=== PATIENT | female | born 1945 | race Caucasian/White ===

== ENCOUNTER 2022-07-26 07:52 | Outpatient (RCR) | payer MEDICARE, SELFPAY | END 2022-10-09 14:10 | disposition home or self-care (01) | LOC: HO.WCC 07:52 | PROVIDERS: PCP Internal Medicine; Referring Provider Podiatrist; Visit Provider Physician Assistant | DX: L97.512 Non-pressure chronic ulcer of other part of right foot with fat layer exposed (principal); G60.8 Other hereditary and idiopathic neuropathies; R73.9 Hyperglycemia, unspecified; I10 Essential (primary) hypertension; Z79.01 Long term (current) use of anticoagulants; Z79.899 Other long term (current) drug therapy | CPT/HCPCS: 11042; 11055; 99202; 99212 ==

== ENCOUNTER 2022-10-22 15:05 | Outpatient (RCR) | payer MEDICARE, SELFPAY ==
--- NOTE | ~2022-10-22 | XR_ITS ---
EXAMINATION: XR TOES, RIGHT CLINICAL INFORMATION: Right great toe nonhealing wound. Rule out osteomyelitis. COMPARISON: None TECHNIQUE: 3 views of the right toes were obtained. FINDINGS: There is an overlying bandage present. No acute fracture or dislocation is evident. There is some soft tissue swelling seen about the 1st toe distal phalanx. No definite cortical erosion is appreciated on the provided films. There is some mild spurring present. No gas within the soft tissues or radiopaque foreign body appreciated. Patient is status post previous ankle surgery. XR/XR toe RT min 2V IMPRESSION: Soft tissue swelling with no definite x-ray evidence of osteomyelitis. MRI or bone scan would be more sensitive than plain film study to rule out osteomyelitis.
[2022-10-24 11:34] LABS: MANUAL DIFF FLAG NO
[2022-10-24 12:24] LABS: Basophils Percent Auto 0.4 % (0-2); Eosinophils Absolute Auto 0.1 X10*3/uL (0.0-0.4); Eosinophils Percent Auto 1.2 % (0-4); Hematocrit 39.4 % (37.0-47.0); Hemoglobin 13.4 g/dl (12.0-16.0); Imm Gran Abs Auto 0.01 X10*3/uL (0.00-0.03); Imm Gran Pct Auto 0.2 % (0.0-0.4); Lymphocytes Absolute Auto 2.1 X10*3/uL (1.2-4.9); Lymphocytes Percent Auto 41.7 % (20-40); Mean Corpuscular Hemoglobin 33.2 pg (27.0-33.0); Mean Corpuscular Volume 97.5 fL (80.0-98.0); Mean Platelet Volume 9.3 fL (9.4-12.3); Monocytes Absolute Auto 0.3 X10*3/uL (0.1-1.2); Monocytes Percent Auto 5.8 % (2-11); Neutrophils Absolute Auto 2.6 x10*3/uL (2.0-8.3); Neutrophils Percent Auto 50.7 % (45-73); Platelet Count 244 X10*3/uL (160-400); Red Blood Count 4.04 X10*6/uL (4.20-5.50); Red Cell Distribution Width 13.7 % (11.0-16.0)
[2022-10-24 12:49] LABS: Anion Gap 13 (12-20); Blood Urea Nitrogen 18 mg/dL (9-16); C Reactive Protein 0.25 mg/dL (< or = 0.50); Calcium 9.5 mg/dL (8.4-10.2); Carbon Dioxide 30 mmol/L (22-29); Chloride 102 mmol/L (96-108); Estimated Glomerular Filt Rate 52; Glucose Random 100 mg/dL (60-115); Sodium 141 mmol/L (135-145)
[2022-10-24 12:52] LABS: Estimated Average Glucose 111 mg/dL; Hemoglobin A1c % 5.5 %
[2022-10-24 13:08] LABS: Erythrocyte Sedimentation Rate 38 MM/HR (0-20)
== END 2023-01-29 16:00 | disposition home or self-care (01) ==
LOC: HO.WCC 15:05
PROVIDERS: PCP Internal Medicine; Visit Provider Physician Assistant
DX: E11.621 Type 2 diabetes mellitus with foot ulcer (principal); L97.512 Non-pressure chronic ulcer of other part of right foot with fat layer exposed; E11.69 Type 2 diabetes mellitus with other specified complication; M86.471 Chronic osteomyelitis with draining sinus, right ankle and foot; E11.40 Type 2 diabetes mellitus with diabetic neuropathy, unspecified; I10 Essential (primary) hypertension; L84 Corns and callosities; Z79.2 Long term (current) use of antibiotics
CPT/HCPCS: 11042; 36415; 73660; 80048; 83036; 84134; 85025; 85652; 86140; 87070; 87077; 87186; 87205; 97597; 99212

== ENCOUNTER 2022-11-22 12:26 | Outpatient (REF) | payer MEDICARE, SELFPAY ==
--- NOTE | ~2022-11-22 | MR_ITS ---
EXAMINATION: MRI RIGHT FOOT WITHOUT AND WITH CONTRAST CLINICAL INFORMATION: Nonhealing right great toe wound. Rule out osteomyelitis. COMPARISON: X-ray 10/24/2022. TECHNIQUE: MRI in a high-field magnet without and with contrast. 8.5 mL Gadavist. FINDINGS: There is edema and enhancement in the soft tissues/subcutaneous tissues of the 1st toe, suggestive of cellulitis. Question undersurface soft tissue irregularity/ulceration. No loculated drainable fluid collections. There is bright T2 with intermediate-low T1 signal and enhancement in the proximal aspect of the 1st distal phalanx, with signal changes and enhancement more distally as well. Findings are suspicious for osteomyelitis. No additional areas of osteomyelitis seen. No evidence of acute fracture. Visualized tendons intact. No appreciable tenosynovitis. Visualized plantar aponeurosis intact. Mild edema in the intrinsic muscles of foot, nonspecific, can be seen with denervation changes. MR/MR foot RT wo/w con IMPRESSION: 1. Soft tissue edema and cellulitis of the 1st toe. No loculated fluid collection or abscess. 2. Findings in the 1st distal phalanx, suspicious for osteomyelitis, described above.
== END 2022-11-22 12:27 | disposition home or self-care (01) ==
LOC: HO.MRI 12:26
PROVIDERS: PCP Nurse Practitioner Pediatrics; Visit Provider Physician Assistant
DX: L97.512 Non-pressure chronic ulcer of other part of right foot with fat layer exposed (principal)
CPT/HCPCS: 73720; A9585

== ENCOUNTER → 2022-12-10 10:43 | Outpatient (BNVA) | payer MEDICARE, SELFPAY | PROVIDERS: PCP Nurse Practitioner Pediatrics; Visit Provider Internal Medicine | DX: M86.9 Osteomyelitis, unspecified (principal) | CPT/HCPCS: 99202 ==

== ENCOUNTER 2022-12-27 10:08 | Outpatient (REF) | payer MEDICARE, SELFPAY ==
--- NOTE | 2022-12-27 12:40 | HO.PICC ---
PICC Line Insertion NPICC Diagnosis: OSTEOMYELITIS FOOT INFECTION Indication: [FCI ANTIBX] Pertinent Labs: [REVIEWED] Technique: Following informed consent including risks, benefits and alternatives and using sterile technique including cap and mask, sterile gown, glove and drape, the [RIGHT] arm was prepped and draped in the usual sterile fashion of full barrier technique with CHG. Following completion of [place] Protocol the skin and soft tissues were anesthetized with 1% Lidocaine plain. Using ultrasound guidance, [RIGHT BASILIC] vein access was obtained ON FIRST ATTEMPT. Over an 0.018 wire through peel-away sheath, a [4FR SINGLE LUMEN PASV PICC SOLO line was positioned. Catheter length is [37CM] internal length, [3CM] external length, for a total trimmed length of [40CM]. The procedure was performed in [RM. 272]. Tip verification was performed by Stephani Bowers with Sherlock 3CG. Tip located in SVC. Ultrasound was used to document vein patency and for needle entry. A formal ultrasound picture and cardiac rhythm strip was recorded. Vascular Sail Finisher Machine has released the line for use and it is currently dressed with a StatLock, Tegaderm, and CHG disc. Verification has been performed for blood return and line patency. Arm Circumference: [30CM] Equipment: [OrderAhead POWER PICC SOLO] Catheter Type: [4 FR SINGLE LUMEN PASV PICC] Lot #: [[id number]]
== END 2022-12-27 10:09 | disposition home or self-care (01) ==
LOC: HO.RADIR 10:08
PROVIDERS: PCP Internal Medicine
DX: Z13.89 Encounter for screening for other disorder (principal)
CPT/HCPCS: 36573; C1751

== ENCOUNTER 2022-12-27 12:35 | Outpatient (REF) | payer MEDICARE, SELFPAY | END 2022-12-27 12:36 | disposition home or self-care (01) | LOC: HO.MDS 12:35 | PROVIDERS: Visit Provider Internal Medicine | DX: Z45.2 Encounter for adjustment and management of vascular access device (principal); M86.9 Osteomyelitis, unspecified | CPT/HCPCS: 36573; 96365; C1751; J1335 ==

== ENCOUNTER → 2023-01-02 11:26 | Outpatient (BNVA) | payer MEDICARE, SELFPAY | PROVIDERS: PCP Internal Medicine; Visit Provider Internal Medicine | DX: M86.9 Osteomyelitis, unspecified (principal) | CPT/HCPCS: 99212 ==

== ENCOUNTER 2023-01-03 12:39 | Outpatient (REF) | payer MEDICARE, SELFPAY ==
[2023-01-03 12:43] LABS: MANUAL DIFF FLAG NO
[2023-01-03 12:47] LABS: Basophils Percent Auto 0.4 % (0-2); Eosinophils Absolute Auto 0.1 X10*3/uL (0.0-0.4); Eosinophils Percent Auto 1.5 % (0-4); Hematocrit 38.7 % (37.0-47.0); Hemoglobin 13.1 g/dl (12.0-16.0); Imm Gran Abs Auto 0.03 X10*3/uL (0.00-0.03); Imm Gran Pct Auto 0.4 % (0.0-0.4); Lymphocytes Absolute Auto 1.9 X10*3/uL (1.2-4.9); Lymphocytes Percent Auto 26.3 % (20-40); Mean Corpuscular HGB Conc 33.9 g/dl (31.0-35.0); Mean Corpuscular Hemoglobin 32.4 pg (27.0-33.0); Mean Corpuscular Volume 95.8 fL (80.0-98.0); Mean Platelet Volume 9.1 fL (9.4-12.3); Monocytes Absolute Auto 0.3 X10*3/uL (0.1-1.2); Monocytes Percent Auto 3.9 % (2-11); Neutrophils Absolute Auto 4.9 x10*3/uL (2.0-8.3); Neutrophils Percent Auto 67.5 % (45-73); Platelet Count 210 X10*3/uL (160-400); Red Blood Count 4.04 X10*6/uL (4.20-5.50); Red Cell Distribution Width 13.6 % (11.0-16.0); White Blood Count 7.2 X10*3/uL (4.8-10.8)
[2023-01-03 13:48] LABS: Blood Urea Nitrogen 20 mg/dL (9-16); Estimated Glomerular Filt Rate > 60
== END 2023-01-03 12:40 | disposition home or self-care (01) ==
LOC: HO.HVNA 12:39
PROVIDERS: Visit Provider Internal Medicine
DX: M86.171 Other acute osteomyelitis, right ankle and foot (principal)
CPT/HCPCS: 82565; 84520; 85025

== ENCOUNTER 2023-01-10 16:33 | Outpatient (REF) | payer MEDICARE, SELFPAY ==
[2023-01-10 16:38] LABS: MANUAL DIFF FLAG NO
[2023-01-10 16:48] LABS: Basophils Percent Auto 0.7 % (0-2); Eosinophils Absolute Auto 0.1 X10*3/uL (0.0-0.4); Eosinophils Percent Auto 2.1 % (0-4); Imm Gran Abs Auto 0.01 X10*3/uL (0.00-0.03); Imm Gran Pct Auto 0.2 % (0.0-0.4); Lymphocytes Absolute Auto 1.7 X10*3/uL (1.2-4.9); Lymphocytes Percent Auto 38.9 % (20-40); Mean Corpuscular HGB Conc 33.3 g/dl (31.0-35.0); Mean Corpuscular Hemoglobin 31.8 pg (27.0-33.0); Mean Corpuscular Volume 95.5 fL (80.0-98.0); Mean Platelet Volume 9.2 fL (9.4-12.3); Monocytes Absolute Auto 0.3 X10*3/uL (0.1-1.2); Monocytes Percent Auto 7.3 % (2-11); Neutrophils Absolute Auto 2.2 x10*3/uL (2.0-8.3); Neutrophils Percent Auto 50.8 % (45-73); Platelet Count 198 X10*3/uL (160-400); Red Blood Count 3.77 X10*6/uL (4.20-5.50); Red Cell Distribution Width 13.5 % (11.0-16.0); White Blood Count 4.4 X10*3/uL (4.8-10.8)
[2023-01-10 17:35] LABS: Blood Urea Nitrogen 20 mg/dL (9-16); Estimated Glomerular Filt Rate > 60
== END 2023-01-10 16:34 | disposition home or self-care (01) ==
LOC: HO.HVNA 16:33
PROVIDERS: Visit Provider Internal Medicine
DX: M86.171 Other acute osteomyelitis, right ankle and foot (principal)
CPT/HCPCS: 36415; 82565; 84520; 85025

== ENCOUNTER → 2023-01-16 13:56 | Outpatient (BNVA) | payer MEDICARE, SELFPAY | PROVIDERS: PCP Internal Medicine; Visit Provider Internal Medicine | DX: M86.679 Other chronic osteomyelitis, unspecified ankle and foot (principal) | CPT/HCPCS: 99212 ==

== ENCOUNTER 2023-01-17 15:45 | Outpatient (REF) | payer MEDICARE, SELFPAY ==
[2023-01-17 15:50] LABS: MANUAL DIFF FLAG NO
[2023-01-17 15:59] LABS: Basophils Percent Auto 0.3 % (0-2); Eosinophils Absolute Auto 0.1 X10*3/uL (0.0-0.4); Eosinophils Percent Auto 1.7 % (0-4); Hemoglobin 12.4 g/dl (12.0-16.0); Imm Gran Abs Auto 0.02 X10*3/uL (0.00-0.03); Imm Gran Pct Auto 0.3 % (0.0-0.4); Lymphocytes Absolute Auto 2.1 X10*3/uL (1.2-4.9); Lymphocytes Percent Auto 35.3 % (20-40); Mean Corpuscular HGB Conc 33.5 g/dl (31.0-35.0); Mean Corpuscular Volume 95.4 fL (80.0-98.0); Mean Platelet Volume 9.6 fL (9.4-12.3); Monocytes Absolute Auto 0.3 X10*3/uL (0.1-1.2); Monocytes Percent Auto 5.2 % (2-11); Neutrophils Absolute Auto 3.3 x10*3/uL (2.0-8.3); Neutrophils Percent Auto 57.2 % (45-73); Platelet Count 205 X10*3/uL (160-400); Red Blood Count 3.88 X10*6/uL (4.20-5.50); Red Cell Distribution Width 13.8 % (11.0-16.0); White Blood Count 5.8 X10*3/uL (4.8-10.8)
[2023-01-17 16:34] LABS: Blood Urea Nitrogen 19 mg/dL (9-16); Estimated Glomerular Filt Rate > 60
== END 2023-01-17 15:46 | disposition home or self-care (01) ==
LOC: HO.HVNA 15:45
PROVIDERS: Visit Provider Internal Medicine
DX: M86.171 Other acute osteomyelitis, right ankle and foot (principal)
CPT/HCPCS: 36415; 82565; 84520; 85025

== ENCOUNTER 2023-01-24 14:55 | Outpatient (REF) | payer MEDICARE, SELFPAY ==
[2023-01-24 14:59] LABS: MANUAL DIFF FLAG NO
[2023-01-24 15:05] LABS: Basophils Percent Auto 0.5 % (0-2); Eosinophils Absolute Auto 0.1 X10*3/uL (0.0-0.4); Eosinophils Percent Auto 3.6 % (0-4); Hematocrit 38.3 % (37.0-47.0); Hemoglobin 12.7 g/dl (12.0-16.0); Imm Gran Abs Auto 0.01 X10*3/uL (0.00-0.03); Imm Gran Pct Auto 0.3 % (0.0-0.4); Lymphocytes Absolute Auto 1.7 X10*3/uL (1.2-4.9); Lymphocytes Percent Auto 44.3 % (20-40); Mean Corpuscular HGB Conc 33.2 g/dl (31.0-35.0); Mean Corpuscular Hemoglobin 31.7 pg (27.0-33.0); Mean Corpuscular Volume 95.5 fL (80.0-98.0); Mean Platelet Volume 9.4 fL (9.4-12.3); Monocytes Absolute Auto 0.2 X10*3/uL (0.1-1.2); Monocytes Percent Auto 6.1 % (2-11); Neutrophils Absolute Auto 1.8 x10*3/uL (2.0-8.3); Neutrophils Percent Auto 45.2 % (45-73); Platelet Count 224 X10*3/uL (160-400); Red Blood Count 4.01 X10*6/uL (4.20-5.50); Red Cell Distribution Width 13.8 % (11.0-16.0); White Blood Count 3.9 X10*3/uL (4.8-10.8)
[2023-01-24 15:46] LABS: Blood Urea Nitrogen 20 mg/dL (9-16); Estimated Glomerular Filt Rate > 60
== END 2023-01-24 14:56 | disposition home or self-care (01) ==
LOC: HO.HVNA 14:55
PROVIDERS: Visit Provider Internal Medicine
DX: M86.171 Other acute osteomyelitis, right ankle and foot (principal)
CPT/HCPCS: 36415; 82565; 84520; 85025

== ENCOUNTER → 2023-01-29 13:02 | Outpatient (BNVA) | payer MEDICARE, SELFPAY | PROVIDERS: PCP Internal Medicine; Visit Provider Internal Medicine | DX: M86.9 Osteomyelitis, unspecified (principal) | CPT/HCPCS: 99212 ==

== ENCOUNTER 2023-01-31 14:57 | Outpatient (REF) | payer MEDICARE, SELFPAY ==
[2023-01-31 15:01] LABS: MANUAL DIFF FLAG NO
[2023-01-31 15:06] LABS: Basophils Percent Auto 0.6 % (0-2); Eosinophils Absolute Auto 0.1 X10*3/uL (0.0-0.4); Eosinophils Percent Auto 2.8 % (0-4); Hematocrit 37.5 % (37.0-47.0); Hemoglobin 12.6 g/dl (12.0-16.0); Imm Gran Abs Auto 0.01 X10*3/uL (0.00-0.03); Imm Gran Pct Auto 0.2 % (0.0-0.4); Lymphocytes Absolute Auto 1.7 X10*3/uL (1.2-4.9); Lymphocytes Percent Auto 36.5 % (20-40); Mean Corpuscular HGB Conc 33.6 g/dl (31.0-35.0); Mean Corpuscular Hemoglobin 32.1 pg (27.0-33.0); Mean Corpuscular Volume 95.4 fL (80.0-98.0); Mean Platelet Volume 9.4 fL (9.4-12.3); Monocytes Absolute Auto 0.3 X10*3/uL (0.1-1.2); Neutrophils Absolute Auto 2.5 x10*3/uL (2.0-8.3); Neutrophils Percent Auto 53.9 % (45-73); Platelet Count 215 X10*3/uL (160-400); Red Blood Count 3.93 X10*6/uL (4.20-5.50); Red Cell Distribution Width 13.8 % (11.0-16.0); White Blood Count 4.7 X10*3/uL (4.8-10.8)
[2023-01-31 16:19] LABS: Blood Urea Nitrogen 23 mg/dL (9-16); Estimated Glomerular Filt Rate > 60
== END 2023-01-31 14:58 | disposition home or self-care (01) ==
LOC: HO.HVNA 14:57
PROVIDERS: Visit Provider Internal Medicine
DX: M86.171 Other acute osteomyelitis, right ankle and foot (principal)
CPT/HCPCS: 36415; 82565; 84520; 85025

== ENCOUNTER 2023-02-08 15:12 | Outpatient (REF) | payer MEDICARE, SELFPAY ==
[2023-02-08 15:17] LABS: MANUAL DIFF FLAG NO
[2023-02-08 15:24] LABS: Basophils Percent Auto 0.5 % (0-2); Eosinophils Absolute Auto 0.1 X10*3/uL (0.0-0.4); Eosinophils Percent Auto 2.1 % (0-4); Hematocrit 35.7 % (37.0-47.0); Hemoglobin 12.1 g/dl (12.0-16.0); Imm Gran Abs Auto 0.02 X10*3/uL (0.00-0.03); Imm Gran Pct Auto 0.5 % (0.0-0.4); Lymphocytes Absolute Auto 1.7 X10*3/uL (1.2-4.9); Lymphocytes Percent Auto 40.1 % (20-40); Mean Corpuscular HGB Conc 33.9 g/dl (31.0-35.0); Mean Corpuscular Hemoglobin 32.5 pg (27.0-33.0); Mean Platelet Volume 9.2 fL (9.4-12.3); Monocytes Absolute Auto 0.2 X10*3/uL (0.1-1.2); Monocytes Percent Auto 5.6 % (2-11); Neutrophils Absolute Auto 2.2 x10*3/uL (2.0-8.3); Neutrophils Percent Auto 51.2 % (45-73); Platelet Count 199 X10*3/uL (160-400); Red Blood Count 3.72 X10*6/uL (4.20-5.50); Red Cell Distribution Width 13.8 % (11.0-16.0); White Blood Count 4.3 X10*3/uL (4.8-10.8)
[2023-02-08 15:57] LABS: Blood Urea Nitrogen 24 mg/dL (9-16); Estimated Glomerular Filt Rate > 60
== END 2023-02-08 15:13 | disposition home or self-care (01) ==
LOC: HO.HVNA 15:12
PROVIDERS: Visit Provider Internal Medicine
DX: M86.171 Other acute osteomyelitis, right ankle and foot (principal)
CPT/HCPCS: 36415; 82565; 84520; 85025

== ENCOUNTER → 2023-03-25 13:19 | Outpatient (BNVA) | payer MEDICARE, SELFPAY | PROVIDERS: PCP Internal Medicine; Visit Provider Internal Medicine | DX: M86.9 Osteomyelitis, unspecified (principal) | CPT/HCPCS: 99212 ==

== ENCOUNTER 2023-04-02 07:54 | Outpatient (RCR) | payer MEDICARE, SELFPAY | END 2023-04-19 14:10 | disposition home or self-care (01) | LOC: HO.WCC 07:54 | PROVIDERS: PCP Internal Medicine; Visit Provider Physician Assistant | DX: E11.69 Type 2 diabetes mellitus with other specified complication (principal); M86.471 Chronic osteomyelitis with draining sinus, right ankle and foot; E11.42 Type 2 diabetes mellitus with diabetic polyneuropathy; L84 Corns and callosities; I10 Essential (primary) hypertension; Z95.0 Presence of cardiac pacemaker | CPT/HCPCS: 99212; 99213 ==

== ENCOUNTER 2023-11-19 10:38 | Outpatient (REF) | payer MEDICARE, SELFPAY | END 2023-11-19 10:39 | disposition home or self-care (01) | LOC: HO.HOSX 10:38 | PROVIDERS: Visit Provider Orthopaedic Surgery | DX: Z13.89 Encounter for screening for other disorder (principal) ==

== ENCOUNTER 2023-11-27 08:54 | Outpatient (AMB) | payer MEDICARE, SELFPAY ==
[2023-11-27 08:55] VITALS: BMI 33.1
--- NOTE | 2023-11-27 08:55 | MHC.OFFVIS ---
Intake Vital Signs 11/27/23 08:55 Height 5 ft 4 in Weight 193 lb BMI 33.1 Intake Visit Reasons: TANKMAN-Left Knee Pain Intake Note: Mundo is a 78 year old female who presents as a new patient with Left knee pain and cracking. Patient reports that the pain has been going on for about a year and a half . Patient denies and numbness or tingling. She has done physical therapy which aggravated her pain. She has had multiple injections. The most recent injection gave her minimal relief. She has also tried Tylenol and anti-inflammatory medicines which gave her minimal relief. The patient has difficulty walking even short distances because of her pain. At this point her left knee pain is interfering with her activities of daily living and her ability to sleep well through the night. Allergies No Known Allergies Allergy (Verified 11/27/23 09:11) Medication List - Last Reconciled 11/27/23 by Inocente Mendoza MD doxepin 10 mg PO BEDTIME gabapentin 300 mg PO DAILY hydrochlorothiazide 25 mg PO DAILY omeprazole 20 mg PO DAILY pirfenidone (Esbriet) 267 mg PO TID simvastatin 20 mg PO DAILY triazolam 0.25 mg PO BEDTIME PRN [facility] Medical History CAD (coronary artery disease) Neuropathy Osteomyelitis Pulmonary fibrosis Physical Exam Vital Signs: BMI result Body Mass Index 33.1 Const Other: Well-nourished well-developed very friendly female awake alert and oriented x3 in no acute distress Extrem Other: Bilateral lower extremity examination shows good capillary refill, no skin lesions noted, normal sensation light touch Left knee examination shows a minimal effusion, palpable crepitus with range of motion, pain with range of motion, range of motion from -3 degrees to 115 degrees, no instability Results Reviewed Results Reviewed: X-rays of the patient's left knee show grade 4 end-stage degenerative joint disease with [id number] arthritis, subchondral sclerosis, osteophyte formation, no acute bony abnormalities Assessment & Plan Assessment & Plan (1) Arthritis of left knee: Code(s): M17.12 - Unilateral primary osteoarthritis, left knee Plan Ms. Vasquez presents with progressively worsening left knee pain due to end-stage degenerative joint disease. I had a lengthy discussion with the patient regarding the treatment options. At this point she has failed continued non operative treatments. The risks and benefits of left total knee replacement surgery were discussed at length with the patient. The patient wishes to proceed with surgery. She will be scheduled for next available date. I will see her back 1 week prior to her surgery to answer any final questions that she might have. Feel free to call me at any time should questions regarding her orthopedic management arise. I spent 22 minutes in reviewing the patient's records and imaging studies, seeing the patient and documenting in the medical record. Orders: Orders XR knee LT 3V Today M25.562 - Pain in left knee Coding Level of Care Code Est Pt Level 2 (93218) Diagnoses Arthritis of left knee M17.12
== END 2023-11-27 09:34 | disposition home or self-care (01) ==
PROVIDERS: PCP Internal Medicine; Visit Provider Orthopaedic Surgery
DX: M17.12 Unilateral primary osteoarthritis, left knee (principal)
CPT/HCPCS: 99213

== ENCOUNTER 2023-11-27 10:31 | Outpatient (REF) | payer MEDICARE, SELFPAY ==
--- NOTE | ~2023-11-27 | XR_ITS ---
EXAMINATION: XR KNEE, LEFT CLINICAL INFORMATION: Left knee pain. COMPARISON: None available. TECHNIQUE: Three views of the left knee. FINDINGS: Examination demonstrates moderate degenerative change predominantly involving the medial compartment, with joint space narrowing, sclerosis, and osteophyte formation. There may be trace suprapatellar fluid. No fracture or dislocation is identified. Bony mineralization appears preserved. No lytic or sclerotic bony lesion is seen. Mild vascular calcification. XR/XR knee LT 3V IMPRESSION: Osteoarthritis.
== END 2023-11-27 10:32 | disposition home or self-care (01) ==
LOC: HO.HOSX 10:31
PROVIDERS: Visit Provider Orthopaedic Surgery
DX: M17.12 Unilateral primary osteoarthritis, left knee (principal)
CPT/HCPCS: 73562; 99212

== ENCOUNTER → 2024-02-10 08:53 | Outpatient (BNVA) | payer MEDICARE, SELFPAY | PROVIDERS: PCP Internal Medicine; Visit Provider Orthopaedic Surgery ==

== ENCOUNTER 2024-03-12 08:13 | Outpatient (AMB) | payer MEDICARE, SELFPAY ==
[2024-03-12 08:20] VITALS: BMI 33.1
--- NOTE | 2024-03-12 08:20 | A.OFFVIS_ITS ---
Vital Signs 03/12/24 08:20 Height 5 ft 4 in Weight 193 lb BMI 33.1 Intake Visit Reasons: pre op left TKA 03/16/24 with Intake Note: Mundo is a 78 year old female who presents with complaints of progressively worsening left knee pain. The patient reports that the pain has been going on for about a year and a half . Patient denies and numbness or tingling. She has done physical therapy which aggravated her pain. She has had multiple injections. The most recent injection gave her minimal relief. She has also tried Tylenol and anti-inflammatory medicines which gave her minimal relief. The patient has difficulty walking even short distances because of her pain. At this point her left knee pain is interfering with her activities of daily living and her ability to sleep well through the night. Allergies morphine Allergy (Severe, Verified 03/12/24 08:26) Nausea and Vomiting Medication List - Last Reconciled 03/12/24 by Inocente Mendoza MD apixaban (Eliquis) 5 mg PO BID doxepin 10 mg PO Q OTHER DAY gabapentin 600 mg PO BEDTIME gabapentin 300 mg PO BID hydrochlorothiazide 25 mg PO DAILY multivitamin 1 tab PO DAILY omeprazole 20 mg PO BID pirfenidone (Esbriet) 801 mg PO TID simvastatin 20 mg PO BEDTIME triazolam 0.25 mg PO Q OTHER DAY walker Folding front wheeled walker [facility] Medical History Insomnia Peripheral neuropathy A-fib History of ectopic Personal history of COVID-19 (~09/2021) DJD (degenerative joint disease) Osteoarthritis Hiatal hernia GERD (gastroesophageal reflux disease) Pancreatic cyst RLS (restless legs syndrome) LUL (obstructive sleep apnea) Depression Anxiety Elevated cholesterol HTN (hypertension) Carotid stenosis, bilateral Hx of cardiac pacemaker Neuropathy Pulmonary fibrosis CAD (coronary artery disease) Osteomyelitis Surgical History S/P PICC central line placement (~03/2022) Hx of appendectomy History of open reduction and internal fixation (ORIF) procedure Hx of arthroscopic knee surgery Hx of hysterectomy History of esophagogastroduodenoscopy (EGD) Hx of colonoscopy Social History Household Members Other:: adult son Are you a primary critical care nurse practitioner to a significant other at home: No Do you presently have visiting nurse or other home services: No Comment: aware of trip hazard Patient Tobacco Use Status: Never used Tobacco Second Hand Smoke Exposure: Yes ( smoked lived together 23 years) Physical Exam Vital Signs: BMI result Body Mass Index 33.1 Const Other: Well-nourished well-developed very friendly female awake alert and oriented x3 in no acute distress Extrem Other: Bilateral lower extremity examination shows good capillary refill, no skin lesions noted, normal sensation light touch Left knee examination shows a minimal effusion, palpable crepitus with range of motion, pain with range of motion, range of motion from -3 degrees to 115 degrees, no instability Results Reviewed Results Reviewed: X-rays of the patient's left knee show end-stage degenerative joint disease with grade 4 [id number] arthritis, subchondral sclerosis, osteophyte formation, no acute bony abnormalities Assessment & Plan Assessment & Plan (1) Osteoarthritis of left knee: Code(s): M17.12 - Unilateral primary osteoarthritis, left knee Category: Medical Plan Ms. Vasquez presents with progressively worsening left knee pain due to end- stage degenerative joint disease. I had a lengthy discussion with the patient regarding the treatment options. At this point she has failed continued non operative treatments. The risks and benefits of left total knee replacement surgery were discussed at length with the patient. The patient wishes to proceed with surgery. licensing services clerk will be consulted following her surgery for home physical therapy and nursing versus possible inpatient rehabilitation. The patient will follow-up as instructed. Feel free to call me at any time should questions regarding her orthopedic management arise. I spent 20 minutes in reviewing the patient's records and imaging studies, seeing the patient and documenting in the medical record. Coding Level of Care Code Est Pt Level 3 (31690) Diagnoses Osteoarthritis of left knee M17.12
== END 2024-03-12 08:44 | disposition home or self-care (01) ==
PROVIDERS: PCP Internal Medicine; Visit Provider Orthopaedic Surgery
DX: M17.12 Unilateral primary osteoarthritis, left knee (principal)
CPT/HCPCS: 99213

== ENCOUNTER → 2024-03-12 08:13 | Outpatient (BNVA) | payer MEDICARE, SELFPAY | PROVIDERS: PCP Internal Medicine; Visit Provider Orthopaedic Surgery | DX: M17.12 Unilateral primary osteoarthritis, left knee (principal) | CPT/HCPCS: 99212 ==

== ENCOUNTER 2024-03-16 08:27 | Inpatient (IN) | payer MEDICARE, SELFPAY ==
[2024-03-06 12:04] VITALS: BP 138/66; PULSE 84; RESP 18; O2SAT 95; BMI 31.8
--- NOTE | 2024-03-06 12:46 | P.CONAN_ITS ---
Documented by User: Norma Pagan NP 03/10/24 13:16 HPI - Anesthesia Eval Consult details Narrative: 78yo F for Left Knee Replacement Total Medically optimized per [facility] clinic Follows [facility] cardiology for symptomatic tristin with PAF, pacer, chronic LBBB. Last office visit 04/2023, stable with yearly f/u. Follows [facility] pulsc for ideopathic pulmonary fibrosis with exertional dyspnea. Last office visit 10/2023. Stable on esbriet and pulmo rehab. Some exercise induced O2 desat with 6-min walk test. Plan for 04/2024 f/u. Eliquis. Clearance and cardiology note states PAF, pt denies CAD Pacer in situ 2020 after Covid Carotid stenosis LUL. Occasional CPAP use Pulmonary fibrosis. Follows Dr Ernie che. Osteomyelitis 2022. Abx completed with wound clinic/Dr Trevor ODOM Active Problems Active Problems: All Active Problems Arthritis of left knee (Acute) Left knee pain (Acute) Osteomyelitis (Acute) Neuropathy (Acute) Pulmonary fibrosis (Acute) CAD (coronary artery disease) (Acute) Past Medical History Medical History Insomnia Peripheral neuropathy A-fib History of ectopic Personal history of COVID-19 (~09/2021) DJD (degenerative joint disease) Osteoarthritis Hiatal hernia GERD (gastroesophageal reflux disease) Pancreatic cyst RLS (restless legs syndrome) LUL (obstructive sleep apnea) Depression Anxiety Elevated cholesterol HTN (hypertension) Carotid stenosis, bilateral Hx of cardiac pacemaker Neuropathy Pulmonary fibrosis CAD (coronary artery disease) Osteomyelitis Family History Family history of problems with anesthesia: No Surgical History Surgical History S/P PICC central line placement (~03/2022) Hx of appendectomy History of open reduction and internal fixation (ORIF) procedure Hx of arthroscopic knee surgery Hx of hysterectomy History of esophagogastroduodenoscopy (EGD) Hx of colonoscopy History of Problems with Anesthesia: No Social History Social History Household Members Other:: adult son Are you a primary career technical supervisor to a significant other at home: No Do you presently have visiting nurse or other home services: No Comment: aware of trip hazard Patient Tobacco Use Status: Never used Tobacco Second Hand Smoke Exposure: Yes ( smoked lived together 23 years) Use of substances other than those prescribed or required for medical reasons: No Have you been hit, kicked, punched, or otherwise hurt by someone within the past year? If so, by whom?: No Spiritual Healthcare Practices: none Pentecostalism Healthcare Practices: none Cultural Healthcare Practices: none Are you DNR?: No Advance Directives: No Advance Directives Information Provided: Yes Advance Directives on File: No Recently lost weight without trying: No Nutrition Risks: Surgical patient >75years Meds Allergies Allergy/AdvReac Type Severity Reaction Status Date / Time morphine Allergy Severe Nausea and Verified 03/16/24 09:01 Vomiting Home Medications ?Medication ?Instructions ?Recorded ?Confirmed ?Last Taken ?Type gabapentin 300 mg capsule 300 mg PO BID 12/10/22 03/16/24 03/16/24 History hydrochlorothiazide 25 mg tablet 25 mg PO DAILY 12/10/22 03/16/24 03/15/24 History omeprazole 20 mg tablet,delayed 20 mg PO BID 12/10/22 03/16/24 03/16/24 History release pirfenidone 267 mg capsule 801 mg PO TID 12/10/22 03/16/24 03/16/24 History (Esbriet) simvastatin 20 mg tablet 20 mg PO BEDTIME 12/10/22 03/16/24 03/15/24 History doxepin 10 mg capsule 10 mg PO Q OTHER DAY 11/27/23 03/16/24 03/15/24 History triazolam 0.25 mg tablet 0.25 mg PO Q OTHER DAY 11/27/23 03/16/24 03/14/24 History apixaban 5 mg tablet (Eliquis) 5 mg PO BID 03/05/24 03/16/24 03/12/24 History gabapentin 600 mg tablet 600 mg PO BEDTIME 03/05/24 03/16/24 03/15/24 History multivitamin 1 tab PO DAILY 03/05/24 03/16/24 03/15/24 History Exam Height,Weight and Vital Signs: Height 5 ft 4 in Weight 83.915 kg Last Vital Signs Pulse 84 03/06/24 12:04 Resp 18 03/06/24 12:04 BP 138/66 03/06/24 12:04 Pulse Ox 95 03/06/24 12:04 O2 Del Method Room Air 03/06/24 12:04 Pertinent Lab Results Pertinent Lab Results: Lab Results 03/06/24 03/06/24 Range/Units 12:30 13:26 Nasal Screen MRSA (PCR) NEGATIVE (Negative) Nasal S. aureus Screen NEGATIVE (Negative) Nasal MRSA/S.aureus Interp SEE NOTE Blood Type O Positive Antibody Screen NEGATIVE A1C, BMP, CBC 01/21/24 from outside facility WNL Narrative Narrative: EKG 02/2024 SR @ 72 LBBB Unchagned from previous Pacer interr 11/2023 Medtronic AAI - DDD 60-130bpm Elevated atrial threshold which is known with very little pacing and monitoring (had been seen with rep in past). Otherwise, nml lead and device function. 3 NSVT to max 207 bpm to max 1 secs since download. 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 AT/AF burden is 0%. Battery life 11.5 years. Carotid Duplex 2021 <50% stenosis bilat ICA ECHO 2020 1. Mild to mod concentric LVH. Mod to severe discrete upper septal thickening. 2. LV systolic function is nml. LVEF 55-60%. No RWMA 3. LA mildly dilated 4. RV size and funtion appears grossly nml 5. No significant valve disease Airway Mallampati Class: II TM Dist: >3cm Neck ROM: Full Partial: Upper Heart: RRR Lungs: CTAB Assessment and Plan Assessment Anesthesia Assessment: Anesthesia Plan Discussed and PAT Visit Final Anesthetic Review Family History of Problems with Anesthesia: No History of Problems with Anesthesia: No Documented by User: Prabha Clifton MD 03/16/24 09:10 [facility] Past Medical History Medical History Insomnia Peripheral neuropathy A-fib History of ectopic Personal history of COVID-19 (~09/2021) DJD (degenerative joint disease) Osteoarthritis Hiatal hernia GERD (gastroesophageal reflux disease) Pancreatic cyst RLS (restless legs syndrome) LUL (obstructive sleep apnea) Depression Anxiety Elevated cholesterol HTN (hypertension) Carotid stenosis, bilateral Hx of cardiac pacemaker Neuropathy Pulmonary fibrosis CAD (coronary artery disease) Osteomyelitis Surgical History Surgical History S/P PICC central line placement (~03/2022) Hx of appendectomy History of open reduction and internal fixation (ORIF) procedure Hx of arthroscopic knee surgery Hx of hysterectomy History of esophagogastroduodenoscopy (EGD) Hx of colonoscopy Social History Social History Household Members Other:: adult son Are you a primary career technical supervisor to a significant other at home: No Do you presently have visiting nurse or other home services: No Comment: aware of trip hazard Patient Tobacco Use Status: Never used Tobacco Second Hand Smoke Exposure: Yes ( smoked lived together 23 years) Use of substances other than those prescribed or required for medical reasons: No Have you been hit, kicked, punched, or otherwise hurt by someone within the past year? If so, by whom?: No Spiritual Healthcare Practices: none Pentecostalism Healthcare Practices: none Cultural Healthcare Practices: none Are you DNR?: No Advance Directives: No Advance Directives Information Provided: Yes Advance Directives on File: No Recently lost weight without trying: No Nutrition Risks: Surgical patient >75years Meds Allergies Allergy/AdvReac Type Severity Reaction Status Date / Time morphine Allergy Severe Nausea and Verified 03/16/24 09:01 Vomiting Home Medications ?Medication ?Instructions ?Recorded ?Confirmed ?Last Taken ?Type gabapentin 300 mg capsule 300 mg PO BID 12/10/22 03/16/24 03/16/24 History hydrochlorothiazide 25 mg tablet 25 mg PO DAILY 12/10/22 03/16/24 03/15/24 History omeprazole 20 mg tablet,delayed 20 mg PO BID 12/10/22 03/16/24 03/16/24 History release pirfenidone 267 mg capsule 801 mg PO TID 12/10/22 03/16/24 03/16/24 History (Esbriet) simvastatin 20 mg tablet 20 mg PO BEDTIME 12/10/22 03/16/24 03/15/24 History doxepin 10 mg capsule 10 mg PO Q OTHER DAY 11/27/23 03/16/24 03/15/24 History triazolam 0.25 mg tablet 0.25 mg PO Q OTHER DAY 11/27/23 03/16/24 03/14/24 History apixaban 5 mg tablet (Eliquis) 5 mg PO BID 03/05/24 03/16/24 03/12/24 History gabapentin 600 mg tablet 600 mg PO BEDTIME 03/05/24 03/16/24 03/15/24 History multivitamin 1 tab PO DAILY 03/05/24 03/16/24 03/15/24 History Assessment and Plan Final Anesthetic Review NPO: Yes ASA Class: III Final Preanesthetic Review: No Changes in Pt Med Stat, Meds/Allgs Chart Reviewed, Consent Obtained/Reviewed and Anes Risks/Benef Reviewed Patient Risk: Intermediate Procedure Risk: Intermediate Anesthetic Plan Anesthetic Plan: Spinal and Regional Block Disposition: Standard PACU
[2024-03-06 16:25] LABS: MRSA Nasal PCR NEGATIVE (Negative); SA Nasal PCR NEGATIVE (Negative)
[2024-03-16] VITALS (8 sets, daily range): BP systolic 133–175; BP diastolic 46–76; PULSE 59–72; RESP 14–20; TEMP 35.8–36.6; O2SAT 91–99; BMI 31.6; BMI 31.5
[2024-03-16] MEDS: Lactated Ringers 1,000 ML 100 ML IVCONT ×2 (09:23→15:58)
[2024-03-16] MEDS: vancomycin HCL 1,500 MG in 0.9 % Sodium Chloride 500 ML 333.33 MG IV ×2 (09:23→21:24)
--- NOTE | 2024-03-16 13:43 | PHA.MEDREC ---
Pharmacy Consult ? Medication Reconciliation Pharmacy has reviewed the medication reconciliation completed by nursing. Jennie Warren, EliudD
--- NOTE | 2024-03-16 13:50 | P.BOP_ITS ---
Brief Operative Note Date of Service: 03/16/24 Pre-op diagnosis: Left knee degenerative joint disease Post-op diagnosis: same Procedure: Left total knee arthroplasty Implants: Maljamar Triathlon cemented posterior stabilized total knee arthroplasty with a femoral component size 2 left, tibial component size 3, polyethylene liner size 3 with 9 mm of thickness, a symmetric patellar component size 29 with 8 mm of thickness Surgeon: Inocente Mendoza MD Anesthesia: regional and spinal Was an Bricklayer Helper used for this Procedure?: No Bricklayer Helper: Bouchra Wilhelm Estimated blood loss (mL): 150 Pathology: other (Bony fragments from the left femur, tibia and patella) Condition: stable Disposition: PACU
--- NOTE | 2024-03-16 13:52 | P.OP_ITS ---
Operative Note Operative Note Date of Service: 03/16/24 Narrative: After the patient was identified as Mundo Vasquez and her left knee was initialed by myself the patient was brought to the holding area where a left leg nerve block was performed by the anesthesiologist in routine fashion. The patient was then brought to the operating room where conscious sedation and spinal anesthesia were performed by the anesthesiologist in routine fashion. Because the patient has a history of MRSA infection she was given both IV Ancef and IV vancomycin preoperatively for infection prophylaxis. The patient's left lower extremity was prepped and draped in sterile fashion. A formal time-out was completed. The patient's left knee was placed onto a small bump to produce 30? of knee flexion during exposure. A #10 scalpel blade was used to make a midline incision extending 1 handbreadth proximal and distal to the patella. A second #10 scalpel blade was used to dissect the subcutaneous tissues down to the extensor mechanism. The subcutaneous flaps were maintained as thick as possible. A medial parapatellar arthrotomy was then performed using a #10 scalpel blade. The arthrotomy was begun just medial to the patellar tendon. The arthrotomy was continued 1 cm medial to the patella and then 5 mm into the medial aspect of the quadriceps tendon. The infrapatellar fat pad was partially excised to help with exposure. The soft tissue retinaculum was raised one-half of the way around the medial aspect of the proximal tibia. The patella was everted and the knee was flexed to 90?. There was no injury to the patellar tendon or its insertion onto the tibial tubercle. A drill bit was introduced into the distal aspect of the femur with a starting point 1 cm anterior to the origin of the posterior cruciate ligament. The intramedullary alignment tanvir was put into place. The distal alignment guide was set for a 5 degree valgus cut. The distal cutting block was put into place and was held with 4 pins. The intramedullary alignment tanvir was removed. Soft tissues were retracted in the distal femoral cut was made using a sagittal saw. The distal aspect of the femur measured to be a size 2 left component. Two drill holes were placed into the distal aspect of the femur marking 3? of external rotation. The distal cutting block was impacted into place and was held with 2 pins. Soft tissues were retracted and the 4 distal femoral cuts were made using a sagittal saw. F inal notching and drilling of the distal aspect of the femur were performed in routine fashion. The trial femoral component was impacted into place. The knee was taken through a full range of motion. The patella tracked well. The patella was everted and the knee was flexed to 90?. The trial component was removed and our attention was directed to the proximal tibia. The medial and lateral menisci were removed using a #10 scalpel blade. A small rim of the medial meniscus was left intact to help prevent injury to the medial collateral ligament. A drill bit was then introduced into the proximal tibia with a starting point midway from medial to lateral and one-third of the way posteriorly. The intramedullary alignment tanvir was put into place. The proximal tibial cutting guide was placed over the alignment tanvir in line with the 2nd toe. The guide was held in place using 3 pins. The intramedullary alignment tanvir was removed. Soft tissues were retracted and the proximal tibial cut was made using a sagittal saw. The proximal tibia measured to be a size 3 component. The tibial tray was put into place with a 9 mm liner. The femoral component was impacted into place. The knee was taken through a full range of motion. There was full flexion and full extension. There was no instability with varus or valgus stress testing with the knee in flexion or extension. The patella tra cked well with no medially directed force. The rotation of the tibial tray was marked using electrocautery with the knee in extension. The patella was everted and the knee was flexed to 90?. All trial components were removed. The tibial tray was placed onto the proximal tibia in line with the electrocautery tristan. The tray was held in place using 3 pins. Final broaching of the proximal tibia was performed in routine fashion. The trial liner and trial femoral component were put into place. The knee was brought into extension and our attention was directed to the patella. The patella measured 25 mm in thickness. The patellar resection guide was set for a 10 mm resection. Soft tissues were retracted and the patella cut was made using a sagittal saw. The remaining patella measured 1 5 mm in thickness. The undersurface of the patella was measured to be a size 29 symmetric component. Three drill holes were placed into the undersurface of the patella in routine fashion. The trial component was put into place. The knee was taken through a full range of motion. The patella tracked well. The patella was everted and the knee was flexed to 90?. All trial components were removed. The knee was once again brought into extension and placed onto a small bump. The knee joint was irrigated with copious amounts of normal saline solution via pulse lavage while the cement was mixed. The patella was everted and the knee was flexed to 90?. A small amount of cement was placed along the posterior aspects of the tibial and femoral components. Cement was then pressurized into the proximal tibia. The tibial component was impacted into place. Any excess cement was removed. The polyethylene liner was then impacted into place. Cement was then pressurized into the distal aspect of the femur. A small amount of cement was placed into the intramedullary canal to help reduce bleeding. The femoral component was impacted into place. Any excess cement was removed. The knee was then brought into extension. Cement was pressurized into the undersurface of the patella. The patellar component was put into place and was held with a patella clamp. Any excess cement was removed. Once the cement had hardened the patellar clamp was removed. The knee was taken through a full range of motion. There was full flexion and extension. There was no instability with varus or valgus stress testing with the knee in flexion or extension. The patella tracked well with no medially directed force. The knee joint was irrigated with copious amounts of normal saline solution via pulse lavage. Any significant bleeding vessels were coagulated. The patient's left knee was placed onto a small bump. The arthrotomy was closed with #2 Ethibond [id number] interrupted suture as well as #1 Vicryl [id number] interrupted suture. The wound was once again irrigated. The subcutaneous tissues were closed with 0 Vicryl and 2-0 Vicryl interrupted sutures. The skin was closed with skin suyapa. Dry sterile dressing and Jose Manuel bandages were placed over the patient's left knee. The patient was awake and alert. The patient was transferred to the recovery room in stable condition.
--- NOTE | 2024-03-16 15:44 | HO.PM.IMCN ---
History of Present Illness Data of Consult Service Date: 03/16/24 Primary Care Provider: Fina Moody MD HPI 78-year-old woman admitted by Orthopedic surgery and is status post left total knee arthroplasty. Surgery was unremarkable. Patient has been able to drink without any nausea or vomiting. Patient is hemodynamically stable, vital signs stable. No acute medical complaints at this time. Review of Systems Review of Systems: Denies any recent fever chills or decrease in appetite respiratory denied shortness breath or cough cardiovascular denies chest pain gastrointestinal denies any dysphagia abdominal pain nausea vomiting or diarrhea genitourinary denies any dysuria frequency or hematuria musculoskeletal denies any joint pain or swelling neuropsych denies any weakness or seizures all other systems reviewed are negative PMFSH Medical History Insomnia Peripheral neuropathy A-fib History of ectopic Personal history of COVID-19 (~09/2021) DJD (degenerative joint disease) Osteoarthritis Hiatal hernia GERD (gastroesophageal reflux disease) Pancreatic cyst RLS (restless legs syndrome) LUL (obstructive sleep apnea) Depression Anxiety Elevated cholesterol HTN (hypertension) Carotid stenosis, bilateral Hx of cardiac pacemaker Neuropathy Pulmonary fibrosis CAD (coronary artery disease) Osteomyelitis Surgical History S/P PICC central line placement (~03/2022) Hx of appendectomy History of open reduction and internal fixation (ORIF) procedure Hx of arthroscopic knee surgery Hx of hysterectomy History of esophagogastroduodenoscopy (EGD) Hx of colonoscopy Social History Household Members: Children Household Members Other:: adult son Housing: House Are you a primary care transitions manager to a significant other at home: No Do you presently have visiting nurse or other home services: No Comment: aware of trip hazard Patient Tobacco Use Status: Never used Tobacco Second Hand Smoke Exposure: Yes ( smoked lived together 23 years) Use of substances other than those prescribed or required for medical reasons: No Have you been hit, kicked, punched, or otherwise hurt by someone within the past year? If so, by whom?: No Do you feel safe in your current relationship?: Yes Is there a partner from a previous relationship who is making you feel unsafe now?: No Are you made to feel afraid or neglected: No Spiritual Healthcare Practices: none Gnosticist Healthcare Practices: none Cultural Healthcare Practices: none Are you DNR?: No Advance Directives: No Advance Directives Information Provided: Yes Advance Directives on File: No Do you have a plan to hurt others: No Plan Recently lost weight without trying: No Eating poorly because of decreased appetite: No Nutrition Risks: No Nutritional Risk Patient : No : No Poor oral hygiene: No Meds Allergies Allergy/AdvReac Type Severity Reaction Status Date / Time morphine Allergy Severe Nausea and Verified 03/16/24 09:01 Vomiting Active Medications: Current Medications Acetaminophen (Acetaminophen 325 Mg Tablet) 650 mg PO Q6H PRN PRN Reason: Pain, Mild (Pain Scale 1-3) Apixaban (Apixaban 5 Mg Tablet) 5 mg PO BID [facility] Celecoxib (Celecoxib 200 Mg Capsule) 200 mg PO BID [facility] Doxepin HCl (Doxepin Hcl 10 Mg Capsule) 10 mg PO Q OTHER DAY [facility] Gabapentin (Gabapentin 600 Mg Tablet) 600 mg PO BEDTIME [facility]TTI Gabapentin (Gabapentin 300 Mg Capsule) 300 mg PO BID [facility] Hydrochlorothiazide (Hydrochlorothiazide 25 Mg Tablet) 25 mg PO DAILY MATTI; Protocol Hydromorphone HCl (Hydromorphone Hcl 0.5 Mg/0.5 Ml Syringe) 0.25 mg IVPUSH Q4H PRN; Protocol PRN Reason: Pain, Severe (Pain Scale 7-10) Hydromorphone HCl (Hydromorphone Hcl 0.5 Mg/0.5 Ml Syringe) 0.5 mg IVPUSH Q4H PRN; Protocol PRN Reason: Pain, Severe (Pain Scale 7-10) Lactated Ringer's (Lr) 1,000 mls @ 100 mls/hr IVCONT .Q10H MATTI Last Admin: 03/16/24 09:23 Dose: 100 mls/hr Lactated Ringer's (Lr) 1,000 mls @ 100 mls/hr IVCONT .Q10H [facility] Cefazolin Sodium/Dextrose (Ancef) 2 gm in 50 mls @ 100 mls/hr IV Q8H [facility] Vancomycin HCl 1,500 mg/ (Sodium Chloride) 500 mls @ 333.333 mls/hr IV POSTOP ONE Stop: 03/16/24 22:29 Multivitamins/Vitamin C (Multivitamin Tablet) 1 tab PO DAILY [facility] Non-Formulary Medication (Pirfenidone [Esbriet]) 801 mg PO TID [facility] Non-Formulary Medication (Simvastatin) 20 mg PO BEDTIME [facility] Non-Formulary Medication (Triazolam) 0.25 mg PO Q OTHER DAY [facility] Omeprazole (Omeprazole 20 Mg Capsule.Dr) 20 mg PO BID@0630,1630 [facility] Ondansetron HCl (Ondansetron Hcl 4 Mg/2 Ml Vial) 4 mg IVPUSH Q8H PRN PRN Reason: Nausea and Vomiting Oxycodone HCl (Oxycodone Hcl Immed Release 5 Mg Tablet) 5 mg PO Q4H PRN PRN Reason: Pain, Moderate(Pain Scale 4-6) Oxycodone HCl (Oxycodone Hcl Immed Release 5 Mg Tablet) 10 mg PO Q4H PRN PRN Reason: Pain, Moderate(Pain Scale 4-6) Oxycodone HCl (Oxycodone Hcl Er 10 Mg Tab.Er.12h) 10 mg PO BID [facility] Senna (Sennosides 8.6 Mg Tablet) 17.2 mg PO BEDTIME PRN PRN Reason: Constipation Sodium Chloride (0.9 % Sodium Chloride Flush 3 Ml Syringe) 3 ml IVFLUSH QSHIFT [facility] Home Medications ?Medication ?Instructions ?Recorded ?Confirmed ?Last Taken ?Type gabapentin 300 mg capsule 300 mg PO BID 12/10/22 03/16/24 03/16/24 History hydrochlorothiazide 25 mg tablet 25 mg PO DAILY 12/10/22 03/16/24 03/15/24 History omeprazole 20 mg tablet,delayed 20 mg PO BID 12/10/22 03/16/24 03/16/24 History release pirfenidone 267 mg capsule 801 mg PO TID 12/10/22 03/16/24 03/16/24 History (Esbriet) simvastatin 20 mg tablet 20 mg PO BEDTIME 12/10/22 03/16/24 03/15/24 History doxepin 10 mg capsule 10 mg PO Q OTHER DAY 11/27/23 03/16/24 03/15/24 History triazolam 0.25 mg tablet 0.25 mg PO Q OTHER DAY 11/27/23 03/16/24 03/14/24 History apixaban 5 mg tablet (Eliquis) 5 mg PO BID 03/05/24 03/16/24 03/12/24 History gabapentin 600 mg tablet 600 mg PO BEDTIME 03/05/24 03/16/24 03/15/24 History multivitamin 1 tab PO DAILY 03/05/24 03/16/24 03/15/24 History Physical Exam Vital Signs and Narrative: Vital Signs: Last Vital Signs Temp 98 F 03/16/24 15:00 Pulse 60 03/16/24 15:00 Resp 16 03/16/24 15:00 BP 163/61 H 03/16/24 15:00 Pulse Ox 99 03/16/24 15:00 O2 Del Method Room Air 03/16/24 15:00 O2 Flow Rate 8 03/16/24 13:45 BMI result Body Mass Index 31.6 Appearing in no acute distress head is normocephalic atraumatic eyes pupils are PERRLA sclera is anicteric mouth throat mucous membranes are intact and moist neck is supple no lymphadenopathy, no JVD noted lung sounds are clear to auscultation heart regular rate rhythm, clear S1, S2 positive bowel sounds, abdomen is soft, nontender neuro patient is alert x3, no focal deficits Assessment and Plan (1) Osteoarthritis of left knee: Status: Acute Plan 78-year-old woman admitted by Orthopedic surgery and is status post left total knee arthroplasty Left total knee arthroplasty Management as per surgical team Pain management Hypertension Continue hydrochlorothiazide GERD Continue PPI Coronary artery disease on Eliquis On statin at home DVT prophylaxis with Eliquis Full code Medical consultation complete. Will sign off
[2024-03-16] MEDS: Omeprazole 20 MG CAPSULE.DR PO (16:38)
[2024-03-16] MEDS: ceFAZolin Sodium/Dextrose,Iso 2 GM/50 ML PIGGYBACK IV (16:39)
[2024-03-16] MEDS: oxyCODONE HCl Immed Release 5 MG TABLET PO (16:39)
--- NOTE | 2024-03-16 19:03 | PC.NURSE ---
After admission assessment, this nurse went back into pt room and pt stated that she had a medication from home that is non formulary here ( Pirfenidone) and that she just took a dose. This nurse explained to her that all medications from home must go down to pharmacy to be tagged and dispensed by nurse. Pt refused to have medication go to pharmacy, saying this medication cost thousands of dollars . Charge nurse notified, and Pharmacy notified. Situation was explained to night nurse, who is going to try to get pt to let pharmacy take the medication.
[2024-03-16] MEDS: Celecoxib 200 MG CAPSULE PO (21:23)
[2024-03-16] MEDS: oxyCODONE HCl ER 10 MG TAB.ER.12H PO (21:23)
[2024-03-16] MEDS: Gabapentin 300 MG CAPSULE PO (21:24)
[2024-03-16] MEDS: Gabapentin 600 MG TABLET PO (21:24)
[2024-03-16] MEDS: Apixaban 5 MG TABLET PO (21:24)
[2024-03-17] MEDS: oxyCODONE HCl Immed Release 5 MG TABLET 10 MG PO ×5 (01:17→21:41)
[2024-03-17] MEDS: ceFAZolin Sodium/Dextrose,Iso 2 GM/50 ML PIGGYBACK IV ×3 (01:39→16:19)
[2024-03-17] MEDS: Lactated Ringers 1,000 ML 100 ML IVCONT (03:15)
[2024-03-17 03:39] VITALS: BP 158/69; PULSE 76; RESP 20; TEMP 36.2; O2SAT 94
[2024-03-17] MEDS: Omeprazole 20 MG CAPSULE.DR PO ×2 (05:32→16:16)
[2024-03-17 07:06] LABS: MANUAL DIFF FLAG NO
[2024-03-17 07:25] LABS: Anion Gap 15 (12-20); Basophils Percent Auto 0.3 % (0-2); Blood Urea Nitrogen 16 mg/dL (9-16); Carbon Dioxide 28 mmol/L (22-29); Chloride 107 mmol/L (96-108); Creatinine Clr Calc Pharmacy 48.5; Eosinophils Percent Auto 0.3 % (0-4); Estimated Glomerular Filt Rate 55; Glucose Fasting 102 mg/dL (60-99); Hematocrit 34.9 % (37.0-47.0); Hemoglobin 11.7 g/dl (12.0-16.0); Imm Gran Abs Auto 0.03 X10*3/uL (0.00-0.03); Imm Gran Pct Auto 0.4 % (0.0-0.4); Lymphocytes Absolute Auto 2.3 X10*3/uL (1.2-4.9); Lymphocytes Percent Auto 30.5 % (20-40); Mean Corpuscular HGB Conc 33.5 g/dl (31.0-35.0); Mean Corpuscular Hemoglobin 33.4 pg (27.0-33.0); Mean Corpuscular Volume 99.7 fL (80.0-98.0); Monocytes Absolute Auto 0.4 X10*3/uL (0.1-1.2); Monocytes Percent Auto 5.3 % (2-11); Neutrophils Absolute Auto 4.7 x10*3/uL (2.0-8.3); Neutrophils Percent Auto 63.2 % (45-73); Platelet Count 193 X10*3/uL (160-400); Potassium 3.6 mmol/L (3.3-5.1); Red Cell Distribution Width 13.9 % (11.0-16.0); Sodium 146 mmol/L (135-145); White Blood Count 7.4 X10*3/uL (4.8-10.8)
--- NOTE | 2024-03-17 07:42 | P.PNOP_ITS ---
Subjective Subjective Date of Service: 03/17/24 Interval history: POD 1 s/p LT TKA No overnight events resting in bed, denies cp, palpitations, sob Physical Exam Vital Signs: Vital Signs: Last Vital Signs Temp 97.2 F 03/17/24 03:39 Pulse 76 03/17/24 03:39 Resp 20 03/17/24 03:39 BP 158/69 H 03/17/24 03:39 Pulse Ox 94 03/17/24 03:39 O2 Del Method Room Air 03/17/24 03:39 O2 Flow Rate 8 03/16/24 13:45 BMI result Body Mass Index 31.5 Const: General: cooperative, healthy appearing and no acute distress Resp: Effort & Inspection: normal respiratory effort and able to speak in complete sentences Cardio: Rate: regular rate Peripheral pulses: Peripheral pulses 2+ throughout GI: Palpation (GI): Soft to palpation Skin: General skin exam: no rashes or lesions noted Extrem: Other: bandage clean dry and intact. [place] intact. No erythema or effusion. Calf supple nontender. Neurovascularly intact. Procedures Date of Service Date of Service: 03/17/24 Progress Note: A&P Assessment and plan (1) Status post total left knee replacement: Status: Acute Assessment and Plan: * Continue pain mgmnt * Resume eliquis for dvt ppx * begin PT for LT TKA * Dispo planning-Pending PT eval, pain mgmnt Need for continued inpatient stay: PT Time Spent With Patient Time: Total time managing care of this patient today ____ minutes. Quality Stroke Does the patient have a stroke diagnosis?: No VTE Prior VTE?: No VTE Risk Level:: Surgical - very high VTE Device Contraindication: N/A - Device Ordered VTE Drug Contraindication: N/A - Med Ordered
[2024-03-17 07:52] VITALS: BP 152/69; PULSE 78; RESP 18; TEMP 36.1; O2SAT 95
[2024-03-17 07:55] VITALS: BP 152/69; PULSE 78; O2SAT 95
[2024-03-17] MEDS: Multivitamin TABLET 1 TAB PO (08:25)
[2024-03-17] MEDS: oxyCODONE HCl ER 10 MG TAB.ER.12H PO ×2 (08:25→19:09)
[2024-03-17] MEDS: Apixaban 5 MG TABLET PO ×2 (08:25→19:09)
[2024-03-17] MEDS: Celecoxib 200 MG CAPSULE PO ×2 (08:25→19:09)
[2024-03-17] MEDS: Gabapentin 300 MG CAPSULE PO ×2 (08:25→14:13)
[2024-03-17] MEDS: hydroCHLOROthiazide 25 MG TABLET PO (08:25)
[2024-03-17] MEDS: 0.9 % Sodium Chloride Flush 3 ML SYRINGE IVFLUSH ×2 (08:27→16:57)
--- NOTE | 2024-03-17 11:00 | HO.POSTANES ---
Post Anesthesia Evaluation Post Anesthesia Evaluation Date of Service: 03/16/24 Vital Signs: Vital Signs Temp Pulse Resp BP Pulse Ox O2 Del Method 03/17/24 07:55 78 152/69 H 95 03/17/24 07:52 97.0 F 78 18 152/69 H 95 Room Air 03/17/24 03:39 97.2 F 76 20 158/69 H 94 Room Air Anesthesia: Monitored and Spinal Mental Status: Awake Pain Control: Satisfactory Nausea/Vomiting: None Hydration: Adequate Anesthesia-Related Issues: No Anes. Related Issues
--- NOTE | 2024-03-17 11:56 | MHC.CM.PN ---
pt lives with son has own ride home hvns will follow pt when dcd
[2024-03-17 13:24] VITALS: BP 152/69; PULSE 78; O2SAT 95
[2024-03-17 15:31] VITALS: BP 126/58; PULSE 80; RESP 20; TEMP 36; O2SAT 94
[2024-03-17] MEDS: oxyCODONE HCl Immed Release 5 MG TABLET PO (17:37)
[2024-03-17] MEDS: Atorvastatin Calcium 10 MG TABLET PO (19:09)
[2024-03-17] MEDS: Gabapentin 600 MG TABLET PO (19:09)
[2024-03-17 19:19] VITALS: BP 144/63; PULSE 89; RESP 16; TEMP 35.5; O2SAT 93
--- NOTE | 2024-03-17 20:35 | P.F2F_ITS ---
Service Date Service Date: 03/17/24 Encounter Date of encounter: 03/18/24 Reasons for Services Signs and symptoms assessed: s/p LTKA Pt. is considered homebound due to recent surgery. Unable to drive, poor balance, poor gait mechanics. Reason for physical therapy: home safety and mobility, therapeutic exercises, restore joint function, gait/transfer training and ADL training Homebound: Leaving the home is medically contraindicated at this time without the asist of a device and/or another person due th the listed conditions above and below. Reason homebound: unsteady gait / fall risk, leg weakness, pain with ambulation, pain with transfers, poor balance / fall risk and unable to drive Certification: Based on the above findings, I certify that this patient is confined to the home and needs intermittent [facility] care, physical therapy and/or speech th erapy, or continues to need occupational therapy. The patient is under my care, and I have initiated the establishment of the plan of care. The patient will be followed by a physician who will periodically review the plan of care. Time Spent With Patient Time: Total time managing care of this patient today ____ minutes.
--- NOTE | 2024-03-17 20:36 | P.DS_ITS ---
DS: Providers Provider Date of Service: 03/18/24 Date of admission: 03/16/24 08:27 Primary care physician: Fina Moody MD Consults: 03/16/24 15:22 Consult to Hospitalist Routine Comment: Consulting Provider: Hospitalist Reason For Exam: routine medical management DS: Diagnosis Discharge Diagnosis (1) Status post total left knee replacement: Status: Acute DS: Summary Hospital Course Hospital Course: The patient underwent a successful left total knee arthroplasty, they were transferred to PACU and then to the floor to recover. During their stay, their vitals were stable, afebrile at 96.8. Labs were unremarkable, H/H 10.6/31.5. POD 1 they were started on Aspirin 325mg po bid for DVT ppx, they also received Physical Therapy services twice a day. Prior to discharge, their dressing was clean dry and intact, and the plan was to be discharged home with VNA services. Time Attestation Discharge Coordination Time (in mins): 30 Quality: Safe Use of Opioids Does Pt have an Active Cancer Diagnosis on the Problem List?: No Quality: Stroke Does the patient have a stroke diagnosis?: No Physical Exam Vital Signs: Vital Signs: Last Vital Signs Temp 96 F L 03/17/24 19:19 Pulse 89 03/17/24 19:19 Resp 16 03/17/24 19:19 BP 144/63 H 03/17/24 19:19 Pulse Ox 93 03/17/24 19:19 O2 Del Method Room Air 03/17/24 19:19 O2 Flow Rate 8 03/16/24 13:45 BMI result Body Mass Index 31.5 Const: General: cooperative, healthy appearing and no acute distress Resp: Effort & Inspection: normal respiratory effort and able to speak in complete sentences Cardio: Rate: regular rate Peripheral pulses: Peripheral pulses 2+ throughout GI: Palpation (GI): Soft to palpation Skin: Lesions: no lesions Rashes: no rashes Extrem: Other: left knee dressing is c/d/i. Able to dorsi/plantar flex. Calf is supple and nontender. Sensation intact. Pedal pulse intact. DS: Data Data Completed and Pending Pending studies at discharge: Pending at discharge 03/16/24 12:11 Surgical [PTH] Routine Labs on day of discharge: Laboratory Results - last 24 hr 03/17/24 05:42 WBC 7.4 RBC 3.50 L Hgb 11.7 L Hct 34.9 L MCV 99.7 H MCH 33.4 H MCHC 33.5 RDW 13.9 Plt Count 193 MPV 9.0 L Immature Gran % (Auto) 0.4 Neut % (Auto) 63.2 Lymph % (Auto) 30.5 [place] % (Auto) 5.3 Eos % (Auto) 0.3 Baso % (Auto) 0.3 Lymph # (Auto) 2.3 [place] # (Auto) 0.4 Eos # (Auto) 0.0 Baso # (Auto) 0.0 Abs Immat Gran (auto) 0.03 Absolute Neuts (auto) 4.7 Absolute Nucleated RBC 0.000 Nucleated RBC % (auto) 0.0 Sodium 146 H Potassium 3.6 Chloride 107 Carbon Dioxide 28 Anion Gap 15 BUN 16 Creatinine 0.98 Estim Creat Clear Calc 48.5 Estimated GFR 55 Fasting Glucose 102 H Calcium 9.0 Discharge Plan Discharge Anticipated Discharge Date/Time: 03/18/24 12:31 Patient Disposition: Home Health Service Discharge Diagnosis: s/p [facility] Referrals: Bouchra Wilhelm PA-C [Physician [employer]] - 04/02/24 12:30 pm Discharge Medications: New celecoxib 200 mg Capsule 200 mg PO BID 30 Days Qty: 60 0RF sennosides [Senna Lax] 8.6 mg Tablet 17.2 mg PO BEDTIME PRN (Reason: Constipation) 30 Days Qty: 60 0RF acetaminophen 325 mg Tablet 650 mg PO Q6H PRN (Reason: Pain, Mild (Pain Scale 1-3)) 30 Days Qty: 240 0RF oxycodone 5 mg Tablet 5 mg PO Q4H PRN (Reason: Pain, Moderate(Pain Scale 4-6)) 7 Days Qty: 42 0RF Rx Instructions: Partial Fill upon patient request. Continued (DME) roxy [facility] See Rx Instructions .ROUTE .MEDSUPPLY Qty: 1 0RF Rx Instructions: Folding front wheeled walker gabapentin 600 mg Tablet 600 mg PO BEDTIME Eliquis 5 mg tablet 5 mg PO BID multivitamin Tablet 1 tab PO DAILY simvastatin 20 mg tablet 20 mg PO BEDTIME Esbriet 267 mg capsule 801 mg PO TID gabapentin 300 mg capsule 300 mg PO BID hydrochlorothiazide 25 mg tablet 25 mg PO DAILY omeprazole 20 mg tablet,delayed release (DR/EC) 20 mg PO BID doxepin 10 mg capsule 10 mg PO Q OTHER DAY triazolam 0.25 mg tablet 0.25 mg PO Q OTHER DAY Discharge Orders: Discharge Order (Routine); Ordered 03/18/24 Ordered By: Bouchra Wilhelm Diet: Advance to usual diet Activity on Discharge: Use cane or walker Stand Alone Forms: Patient Portal Discharge page Print Language: Kinyarwanda Care Plan Goals: restore fxn to the left knee Health Concerns: none Plan of Treatment: Physical Therapy for ROM 0-120, quad strength, gait training. Use walker for ambulation Limit stair climbing, No shower, No tub bath, No driving Continue anticoagulant x 6 weeks Keep Aquacel dressing clean, dry and intact. Follow up with orthopedics in 2 weeks Assessment: stable for d/c
[2024-03-17] MEDS: Acetaminophen 325 MG TABLET 650 MG PO (21:41)
[2024-03-17] MEDS: Melatonin 3 MG TABLET 6 MG PO (21:43)
[2024-03-18] VITALS (9 sets, daily range): BP systolic 77–146; BP diastolic 40–67; PULSE 82–89; RESP 16–18; TEMP 35.5–36.4; O2SAT 94–98
[2024-03-18] MEDS: ceFAZolin Sodium/Dextrose,Iso 2 GM/50 ML PIGGYBACK IV ×2 (00:37→09:14)
[2024-03-18] MEDS: 0.9 % Sodium Chloride Flush 3 ML SYRINGE IVFLUSH ×2 (00:38→09:15)
[2024-03-18 05:49] LABS: MANUAL DIFF FLAG NO
[2024-03-18 05:56] LABS: Basophils Percent Auto 0.1 % (0-2); Eosinophils Percent Auto 0.6 % (0-4); Hematocrit 31.5 % (37.0-47.0); Hemoglobin 10.6 g/dl (12.0-16.0); Imm Gran Abs Auto 0.04 X10*3/uL (0.00-0.03); Imm Gran Pct Auto 0.6 % (0.0-0.4); Lymphocytes Absolute Auto 1.7 X10*3/uL (1.2-4.9); Lymphocytes Percent Auto 24.5 % (20-40); Mean Corpuscular HGB Conc 33.7 g/dl (31.0-35.0); Mean Corpuscular Hemoglobin 33.7 pg (27.0-33.0); Mean Platelet Volume 9.1 fL (9.4-12.3); Monocytes Absolute Auto 0.5 X10*3/uL (0.1-1.2); Neutrophils Absolute Auto 4.6 x10*3/uL (2.0-8.3); Neutrophils Percent Auto 67.2 % (45-73); Platelet Count 165 X10*3/uL (160-400); Red Blood Count 3.15 X10*6/uL (4.20-5.50); Red Cell Distribution Width 14.1 % (11.0-16.0); White Blood Count 6.8 X10*3/uL (4.8-10.8)
[2024-03-18] MEDS: Omeprazole 20 MG CAPSULE.DR PO ×2 (05:58→16:36)
[2024-03-18] MEDS: oxyCODONE HCl Immed Release 5 MG TABLET 10 MG PO ×3 (05:58→16:36)
[2024-03-18 06:12] LABS: Anion Gap 14 (12-20); Blood Urea Nitrogen 14 mg/dL (9-16); Calcium 8.9 mg/dL (8.4-10.2); Carbon Dioxide 27 mmol/L (22-29); Chloride 103 mmol/L (96-108); Creatinine Clr Calc Pharmacy 55.3; Estimated Glomerular Filt Rate > 60; Glucose Fasting 116 mg/dL (60-99); Potassium 3.3 mmol/L (3.3-5.1); Sodium 141 mmol/L (135-145)
--- NOTE | 2024-03-18 08:44 | MHC.CM.PN ---
Addendum entered by Sarah Wilkinson 03/18/24 14:07: Patient is discharged today. Addendum entered by Sarah Wilkinson 03/18/24 10:25: Patient became dizzy with ambulation this morning. She will be re-assessed for discharge later this afternoon. DC on hold at this point in time. Original Note: IMM 03/17/24 patient is discharged to home today. [facility] will provide home services. All dc info has been sent to the agency. Patients son will provide transportation home.
[2024-03-18] MEDS: Apixaban 5 MG TABLET PO (09:13)
[2024-03-18] MEDS: oxyCODONE HCl ER 10 MG TAB.ER.12H PO (09:13)
[2024-03-18] MEDS: hydroCHLOROthiazide 25 MG TABLET PO (09:14)
[2024-03-18] MEDS: Gabapentin 300 MG CAPSULE PO ×2 (09:14→12:57)
[2024-03-18] MEDS: Multivitamin TABLET 1 TAB PO (09:14)
[2024-03-18] MEDS: Celecoxib 200 MG CAPSULE PO (09:15)
--- NOTE | 2024-03-18 10:10 | PM.EVENT ---
Event Note Date of Service: 03/18/24 Event Note: Patient participated with physical therapy this morning and while attempting to do stairs she felt likght headed and faint. Will reassess after her afternoon session. Time Spent With Patient Time: Total time managing care of this patient today ____ minutes.
--- NOTE | 2024-03-18 10:25 | PC.NURSE ---
904- While working with PT, walking and completing stairs, patient became dizzy and felt like she was going to pass out. Assisted back to room and sitting in recliner. BP 77/40. After sitting for a few minutes symptoms resolved. Manual BP checked 120/48. Per patient had severe pain while ambulating/stairs. Pain has improved while in chair. Bouchra BLANCO made aware. Per MD will continue to monitor throughout day and will determine plan for discharge once afternoon PT is completed. Patient made aware of plan and is agreeable. All needs met at this time.
== END 2024-03-18 16:50 | disposition home health service (06) | DRG 470 ==
LOC: HO.SSSA 08:32 → HO.S3 13:19
PROVIDERS: Admitting Provider Physician Assistant; PCP Internal Medicine; Visit Provider Orthopaedic Surgery
PROC: 0SRD0J9 Replacement of Left Knee Joint with Synthetic Substitute, Cemented, Open Approach (ICD-10-PCS; CPT 27447; principal; 2024-03-16 10:30)
DX: M17.12 Unilateral primary osteoarthritis, left knee (principal); Z95.0 Presence of cardiac pacemaker; G89.18 Other acute postprocedural pain; I10 Essential (primary) hypertension; K21.9 Gastro-esophageal reflux disease without esophagitis; I25.10 Atherosclerotic heart disease of native coronary artery without angina pectoris; Z79.01 Long term (current) use of anticoagulants; Z79.899 Other long term (current) drug therapy
CPT/HCPCS: 27447; 36415; 80048; 85025; 86850; 86900; 86901; 87640; 87641; 88305; 88311; 97110; 97116; 97162; C1776; J0131; J0665; J0690; J1100; J2250; J2371; J2704; J3370; J3371; J7120

== ENCOUNTER → 2024-03-16 08:27 | Outpatient (BNV) | payer MEDICARE, SELFPAY | PROVIDERS: Admitting Provider Physician Assistant; PCP Internal Medicine; Visit Provider Nurse Practitioner Acute Care | DX: I10 Essential (primary) hypertension (principal); K21.9 Gastro-esophageal reflux disease without esophagitis; M17.12 Unilateral primary osteoarthritis, left knee | CPT/HCPCS: 99222 ==

== ENCOUNTER → 2024-03-16 08:27 | Outpatient (BNV) | payer MEDICARE, SELFPAY | PROVIDERS: Admitting Provider Physician Assistant; PCP Internal Medicine; Visit Provider Orthopaedic Surgery | DX: Z47.1 Aftercare following joint replacement surgery (principal); Z96.652 Presence of left artificial knee joint | CPT/HCPCS: 27447; 99024; 99499; G0180 ==

== ENCOUNTER 2024-04-02 08:47 | Outpatient (REF) | payer MEDICARE, SELFPAY ==
--- NOTE | ~2024-04-02 | XR_ITS ---
EXAMINATION: XR KNEE, LEFT Right knee limited CLINICAL INFORMATION: Pain in unspecified knee COMPARISON: X-rays of the left knee November 2023 TECHNIQUE: AP upright of both knees. Additional lateral and patellofemoral view of left knee FINDINGS: Left knee: There is a total knee arthroplasty in place. Overall improved alignment of the knee joint compared with the preoperative exam The components are in the usual position There is no periprosthetic fracture. Lucency distal to the bone cement surrounding the tibial component likely postoperative related Trace joint effusion. Skin suyapa in place compatible with postoperative state. Arterial calcification. The surrounding soft tissues are normal. Limited AP upright right knee: Bone and visualized joints unremarkable. XR/XR knee LT 3V IMPRESSION: Left total knee arthroplasty without complication by x-ray. Limited right knee: Unremarkable
== END 2024-04-02 08:48 | disposition home or self-care (01) ==
LOC: HO.HOSX 08:47
PROVIDERS: Visit Provider Physician Assistant
DX: Z47.1 Aftercare following joint replacement surgery (principal); Z96.652 Presence of left artificial knee joint
CPT/HCPCS: 73562; 99212

== ENCOUNTER 2024-04-02 12:19 | Outpatient (AMB) | payer MEDICARE, SELFPAY ==
--- NOTE | 2024-04-02 12:32 | A.OFFVIS_ITS ---
Intake Visit Reasons: PO left TKA 03/16/24 with Intake Note: Mundo is a 78 year old female who presents today for a post op appointment s/p left TKA 03/16/24 with . Patient reports she is doing good, however she is feeling sore. Patient expressed wanting to go to [place] for PT on [facility]. Allergies morphine Allergy (Severe, Verified 04/02/24 12:33) Nausea and Vomiting HPI HPI PO left TKA 03/16/[address]: Details: 78-year-old female who presents in the office today 17 days status post left total knee arthroplasty, which was performed on 03/16/[address] Mendoza. While in the office today the patient reports she is doing good. She confirms soreness. Patient would like to attend [place] for physical therapy on [facility]. [facility] Medical History Insomnia Peripheral neuropathy A-fib History of ectopic Personal history of COVID-19 (~09/2021) DJD (degenerative joint disease) Osteoarthritis Hiatal hernia GERD (gastroesophageal reflux disease) Pancreatic cyst RLS (restless legs syndrome) LUL (obstructive sleep apnea) Depression Anxiety Elevated cholesterol HTN (hypertension) Carotid stenosis, bilateral Hx of cardiac pacemaker Neuropathy Pulmonary fibrosis CAD (coronary artery disease) Osteomyelitis Surgical History S/P PICC central line placement (~03/2022) Hx of appendectomy History of open reduction and internal fixation (ORIF) procedure Hx of arthroscopic knee surgery Hx of hysterectomy History of esophagogastroduodenoscopy (EGD) Hx of colonoscopy Social History Household Members: Children Household Members Other:: adult son Housing: House Are you a primary animal care worker to a significant other at home: No Do you presently have visiting nurse or other home services: No Comment: aware of trip hazard Patient Tobacco Use Status: Never used Tobacco Second Hand Smoke Exposure: Yes ( smoked lived together 23 years) service: No Review of Systems Const All systems reviewed & are unremarkable except as noted in HPI and below Physical Exam Const General: cooperative, healthy appearing and no acute distress Resp Effort & Inspection: normal respiratory effort and able to speak in complete sentences Cardio Rate: regular rate Peripheral pulses: Peripheral pulses 2+ throughout GI Palpation (GI): Soft to palpation Skin Lesions: no lesions Rashes: no rashes Extrem Other: Left knee: Incision site is clean, dry, and intact. Jose intact. No surrounding erythema, drainage, or joint effusion. No signs of infection. ROM is 0-110 degrees. NVI. Assessment & Plan Assessment & Plan (1) Status post total left knee replacement: Onset Date: ~03/16/24 Comment: Dr. Mendoza Code(s): Z96.652 - Presence of left artificial knee joint Category: Surgical Plan Ms. Vasquez is a 78-year-old female who presents in the office today 17 days status post left total knee arthroplasty, which was performed on 03/16/[address] Mendoza. While in the office today the patient reports she is doing good. She confirms soreness. Patient would like to attend [place] for physical therapy on [facility]. [place] were removed and steri-stripes were applied. An order for physical therapy was placed in the office today. I sent a prescription for an antibiotic prophylactically for possible dental work in the future. However, the patient was educated they should not have any major dental work for the first 3 months post op after a left total knee arthroplasty. Follow up will be in [address] Mendoza, or sooner if needed. X-rays of the left knee which were obtained while in the office today and were reviewed by me, Bouchra Wilhelm PA-C, revealed intact orthopedic hardware with proper alignment. Orders: Orders XR knee LT 3V Today M25.569 - Pain in unspecified knee Medications: New amoxicillin 2,000 mg (4 x 500 mg) PO ONCE 4 tabs 0RF take 4 tabs by mouth 1 hour prior to dental ppx 1 day Patient Instructions: Scribed by Cyndy Pa medical apparatus model maker, for Bouchra Wilhelm PA-C on 04/02/2024 at 12:22 pm, EST. Coding Level of Care Code Global (36647) Diagnoses Status post total left knee replacement Z96.652
== END 2024-04-02 12:55 | disposition home or self-care (01) ==
PROVIDERS: PCP Internal Medicine; Visit Provider Physician Assistant
DX: Z96.652 Presence of left artificial knee joint (principal)
CPT/HCPCS: 99024

== ENCOUNTER 2024-04-23 11:39 | Outpatient (AMB) | payer MEDICARE, SELFPAY ==
--- NOTE | 2024-04-23 11:49 | A.OFFVIS_ITS ---
Intake Visit Reasons: 6 wk PO left TKA 03/16/[address] Byrne Note: Mundo is a 78 year old female who presents to the office today for a 6 week PO left TKA 03/16/24. She states she is feeling well and the pain is subsiding. She is still in PT and states that it helpful. She denies any fevers or chills. She has no longer taking narcotics for her discomfort. She has not walking with an assistive device. Allergies morphine Allergy (Severe, Verified 04/23/24 11:50) Nausea and Vomiting Medication List - Last Reconciled 04/23/24 by Inocente Mendoza MD acetaminophen 650 mg (2 x 325 mg) PO Q6H PRN 30 days amoxicillin 2,000 mg (4 x 500 mg) PO ONCE 1 day apixaban (Eliquis) 5 mg PO BID doxepin 10 mg PO Q OTHER DAY gabapentin 600 mg PO BEDTIME gabapentin 300 mg PO BID hydrochlorothiazide 25 mg PO DAILY multivitamin 1 tab PO DAILY omeprazole 20 mg PO BID pirfenidone (Esbriet) 801 mg PO TID sennosides (Senna Lax) 17.2 mg (2 x 8.6 mg) PO BEDTIME PRN 30 days simvastatin 20 mg PO BEDTIME triazolam 0.25 mg PO Q OTHER DAY walker Folding front wheeled walker [facility] Medical History Insomnia Peripheral neuropathy A-fib History of ectopic Personal history of COVID-19 (~09/2021) DJD (degenerative joint disease) Osteoarthritis Hiatal hernia GERD (gastroesophageal reflux disease) Pancreatic cyst RLS (restless legs syndrome) LUL (obstructive sleep apnea) Depression Anxiety Elevated cholesterol HTN (hypertension) Carotid stenosis, bilateral Hx of cardiac pacemaker Neuropathy Pulmonary fibrosis CAD (coronary artery disease) Osteomyelitis Surgical History S/P PICC central line placement (~03/2022) Hx of appendectomy History of open reduction and internal fixation (ORIF) procedure Hx of arthroscopic knee surgery Hx of hysterectomy History of esophagogastroduodenoscopy (EGD) Hx of colonoscopy Social History Household Members: Children Household Members Other:: adult son Housing: House Are you a primary health care social worker to a significant other at home: No Do you presently have visiting nurse or other home services: No Comment: aware of trip hazard Patient Tobacco Use Status: Never used Tobacco Second Hand Smoke Exposure: Yes ( smoked lived together 23 years) service: No Physical Exam Extrem Other: Left lower extremity examination shows that the surgical incision is well healed, no erythema, full active extension and flexion to 120 degrees, her patella tracks well Assessment & Plan Assessment & Plan (1) Left knee pain: Code(s): M25.562 - Pain in left knee Category: Medical Plan Ms. Vasquez continues to do very well after undergoing left total knee replacement surgery on 03/16/2024. She will continue going to formal physical therapy for now. She will gradually transition to a home exercise program. She does know to take antibiotics before any dental work. She will contact me prior to her follow-up appointment in 2 months should any questions or concerns arise. Feel free to call me at any time should questions regarding her orthopedic management arise. Coding Level of Care Code Global (80379) Diagnoses Left knee pain M25.562
== END 2024-04-23 12:32 | disposition home or self-care (01) ==
PROVIDERS: PCP Internal Medicine; Visit Provider Orthopaedic Surgery
DX: M25.562 Pain in left knee (principal)
CPT/HCPCS: 99024

== ENCOUNTER → 2024-04-23 11:39 | Outpatient (BNVA) | payer MEDICARE, SELFPAY | PROVIDERS: PCP Internal Medicine; Visit Provider Orthopaedic Surgery | DX: M25.562 Pain in left knee (principal) | CPT/HCPCS: 99212 ==

== ENCOUNTER 2024-05-06 11:00 | Outpatient (RCR) | payer MEDICARE, SELFPAY ==
[2024-04-09 13:11] VITALS: BP 124/78; PULSE 93; O2SAT 98
--- NOTE | 2024-04-13 11:55 | MHC.PT.OD ---
[facility] [place] Office [place] Office [place] Office [address] Miri Trevino [address] [phone] F: [phone] F: [phone] F: [phone] F: [phone] Physical Therapy Daily Note Diagnosis: L knee TKA DOS: PT eval and treat 04/02/24 Status post presence of left artificial knee joint signed by 04/02/24 Bouchra Wilhelm PA-C Surgeon Dr. Mendoza [facility] Date of Surgery: 03/16/24 Date of Evaluation: 04/09/24 Date of Treatment: 04/13/24 Treatments to Date: 2 Cancellations to Date: No Shows to Date: Authorized Visits: 1 Insurance End Date: Precautions/ Contraindications:cardiac, pacemaker, lung compromise pulmonary fibrosis, hx osteomyelitis R great toe with wound care treatment 2022 Subjective: Pt. reports that she has slight pain today. She states she had a tough time yesterday likely to overdoing it on Saturday. She notes that she took pain medication before session today. She notes she is feeling overwhelmed w/ all of her upcoming medical appointments. Pain Score and Location: 2 Ant knee Objective Flowsheet: Tests & Measures AAROM at end of session: -1 to 117. Extension measured after icing, flexion measured following AAROM heel slides. Exercises Scifit bike seat 8 2.5 min, pt having dyspnea (hx of pulmonary fibrosis) Had patient stop and checked levels: O2 92, HR: 95 bpm. Had patient stop. Encouraged and educated in pursed lip breathing following rest (~2 min): O2: 100. No dizziness, no change in color to skin observed. Pt. stated she felt better following rest. DC bike after that. Educated pt. on pacing herself and regulating breathing during ADLs. Cues for education of PLB with activity. -Quad set L. 12 reps 5 sec hold w/ towel roll, 10 reps w/o towel roll -SAQ L 20 reps w/ bolster under both knees -SLR L 10 reps. Went to midrange height. Cues for bending R leg -Sidelying B hip abduction X10 reps EA. Cues for keeping hips aligned and legs straight. -seated hamstring stretch and gastroc stretch w/ strap L 3X20 sec holds. Attempt on R but pt noted she didn't feel much of a stretch. Educated pt on importance of breathing in through nose and out through mouth. Importance of pacing herself during activity and knowing when to stop when feeling short of breath. ADjustment of std cane (lowered one level down) to improve gait mechanics. Pt educated to refrain from walking in her backyard due to report of mole/vole holes- educated in risk of falling. Pt educated to use std cane in the home to reduce risk of falls (expresses hx buckling in her knee at times). Modalities Ice ant/post knee. Pt supine w/ towel roll under ankle. 5 min. Skin intact pre post icing. Assessment: Added seated hamstring and gastroc stretch to HEP. Pt. walked in using cane. -1 to [address] Thrasher wants her to get a CT of her lungs but she is hesitant because she feels overwhelmed with all of her medical appts (also states she has a friend who is staying with her from [place] who is recovering from surgery). Pt states Pt. was educated the importance of following through w/ MD recommendations. Steri- strips 4 remain inferior aspect of incision, top half of knee has paper tape covering incisions. Pt educated to allow steri-strips to fall off. Concern noted for incision being covered by paper tape (patient applied during [facility] care ). Therapist called [facility] ortho and spoke with Emily informed her that patient applied paper tape over her steri-strips and concern that tape is now adhered knee incision (not seeing ortho until 04/23/24 and would likely benefit from an earlier appt to address incision/tape/steri-strip situation. Pt educated to refrain from pulling off tape or steri-strips. Therapist not comfortable with removal due to concern for tape being stuck to incision. Pt to see ortho on 04/23/24 for follow up. PT Plan: 2x/week x 6 weeks Short Term Goals: 1. AROM L knee flexion 120 (IR: IR: 116). 2. AROM L knee extension 0 (IR: -6). 3. Pt will demonstrate sit<>stand on first attempt with min UE of 1 extremity. (IR: Heavy reliance on UE to pull/push). 4. Pt will strength of quad to good during SLR. (IR: fair initial assessment). Roller Mill Operator Goals: 1. AROM L knee strength to 5/5. 2. Pt will ambulate community distances with use of std cane >500ft. 3. Pt will get up and down from the floor with good evidence of floor recovery education. 4. Pt will demonstrate good dynamic balance to good when negotiating stairs reciprocally. Electronically signed by: Vicky Morse, PT, DPT
--- NOTE | 2024-04-13 11:55 | MHC.PT.OD ---
[facility] [place] Office [place] Office [place] Office [address] Miri Trevino [address] [phone] F: [phone] F: [phone] F: [phone] F: [phone] Physical Therapy Daily Note Diagnosis: L knee TKA DOS: PT eval and treat 04/02/24 Status post presence of left artificial knee joint signed by 04/02/24 Bouchra Wilhelm PA-C Surgeon Dr. Mendoza [facility] Date of Surgery: 03/16/24 Date of Evaluation: 04/09/24 Date of Treatment: 04/13/24 Treatments to Date: 2 Cancellations to Date: No Shows to Date: Authorized Visits: 1 Insurance End Date: Precautions/ Contraindications:cardiac, pacemaker, lung compromise pulmonary fibrosis, hx osteomyelitis R great toe with wound care treatment 2022 Subjective: Pt. reports that she has slight pain today. She states she had a tough time yesterday likely to overdoing it on Saturday. She notes that she took pain medication before session today. She notes she is feeling overwhelmed w/ all of her upcoming medical appointments. Pain Score and Location: 2 Ant knee Objective Flowsheet: Tests & Measures AAROM at end of session: -1 to 117. Extension measured after icing, flexion measured following AAROM heel slides. Exercises Scifit bike seat 8 2.5 min, pt having dyspnea (hx of pulmonary fibrosis) Had patient stop and checked levels: O2 92, HR: 95 bpm. Had patient stop. Encouraged and educated in pursed lip breathing following rest (~2 min): O2: 100. No dizziness, no change in color to skin observed. Pt. stated she felt better following rest. DC bike after that. Educated pt. on pacing herself and regulating breathing during ADLs. Cues for education of PLB with activity. -Quad set L. 12 reps 5 sec hold w/ towel roll, 10 reps w/o towel roll -SAQ L 20 reps w/ bolster under both knees -SLR L 10 reps. Went to midrange height. Cues for bending R leg -Sidelying B hip abduction X10 reps EA. Cues for keeping hips aligned and legs straight. -seated hamstring stretch and gastroc stretch w/ strap L 3X20 sec holds. Attempt on R but pt noted she didn't feel much of a stretch. Educated pt on importance of breathing in through nose and out through mouth. Importance of pacing herself during activity and knowing when to stop when feeling short of breath. ADjustment of std cane (lowered one level down) to improve gait mechanics. Pt educated to refrain from walking in her backyard due to report of mole/vole holes- educated in risk of falling. Pt educated to use std cane in the home to reduce risk of falls (expresses hx buckling in her knee at times). Modalities Ice ant/post knee. Pt supine w/ towel roll under ankle. 5 min. Skin intact pre post icing. Assessment: Added seated hamstring and gastroc stretch to HEP. Pt. walked in using cane. -1 to [address] Thrasher wants her to get a CT of her lungs but she is hesitant because she feels overwhelmed with all of her medical appts (also states she has a friend who is staying with her from [place] who is recovering from surgery). Pt states Pt. was educated the importance of following through w/ MD recommendations. Steri- strips 4 remain inferior aspect of incision, top half of knee has paper tape covering incisions. Pt educated to allow steri-strips to fall off. Concern noted for incision being covered by paper tape (patient applied during [facility] care ). Therapist called [facility] and spoke with Emily informed her that patient applied paper tape over her steri-strips and concern that tape is now adhered knee incision (not seeing ortho until 04/23/24 and would likely benefit from an earlier appt to address incision/tape/steri-strip situation. Pt educated to refrain from pulling off tape or steri-strips. Therapist not comfortable with removal due to concern for tape being stuck to incision. Pt to see ortho on 04/23/24 for follow up. PT Plan: 2x/week x 6 weeks Short Term Goals: 1. AROM L knee flexion 120 (IR: IR: 116). 2. AROM L knee extension 0 (IR: -6). 3. Pt will demonstrate sit<>stand on first attempt with min UE of 1 extremity. (IR: Heavy reliance on UE to pull/push). 4. Pt will strength of quad to good during SLR. (IR: fair initial assessment). Metal Smelter Goals: 1. AROM L knee strength to 5/5. 2. Pt will ambulate community distances with use of std cane >500ft. 3. Pt will get up and down from the floor with good evidence of floor recovery education. 4. Pt will demonstrate good dynamic balance to good when negotiating stairs reciprocally. Electronically signed by: Vicky Morse, PT, DPT
--- NOTE | 2024-04-13 11:56 | MHC.PT.OD ---
[facility] [place] Office [place] Office [place] Office [address] Miri Trevino [address] [phone] F: [phone] F: [phone] F: [phone] F: [phone] Physical Therapy Daily Note Diagnosis: L knee TKA DOS: PT eval and treat 04/02/24 Status post presence of left artificial knee joint signed by 04/02/24 Bouchra Wilhelm PA-C Surgeon Dr. Mendoza [facility] Date of Surgery: 03/16/24 Date of Evaluation: 04/09/24 Date of Treatment: 04/13/24 Treatments to Date: 2 Cancellations to Date: No Shows to Date: Authorized Visits: 1 Insurance End Date: Precautions/ Contraindications:cardiac, pacemaker, lung compromise pulmonary fibrosis, hx osteomyelitis R great toe with wound care treatment 2022 Subjective: Pt. reports that she has slight pain today. She states she had a tough time yesterday likely to overdoing it on Saturday. She notes that she took pain medication before session today. She notes she is feeling overwhelmed w/ all of her upcoming medical appointments. Pain Score and Location: 2 Ant knee Objective Flowsheet: Tests & Measures AAROM at end of session: -1 to 117. Extension measured after icing, flexion measured following AAROM heel slides. Exercises Scifit bike seat 8 2.5 min, pt having dyspnea (hx of pulmonary fibrosis) Had patient stop and checked levels: O2 92, HR: 95 bpm. Had patient stop. Encouraged and educated in pursed lip breathing following rest (~2 min): O2: 100. No dizziness, no change in color to skin observed. Pt. stated she felt better following rest. DC bike after that. Educated pt. on pacing herself and regulating breathing during ADLs. Cues for education of PLB with activity. -Quad set L. 12 reps 5 sec hold w/ towel roll, 10 reps w/o towel roll -SAQ L 20 reps w/ bolster under both knees -SLR L 10 reps. Went to midrange height. Cues for bending R leg -Sidelying B hip abduction X10 reps EA. Cues for keeping hips aligned and legs straight. -seated hamstring stretch and gastroc stretch w/ strap L 3X20 sec holds. Attempt on R but pt noted she didn't feel much of a stretch. Educated pt on importance of breathing in through nose and out through mouth. Importance of pacing herself during activity and knowing when to stop when feeling short of breath. ADjustment of std cane (lowered one level down) to improve gait mechanics. Pt educated to refrain from walking in her backyard due to report of mole/vole holes- educated in risk of falling. Pt educated to use std cane in the home to reduce risk of falls (expresses hx buckling in her knee at times). Modalities Ice ant/post knee. Pt supine w/ towel roll under ankle. 5 min. Skin intact pre post icing. Assessment: Added seated hamstring and gastroc stretch to HEP. Pt. walked in using cane. -1 to [address] Thrasher wants her to get a CT of her lungs but she is hesitant because she feels overwhelmed with all of her medical appts (also states she has a friend who is staying with her from [place] who is recovering from surgery). Pt states Pt. was educated the importance of following through w/ MD recommendations. Steri- strips 4 remain inferior aspect of incision, top half of knee has paper tape covering incisions. Pt educated to allow steri-strips to fall off. Concern noted for incision being covered by paper tape (patient applied during [facility]NA care ). Therapist called [facility] and spoke with Emily informed her that patient applied paper tape over her steri-strips and concern that tape is now adhered knee incision (not seeing ortho until 04/23/24 and would likely benefit from an earlier appt to address incision/tape/steri-strip situation. Pt educated to refrain from pulling off tape or steri-strips. Therapist not comfortable with removal due to concern for tape being stuck to incision. Pt to see ortho on 04/23/24 for follow up. PT Plan: 2x/week x 6 weeks Short Term Goals: 1. AROM L knee flexion 120 (IR: IR: 116). 2. AROM L knee extension 0 (IR: -6). 3. Pt will demonstrate sit<>stand on first attempt with min UE of 1 extremity. (IR: Heavy reliance on UE to pull/push). 4. Pt will strength of quad to good during SLR. (IR: fair initial assessment). Medicaid Business Analyst Goals: 1. AROM L knee strength to 5/5. 2. Pt will ambulate community distances with use of std cane >500ft. 3. Pt will get up and down from the floor with good evidence of floor recovery education. 4. Pt will demonstrate good dynamic balance to good when negotiating stairs reciprocally. Electronically signed by: Vicky Morse, PT, DPT
--- NOTE | 2024-04-13 11:59 | MHC.PT.OD ---
[facility] [place] Office [place] Office [address] Miri Trevino [address] [phone] F: [phone] F: [phone] F: [phone] F: [phone] Physical Therapy Daily Note Diagnosis: L knee TKA DOS: PT eval and treat 04/02/24 Status post presence of left artificial knee joint signed by 04/02/24 Bouchra Wilhelm PA-C Surgeon Dr. Mendoza [facility] Date of Surgery: 03/16/24 Date of Evaluation: 04/09/24 Date of Treatment: 04/13/24 Treatments to Date: 2 Cancellations to Date: No Shows to Date: Authorized Visits: 1 Insurance End Date: Precautions/ Contraindications:cardiac, pacemaker, lung compromise pulmonary fibrosis, hx osteomyelitis R great toe with wound care treatment 2022 Subjective: Pt. reports that she has slight pain today. She states she had a tough time yesterday likely to overdoing it on Saturday. She notes that she took pain medication before session today. She notes she is feeling overwhelmed w/ all of her upcoming medical appointments. Pain Score and Location: 2 Ant knee Objective Flowsheet: Tests & Measures AAROM at end of session: -1 to 117. Extension measured after icing, flexion measured following AAROM heel slides. Exercises Scifit bike seat 8 2.5 min, pt having dyspnea (hx of pulmonary fibrosis) Had patient stop and checked levels: O2 92, HR: 95 bpm. Had patient stop. Encouraged and educated in pursed lip breathing following rest (~2 min): O2: 100. No dizziness, no change in color to skin observed. Pt. stated she felt better following rest. DC bike after that. Educated pt. on pacing herself and regulating breathing during ADLs. Cues for education of PLB with activity. -Quad set L. 12 reps 5 sec hold w/ towel roll, 10 reps w/o towel roll -SAQ L 20 reps w/ bolster under both knees -SLR L 10 reps. Went to midrange height. Cues for bending R leg -Sidelying B hip abduction X10 reps EA. Cues for keeping hips aligned and legs straight. -seated hamstring stretch and gastroc stretch w/ strap L 3X20 sec holds. Attempt on R but pt noted she didn't feel much of a stretch. Educated pt on importance of breathing in through nose and out through mouth. Importance of pacing herself during activity and knowing when to stop when feeling short of breath. ADjustment of std cane (lowered one level down) to improve gait mechanics. Pt educated to refrain from walking in her backyard due to report of mole/vole holes- educated in risk of falling. Pt educated to use std cane in the home to reduce risk of falls (expresses hx buckling in her knee at times). Modalities Ice ant/post knee. Pt supine w/ towel roll under ankle. 5 min. Skin intact pre post icing. Assessment: Added seated hamstring and gastroc stretch to HEP. Pt. walked in using cane. -1 to [address] Thrasher wants her to get a CT of her lungs but she is hesitant because she feels overwhelmed with all of her medical appts (also states she has a friend who is staying with her from [place] who is recovering from surgery). Pt states Pt. was educated the importance of following through w/ MD recommendations. Steri- strips 4 remain inferior aspect of incision, top half of knee has paper tape covering incisions. Pt educated to allow steri-strips to fall off. Concern noted for incision being covered by paper tape (patient applied during [facility] care ). Therapist called [facility] and spoke with Emily informed her that patient applied paper tape over her steri-strips and concern that tape is now adhered knee incision (not seeing ortho until 04/23/24 and would likely benefit from an earlier appt to address incision/tape/steri-strip situation. Pt educated to refrain from pulling off tape or steri-strips. Therapist not comfortable with removal due to concern for tape being stuck to incision. Pt to see ortho on 04/23/24 for follow up. PT Plan: 2x/week x 6 weeks Short Term Goals: 1. AROM L knee flexion 120 (IR: IR: 116). 2. AROM L knee extension 0 (IR: -6). 3. Pt will demonstrate sit<>stand on first attempt with min UE of 1 extremity. (IR: Heavy reliance on UE to pull/push). 4. Pt will strength of quad to good during SLR. (IR: fair initial assessment). 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 AROM L knee strength to 5/5. 2. Pt will ambulate community distances with use of std cane >500ft. 3. Pt will get up and down from the floor with good evidence of floor recovery education. 4. Pt will demonstrate good dynamic balance to good when negotiating stairs reciprocally. Electronically signed by: Vicky Morse, PT, DPT
--- NOTE | 2024-05-06 11:57 | MHC.PT.DC ---
[facility] [place] Office [place] Office [place] Office [address] Miri Trevino [address] [phone] F: [phone] F: [phone] F: [phone] F: [phone] Physical Therapy Discharge Report Diagnosis: L knee TKA DOS: PT eval and treat 04/02/24 Status post presence of left artificial knee joint signed by 04/02/24 Bouchra Wilhelm PA-C Surgeon Dr. Mendoza [facility] Date of Surgery: 03/16/24 Date of Evaluation: 04/09/24 Date of Discharge: Treatments to Date: 9 Cancellations to Date: No Shows to Date: Discharge Status: Discharge Summary: DC pt. to HEP and pulmonary rehab. Pt. demonstrated she was able to independently perform her home exercises. Currently most of her limitations are due to her pulmonary fibrosis diagnosis which will be addressed at pulmonary rehab. She has a follow up visit with ortho in June 2024. Electronically signed by: Please sign and return to therapist. Thank you for your referral.
--- NOTE | 2024-05-06 12:00 | MHC.PT.DC ---
[facility] [place] Office [place] Office [place] Office [address] Miri Trevino [address] [phone] F: [phone] F: [phone] F: [phone] F: [phone] Physical Therapy Discharge Report Diagnosis: L knee TKA DOS: PT eval and treat 04/02/24 Status post presence of left artificial knee joint signed by 04/02/24 Bouchra Wilhelm PA-C Surgeon Dr. Mendoza [facility] Orthopedics Date of Surgery: 03/16/24 Date of Evaluation: 04/09/24 Date of Discharge: 05/06/24 Treatments to Date: 9 Cancellations to Date: No Shows to Date: Discharge Status: Achieved Goals Improved Function Independent with HEP Discharge Summary: PER ASSESSMENT LAST PT APPT DC pt. to HEP and pulmonary rehab. Pt. demonstrated she was able to independently perform her home exercises. Currently most of her limitations are due to her pulmonary fibrosis diagnosis which will be addressed at pulmonary rehab. She has a follow up visit with ortho in June 2024.' Electronically signed by: JORDAN ROWLEY PT Please sign and return to therapist. Thank you for your referral.
== END 2024-05-06 12:01 | disposition home or self-care (01) ==
LOC: HO.PTWFD 11:00
PROVIDERS: PCP Internal Medicine; Visit Provider Physician Assistant
DX: Z96.652 Presence of left artificial knee joint (principal)
CPT/HCPCS: 97110; 97112; 97116; 97140; 97162; 97530; 97535

== ENCOUNTER 2024-06-25 13:06 | Outpatient (AMB) | payer MEDICARE, SELFPAY ==
--- NOTE | 2024-06-25 13:08 | MHC.OFFVIS ---
Intake Visit Reasons: OV- left TKA 03/16/24 with 2 month f/u Intake Note: Mundo is a 78 year old female who presents to the office today for a 2 month follow up left TKA 03/16/24. Pt states she is feeling well and states she only gets minimal pain when she is getting off of her couch or walking up stairs. She continues with her home exercise program. She denies any fevers or chills. She takes Tylenol as needed for her discomfort. Allergies morphine Allergy (Severe, Verified 06/25/24 13:08) Nausea and Vomiting Medication List - Last Reconciled 06/26/24 by Inocente Mendoza MD acetaminophen 650 mg (2 x 325 mg) PO Q6H PRN 30 days amoxicillin 2,000 mg (4 x 500 mg) PO ONCE 1 day apixaban (Eliquis) 5 mg PO BID doxepin 10 mg PO Q OTHER DAY gabapentin 600 mg PO BEDTIME gabapentin 300 mg PO BID hydrochlorothiazide 25 mg PO DAILY multivitamin 1 tab PO DAILY omeprazole 20 mg PO BID pirfenidone (Esbriet) 801 mg PO TID sennosides (Senna Lax) 17.2 mg (2 x 8.6 mg) PO BEDTIME PRN 30 days simvastatin 20 mg PO BEDTIME triazolam 0.25 mg PO Q OTHER DAY walker Folding front wheeled walker [facility] Medical History Insomnia Peripheral neuropathy A-fib History of ectopic Personal history of COVID-19 (~09/2021) DJD (degenerative joint disease) Osteoarthritis Hiatal hernia GERD (gastroesophageal reflux disease) Pancreatic cyst RLS (restless legs syndrome) LUL (obstructive sleep apnea) Depression Anxiety Elevated cholesterol HTN (hypertension) Carotid stenosis, bilateral Hx of cardiac pacemaker Neuropathy Pulmonary fibrosis CAD (coronary artery disease) Osteomyelitis Surgical History S/P PICC central line placement (~03/2022) Hx of appendectomy History of open reduction and internal fixation (ORIF) procedure Hx of arthroscopic knee surgery Hx of hysterectomy History of esophagogastroduodenoscopy (EGD) Hx of colonoscopy Social History Household Members: Children Household Members Other:: adult son Housing: House Are you a primary career information specialist to a significant other at home: No Do you presently have visiting nurse or other home services: No Comment: aware of trip hazard Patient Tobacco Use Status: Never used Tobacco Second Hand Smoke Exposure: Yes ( smoked lived together 23 years) service: No Physical Exam Const Other: Well-nourished well-developed very friendly female awake alert and oriented x3 in no acute distress Extrem Other: Bilateral lower extremity examination shows good capillary refill, no skin lesions noted, normal sensation light touch Left knee examination shows that the surgical incision is well healed, no erythema, full active extension and flexion to 120 degrees, her patella tracks well Assessment & Plan Assessment & Plan (1) Left knee pain: Code(s): M25.562 - Pain in left knee Category: Medical Plan Ms. Vasquez continues to do very well after undergoing left total knee replacement surgery on 03/16/2024. She will continue with her home exercise program. She does know to take antibiotics before any dental work. She will contact me prior to her follow-up appointment in 3 months should any questions or concerns arise. Feel free to call me at any time should questions regarding her orthopedic management arise. I spent 21 minutes in reviewing the patient's records and imaging studies, seeing the patient and documenting in the medical record. Coding Level of Care Code Est Pt Level 3 (97053) Diagnoses Left knee pain M25.562
== END 2024-06-25 13:24 | disposition home or self-care (01) ==
PROVIDERS: PCP Internal Medicine; Visit Provider Orthopaedic Surgery
DX: M25.562 Pain in left knee (principal); Z96.652 Presence of left artificial knee joint
CPT/HCPCS: 99213

== ENCOUNTER → 2024-06-25 13:06 | Outpatient (BNVA) | payer MEDICARE, SELFPAY | PROVIDERS: PCP Internal Medicine; Visit Provider Orthopaedic Surgery | DX: Z47.1 Aftercare following joint replacement surgery (principal); Z96.652 Presence of left artificial knee joint | CPT/HCPCS: 99212 ==

== ENCOUNTER 2024-10-07 10:10 | Outpatient (REF) | payer MEDICARE, SELFPAY ==
--- NOTE | ~2024-10-07 | XR_ITS ---
EXAMINATION: XR KNEE, LEFT CLINICAL INFORMATION: M25.562 - Pain in left knee COMPARISON: Prior knee radiographs March 2024 TECHNIQUE: 3 views of left knee including AP upright of the left knee. FINDINGS: There is a total knee arthroplasty in place. The components are in the usual position and are unchanged. There is no periprosthetic fracture or surrounding abnormal lucency. There is no effusion. There is arterial calcification noted unchanged. Previously noted skin suyapa are in the long present. XR/XR knee LT 3V IMPRESSION: Postoperative changes related to left total knee arthroplasty without complication by x-ray. Electronically signed by: Conrad Gr MD 10/11/2024 01:44 PM EST
== END 2024-10-07 10:11 | disposition home or self-care (01) ==
LOC: HO.HOSX 10:10
PROVIDERS: Visit Provider Orthopaedic Surgery
DX: M25.562 Pain in left knee (principal)
CPT/HCPCS: 73562; 99212

== ENCOUNTER 2024-10-07 10:23 | Outpatient (AMB) | payer MEDICARE, SELFPAY ==
--- NOTE | 2024-10-07 10:44 | MHC.OFFVIS ---
Vital Signs 10/07/24 10:45 Height 5 ft 4 in Weight 185 lb BMI 31.8 Intake Visit Reasons: OV - Left TKA 03/16/24 with Intake Note: Mundo merino a 78 year old female who presents with complaints of mild intermittent discomfort in her left knee after undergoing left total knee replacement surgery on 03/16/2024. She continues with her home exercise program. She takes Tylenol as needed for discomfort. She denies any fevers or chills. Allergies morphine Allergy (Severe, Verified 10/07/24 10:46) Nausea and Vomiting Medication List - Last Reconciled 10/07/24 by Inocente Mendoza MD acetaminophen 650 mg (2 x 325 mg) PO Q6H PRN 30 days amoxicillin 2,000 mg (4 x 500 mg) PO ONCE 1 day apixaban (Eliquis) 5 mg PO BID doxepin 10 mg PO Q OTHER DAY gabapentin 600 mg PO BEDTIME gabapentin 300 mg PO BID hydrochlorothiazide 25 mg PO DAILY multivitamin 1 tab PO DAILY omeprazole 20 mg PO BID pirfenidone (Esbriet) 801 mg PO TID sennosides (Senna Lax) 17.2 mg (2 x 8.6 mg) PO BEDTIME PRN 30 days simvastatin 20 mg PO BEDTIME triazolam 0.25 mg PO Q OTHER DAY walker Folding front wheeled walker REPLACED [facility] Medical History Insomnia Peripheral neuropathy A-fib History of ectopic Personal history of COVID-19 (~09/2021) DJD (degenerative joint disease) Osteoarthritis Hiatal hernia GERD (gastroesophageal reflux disease) Pancreatic cyst RLS (restless legs syndrome) LUL (obstructive sleep apnea) Depression Anxiety Elevated cholesterol HTN (hypertension) Carotid stenosis, bilateral Hx of cardiac pacemaker Neuropathy Pulmonary fibrosis CAD (coronary artery disease) Osteomyelitis Surgical History S/P PICC central line placement (~03/2022) Hx of appendectomy History of open reduction and internal fixation (ORIF) procedure Hx of arthroscopic knee surgery Hx of hysterectomy History of esophagogastroduodenoscopy (EGD) Hx of colonoscopy Social History Household Members: Children Household Members Other:: adult son Housing: House Are you a primary critical care transport nurse to a significant other at home: No Do you presently have visiting nurse or other home services: No Comment: aware of trip hazard Patient Tobacco Use Status: Never used Tobacco Second Hand Smoke Exposure: Yes ( smoked lived together 23 years) service: No Physical Exam Vital Signs: BMI result Body Mass Index 31.8 Const Other: Well-nourished well-developed very friendly female awake alert and oriented x3 in no acute distress Extrem Other: Bilateral lower extremity examination shows good capillary refill, no skin lesions noted, normal sensation light touch Left knee examination shows that the surgical incision is well healed, no erythema, full active extension and flexion to 120 degrees, her patella tracks well Assessment & Plan Assessment & Plan (1) Left knee pain: Code(s): M25.562 - Pain in left knee Category: Medical Plan Ms. Vasquez continues to do very well after undergoing left total knee replacement surgery on 03/16/2024. She will continue with her home exercise program. She does know to take antibiotics before any dental work. She will contact me prior to her annual follow-up appointment should any questions or concerns arise. Feel free to call me at any time should questions regarding her orthopedic management arise. I spent 22 minutes in reviewing the patient's records and imaging studies, seeing the patient and documenting in the medical record. Orders: Orders XR knee LT 3V Today M25.562 - Pain in left knee Coding Level of Care Code Est Pt Level 3 (78608) Complex EM visit Add On G2211 Diagnoses Left knee pain M25.562
[2024-10-07 10:45] VITALS: BMI 31.8
== END 2024-10-07 11:10 | disposition home or self-care (01) ==
PROVIDERS: PCP Internal Medicine; Visit Provider Orthopaedic Surgery
DX: M25.562 Pain in left knee (principal)
CPT/HCPCS: 99213; G2211

== ENCOUNTER 2025-03-16 10:57 | Outpatient (REF) | payer MEDICARE, SELFPAY ==
--- NOTE | ~2025-03-16 | XR_ITS ---
EXAMINATION: XR KNEE, LEFT CLINICAL INFORMATION: M25.562 - Pain in left knee COMPARISON: October 07, 2024. TECHNIQUE: Three views of the left knee. 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 There is loosening in both the tibial component and to a lesser extent the femoral component. No gross malalignment. Vascular calcifications. XR/XR knee LT 3V IMPRESSION: Loosening involving the medial prosthetic component and to a lesser extent the femoral prosthetic component. Electronically signed by: William Chaudhary MD 03/16/2025 01:10 PM EDT
--- OUTSIDE RECORDS SUMMARY | 2025-03-17 12:22 | XMS_ITS ---
Author Organization [facility] Jamil [place] Address [address] [facility] [place] [address] Care Team Providers Care Computer Aide Name Role Phone Fina Moody Primary Care Provider Steven Lynn Unavailable [phone] Allergies Allergen (clinical drug ingredient) Drug/Non Drug [...] Ordered Date Performed Result Body Sit e 34436-FXVVPKT NAIL, 1-5 01/28/2025 N/A 96770-IGYX SKIN LESIONS, OVER 4 01/28/2025 N/A I7725-HYKFLBNY DYSTROPHIC NAILS ANY # 01/28/2025 N/A Encounters Encounter Location Date Provider Diagnosis [facility] [place] [address] [place] [address] 01/28/2025 Steven Faye Atherosclerosis of [place] artery of both lower extremities, with unspecified presence of clinical manifestation I70.203 ; Tinea unguium B35.1 ; Pain in right toe(s) M79.674 and Pain in left toe(s) M79.675 Assessments Encounter Date Diagnosis (ICD Code) Assessment Notes Treatment Notes Treatment Clinical Notes Section Notes 01/28/2025 Atherosclerosis of [place] artery of both lower extremities, with unspecified presence of clinical manifestation (ICD-10 - I70.203) 01/28/2025 Tinea unguium (ICD-10 - B35.1) 01/28/2025 Pain in right toe(s) (ICD-10 - M79.674) 01/28/2025 Pain in left toe(s) (ICD-10 - M79.675) Plan Of Treatment Pending Test Test Name Order Date 64553-WFYZUUF NAIL, 1-5 01/28/2025 00777-AMRY SKIN LESIONS, OVER 4 01/29/20 25 W8289-HYUNSRFP DYSTROPHIC NAILS ANY # Next Appt Details Follow Up: prn, Reason: Provider Name:Steven Faye , 04/21/2025 02:45:00 PM, [address] [facility], [address], [place], [address], Procedure Notes * Category Sub-Category Detail Notes [...] instrumentation by the physician of record - 62717, Q8 Debride Nails 1-5 Procedure: Due to [...] necessary to maintain effective symptomatic relief - 14777 Nail Reduction Nail Reduction (-27) Trimming o [...] Notes * Mundo BAJWADOB:[birth year] (79 yo F)Acc No.[id number]:01/28/2025 Progress Note Patient:?Mundo BAJWA Provider:?Steven Faye DPM :1945???Age:79 Y???Sex:Female D ate:01/28/2025 Address:[address] [place], [place] [address] Pcp:Fina Moody Subjective: * Chief Complaints: * [...] Assessment: 1.?Tinea unguium - B35.1???2 .?Atherosclerosis of [place] artery of both lower extremities, with unspecified presence of clinical manifestation - I70.203 (Primary)???3.?Pain in right toe(s) - M79.674???4.?Pain in left toe(s) - M79.675??? Plan: * Treatment: 2.?Tinea unguium?Procedure: 77350-LQKNBIJ NAIL, 1-5 * Procedures:?Debride Nails 1-5:?Procedure:?Due to [...] necessary to maintain effective symptomatic relief - 87955.?Keratoma Treatment:?Parring or Cutting of Benign Hyperkeratotic Lesion(s)?(-57) [...] instrumentation by the physician of record - 05771, Q8.?Nail Reduction:?Nail Reduction?(-27) Trimming of all dystrophic [...] DYSTROPHIC NAILS ANY #, Modifiers: XS , [id number] DEBRIDE NAIL, 1-5, Modifiers: XS 00737 TRIM SKIN LESIONS, OVER 4, Modifiers: XS , Q8 * Follow Up:?prn * Images: * Sign off status: Completed true * Provider:?Steven Faye DPM Date:?2024 Generated for Janiya kuhn/Darby/Aggie on:?03/17/2025 12:22 PM EDT History and Physical Notes * [...]
--- OUTSIDE RECORDS SUMMARY | 2025-03-17 12:22 | XMS_ITS ---
Author Organization [facility] [place] Address [address] [place] [address] Care Team Providers Care Documentation Clerk Name Role Phone Fina Moody Primary Care Provider Steven Lynn Unavailable [phone] Encounters Encounter Location Date Provider Diagnosis [facility] [address] [place] [address] 10/19/2024 Steven Faye Plan Of Treatment Next Appt Details Provider Name:Steven Faye , 04/21/2025 02:45:00 PM, [address] [address], [place], [address], Progress Notes * Mundo BAJWADOB:[birth year] (79 yo F)Acc No.[id number]:10/19/2024 Progress Note Patient:?Mundo BAJWA Provider:?Steven Faye DPM :1945???Age:78 Y???Sex:Female D ate:10/19/2024 Address:[address], [place] Pcp:Fina Moody Subjective: * Chief Complaints: * ??? * Medical History:? Objective: * Vitals:? Assessment: Plan: * Treatment: * Images: * The named appointment provid er may or may not be the originator of this progress note, and it is not deemed complete until electronically signed by the appointment provider. Sign off status: Pending * Provider:?Steven Faye DPM Date:?2023 Generated for Janiya kuhn/Darby/Aggie on:?03/17/2025 12:22 PM EDT
--- OUTSIDE RECORDS SUMMARY | 2025-03-17 12:23 | XMS_ITS ---
Author Organization [facility] Address [address] [facility] [place] [address] Care Team Providers Care Insurance Actuary Name Role Phone Fina Moody Primary Care Provider Steven Lynn Unavailable [phone] Allergies Allergen (clinical drug ingredient) Drug/Non Drug [...] Ordered Date Performed Result Body Sit e 02168-CASMQYV NAIL, 1-5 10/22/2024 N/A 19976-MPWA SKIN LESIONS, OVER 4 10/22/2024 N/A S2053-IDZPAKDX DYSTROPHIC NAILS ANY # 10/22/2024 N/A Encounters Encounter Location Date Provider Diagnosis [facility] [address] [address] 10/22/2024 Steven Faye Atherosclerosis of [place] artery of both lower extremities, with unspecified presence of clinical manifestation I70.203 ; Tinea unguium B35.1 ; Pain in right toe(s) M79.674 and Pain in left toe(s) M79.675 Assessments Encounter Date Diagnosis (ICD Code) Assessment Notes Treatment Notes Treatment Clinical Notes Section Notes 10/22/2024 Atherosclerosis of [place] artery of both lower extremities, with unspecified presence of clinical manifestation (ICD-10 - I70.203) 10/22/2024 Tinea unguium (ICD-10 - B35.1) 10/22/2024 Pain in right toe(s) (ICD-10 - M79.674) 10/22/2024 Pain in left toe(s) (ICD-10 - M79.675) Plan Of Treatment Pending Test Test Name Order Date 67166-GPYKBYF NAIL, 1-5 10/22/2024 37861-QUAK SKIN LESIONS, OVER 4 10/22/20 24 Q0152-PHTVXDQZ DYSTROPHIC NAILS ANY # Next Appt Details Follow Up: prn, Reason: Provider Name:Steven Faye , 04/21/2025 02:45:00 PM, [address] [facility], [address] [address], [place], [address], Procedure Notes * Category Sub-Category Detail Notes [...] instrumentation by the physician of record - 49010, Q8 Debride Nails 1-5 Procedure: Due to [...] necessary to maintain effective symptomatic relief - 30286 Nail Reduction Nail Reduction (-27) Trimming o [...] Notes * Mundo BAJWADOB:[birth year] (78 yo F)Acc No.[id number]:10/22/2024 Progress Note Patient:?Mundo BAJWA Provider:?Steven Faye DPM :1945???Age:78 Y???Sex:Female D ate:10/22/2024 Address:[address] [place], [place] [address] Pcp:Fina Moody Subjective: * Chief Complaints: * [...] Assessment: 1.?Tinea unguium - B35.1???2 .?Atherosclerosis of [place] artery of both lower extremities, with unspecified presence of clinical manifestation - I70.203 (Primary)???3.?Pain in right toe(s) - M79.674???4.?Pain in left toe(s) - M79.675??? Plan: * Treatment: 2.?Tinea unguium?Procedure: 14276-FCXCLMT NAIL, 1-5 * Procedures:?Debride Nails 1-5:?Procedure:?Due to [...] necessary to maintain effective symptomatic relief - 02974.?Keratoma Treatment:?Parring or Cutting of Benign Hyperkeratotic Lesion(s)?(-57) [...] instrumentation by the physician of record - 30388, Q8.?Nail Reduction:?Nail Reduction?(-27) Trimming of all dystrophic [...] DYSTROPHIC NAILS ANY #, Modifiers: XS , [id number] DEBRIDE NAIL, 1-5, Modifiers: XS 81756 TRIM SKIN LESIONS, OVER 4, Modifiers: XS [...]
--- OUTSIDE RECORDS SUMMARY | 2025-03-17 12:23 | XMS_ITS | Patient Health Record ---
Author Organization [facility] Jam[facility] [place] Address [address] [facility] [place] [address] Care Team Providers Care Pug Machine Operator Name Role Phone Fina Moody Primary Care Provider Steven Lynn Unavailable [phone] Pattie Milian Unavailable [phone] Allergies Allergen (clinical drug ingredient) Drug/Non Drug [...] W/U Status Risk Notes Problem Atherosclerosis of [place] arteries of the extremities ([id number]) Atherosclerosis of [place] artery of both lower extremities, with unspecified presence of clinical manifestation (I70.203) Active confirmed Vital Signs Blood pressure diastolic 80 mm Hg 01/28/2025 Height 5ft 4.5in in 01/28/2025 Blood pressure systolic 125 mm Hg 01/28/2025 Weight 183 lbs 01/28/2025 BMI 30.92 kg/m2 01/28/2025 Procedures Procedure Date Ordered Date Performed Result Body Sit e 91400-LTSCRPG NAIL, 1-5 05/11/2024 N/A 80436-WOEV SKIN LESIONS, OVER 4 05/11/2024 N/A M5975-QXAPUXFJ DYSTROPHIC NAILS ANY # 05/11/2024 N/A 64699-SVTVDXR SKIN/TISSUE 06/08/2024 N/A 67972- Debride <25 sq cm 07/01/2024 N/A 49413-WDDDSMW NAIL, 1-5 07/22/2024 N/A 39861-AWPP SKIN LESIONS, OVER 4 07/22/2024 N/A C8358-GQNLSVSE DYSTROPHIC NAILS ANY # 07/22/2024 N/A 80615-GQINLQV SKIN/TISSUE 08/31/2024 N/A 12544-FVMPMHYM OF HEMATOMA/FLUID 08/31/2024 N/A 15142-KREFIST NAIL, 1-5 10/22/2024 N/A 70101-KYBU SKIN LESIONS, OVER 4 10/22/2024 N/A C2575-TFZYRLDZ DYSTROPHIC NAILS ANY # 10/22/2024 N/A 68329-LPUCLUB NAIL, 1-5 01/28/2025 N/A 31449-CNJI SKIN LESIONS, OVER 4 01/28/2025 N/A B5229-LNVOVYUN DYSTROPHIC NAILS ANY # 01/28/2025 N/A Encounters Encounter Location Date Provider Diagnosis [facility] [address] [address] 05/11/2024 Steven Yunier Atherosclerosis of [place] artery of both lower extremities, with unspecified presence of clinical manifestation I70.203 ; Tinea unguium B35.1 ; Pain in right toe(s) M79.674 and Pain in left toe(s) M79.[address] [address] 06/08/2024 Steven Yunier Skin ulcer of toe of right foot with fat layer exposed L97.512 ; Cellulitis of toe of right foot L03.031 and Atherosclerosis of [place] artery of both lower extremities, with unspecified presence of clinical manifestation I70.[address] [address] 07/01/2024 Steven Yunier Skin ulcer of toe of right foot, limited to breakdown of skin L97.511 and Cellulitis of toe of right foot L03.[address] [address] 07/22/2024 Steven Mazaier Atherosclerosis of [place] artery of both lower extremities, with unspecified presence of clinical manifestation I70.203 ; Tinea unguium B35.1 ; Pain in right toe(s) M79.674 ; Pain in left toe(s) M79.675 and Skin ulcer of toe of right foot, limited to breakdown of skin L97.[address] [address] 08/31/2024 Pattie Bhandariaker Hematoma of toe of right foot, initial encounter S90.121A and Skin ulcer of toe of right foot, limited to breakdown of skin L97.[address] [address] 09/15/2024 Pattie Milian Skin ulcer of toe of right foot with fat layer exposed L97.[address] [address] 10/22/2024 Stevenmg PuentesYunier Atherosclerosis of [place] artery of both lower extremities, with unspecified presence of clinical manifestation I70.203 ; Tinea unguium B35.1 ; Pain in right toe(s) M79.674 and Pain in left toe(s) M79.675 [facility] [address] [address] 01/28/2025 Steven Faye Atherosclerosis of [place] artery of both lower extremities, with unspecified presence of clinical manifestation I70.203 ; Tinea unguium B35.1 ; Pain in right toe(s) M79.674 and Pain in left toe(s) M79.675 [facility] [address] [address] 05/11/2024 [facility] [address] 06/01/2024 [facility] [address] 07/22/2024 [facility] [address] 07/23/2024 Steven Faye Assessments Encounter Date Diagnosis [...] unguium (ICD-10 - B35.1) 05/11/2024 Atherosclerosis of [place] artery of both lower extremities, with unspecified [...] unguium (ICD-10 - B35.1) 07/22/2024 Atherosclerosis of [place] artery of both lower extremities, with unspecified presence of clinical manifestation (ICD-10 - I70.203) 10/22/2024 Atherosclerosis of [place] artery of both lower extremities, with unspecified presence of clinical manifestation (ICD-10 - I70.203) 01/28/2025 Tinea unguium (ICD-10 - B35.1) 01/28/2025 Atherosclerosis of [place] artery of both lower extremities, with unspecified presence of clinical manifestation (ICD-10 - I70.203) 10/22/2024 Pain in right toe(s) (ICD-10 - M79.674) 01/28/2025 Pain in right toe(s) (ICD-10 - M79.674) 06/08/2024 Atherosclerosis of [place] artery of both lower extremities, with unspecified [...] X ray : Foot, right 3V 06/08/2024 00553-GNWTKCL NAIL, 1-5 02/17/2024 89266-BEVPAFZ NAIL, 1-5 05/11/2024 03975-PSKTWFJ NAIL, 1-5 07/03/2023 09685-XFBGVUL NAIL, 1-5 09/05/2023 81954-YRDJYXE NAIL, 1-5 12/02/2023 74276-MMMJAOP NAIL, 1-5 07/22/2024 36962-WCPQTWU NAIL, 1-5 10/22/2024 95414-YVPBHEC NAIL, 1-5 01/28/2025 07462- Debride <25 sq cm 07/03/2023 23144- Debride <25 sq cm 07/01/2024 40139-BGZSSDQ SKIN/TISSUE 06/08/2024 05380-BQMSUGG SKIN/TISSUE 08/31/2024 85612-CCLX SKIN LESIONS, OVER 4 01/29/20 25 18393-IBYS SKIN LESIONS, OVER 4 10/22/20 24 50465-WLHI SKIN LESIONS, OVER 4 07/22/20 24 49782-VHXK SKIN LESIONS, OVER 4 12/02/19 24 56321-QKRS SKIN LESIONS, OVER 4 05/11/20 24 80873-KHML SKIN LESIONS, OVER 4 02/17/20 24 88382-RQWY SKIN LESIONS, 2 TO 4 07/03/20 23 40812-ANBW SKIN LESIONS, 2 TO 4 09/05/20 23 M4117-WESVNXCL DYSTROPHIC NAILS ANY # A9833-ANLIAAEW DYSTROPHIC NAILS ANY # A7457-FYDRTMYD DYSTROPHIC NAILS ANY # J3033-LJDDWIRW DYSTROPHIC NAILS ANY # N6407-YEJDFJIK DYSTROPHIC NAILS ANY # Q4916-OBDNVHEJ DYSTROPHIC NAILS ANY # G8676-GWAQKAIM DYSTROPHIC NAILS ANY # V8054-SDZUBGKF DYSTROPHIC NAILS ANY # 80866-LKCUCJCI OF HEMATOMA/FLUID 024 Next Appt Details Provider Name:Steven Faye , 04/21/2025 02:45:00 PM, [address] [facility], [address], [place], [address], Insurance Providers Payer Name Payer Address Payer Phone Subscriber Number Group Number Insured Name Patient Relationship to Insured Coverage Start Date Coverage End Date Medicare National [employer] [address] [place] [address] [id number] Mundo Vasquez Self - patient is the insured [employer] [address] [place] [address] [phone] [id number] Mundo Vasquez Self - patient is [...]
--- OUTSIDE RECORDS SUMMARY | 2025-03-17 12:23 | XMS_ITS | Clinical Summary ---
Author Organization [facility] Address [address] [place] [address] Care Team Providers Care Sensor Technician Name Role Phone Fina Moody MD Primary Care Provider [phone] Allergies Active Allergy Reactions Criticality Noted Date [...] age to complete this topic Care Teams Sensor Technician Relationship Specialty Start Date End Date Fina Moody MD PCP - General Internal Medicine 02/16/22
== END 2025-03-16 10:58 | disposition home or self-care (01) ==
LOC: HO.HOSX 10:57
PROVIDERS: Visit Provider Orthopaedic Surgery
DX: M25.562 Pain in left knee (principal)
CPT/HCPCS: 73562; 99212

== ENCOUNTER 2025-03-16 11:16 | Outpatient (AMB) | payer MEDICARE, SELFPAY ==
[2025-03-16 11:24] VITALS: BMI 31.8
--- NOTE | 2025-03-16 11:24 | A.OFFVIS_ITS ---
Vital Signs 03/16/25 11:24 Height 5 ft 4 in Weight 185 lb BMI 31.8 Intake Visit Reasons: OV - Left TKA 03/16/24 with Intake Note: Mundo is an 79 year old female who presents for follow up after undergoing left total knee replacement surgery on 03/16/2024. She reports mild intermittent discomfort in her left knee. She does not take any medicines for discomfort. She denies any fevers or chills. Allergies morphine Allergy (Severe, Verified 03/16/25 11:29) Nausea and Vomiting Medication List - Last Reconciled 03/16/25 by Inocente Mendoza MD acetaminophen 650 mg (2 x 325 mg) PO Q6H PRN 30 days amoxicillin 2,000 mg (4 x 500 mg) PO ONCE 1 day apixaban (Eliquis) 5 mg PO BID doxepin 10 mg PO Q OTHER DAY gabapentin 600 mg PO BEDTIME gabapentin 300 mg PO BID hydrochlorothiazide 25 mg PO DAILY multivitamin 1 tab PO DAILY omeprazole 20 mg PO BID pirfenidone (Esbriet) 801 mg PO TID sennosides (Senna Lax) 17.2 mg (2 x 8.6 mg) PO BEDTIME PRN 30 days simvastatin 20 mg PO BEDTIME triazolam 0.25 mg PO Q OTHER DAY walker Folding front wheeled walker [facility] Medical History Insomnia Peripheral neuropathy A-fib History of ectopic Personal history of COVID-19 (~09/2021) DJD (degenerative joint disease) Osteoarthritis Hiatal hernia GERD (gastroesophageal reflux disease) Pancreatic cyst RLS (restless legs syndrome) LUL (obstructive sleep apnea) Depression Anxiety Elevated cholesterol HTN (hypertension) Carotid stenosis, bilateral Hx of cardiac pacemaker Neuropathy Pulmonary fibrosis CAD (coronary artery disease) Osteomyelitis Surgical History S/P PICC central line placement (~03/2022) Hx of appendectomy History of open reduction and internal fixation (ORIF) procedure Hx of arthroscopic knee surgery Hx of hysterectomy History of esophagogastroduodenoscopy (EGD) Hx of colonoscopy Social History Household Members: Children Household Members Other:: adult son Housing: House Are you a primary respiratory care program director to a significant other at home: No Do you presently have visiting nurse or other home services: No Comment: aware of trip hazard Patient Tobacco Use Status: Never used Tobacco Second Hand Smoke Exposure: Yes ( smoked lived together 23 years) service: No Physical Exam Vital Signs: BMI result Body Mass Index 31.8 Const Other: Well-nourished well-developed very friendly female awake alert and oriented x3 in no acute distress Extrem Other: Left knee examination shows that the surgical incision is well healed, no erythema, full active extension and flexion to 120 degrees, her patella tracks well Results Reviewed Results Reviewed: X-rays of the patient's left knee taken today show a total knee arthroplasty in good position with no signs of loosening, no acute bony abnormalities Assessment & Plan Assessment & Plan (1) Left knee pain: Code(s): M25.562 - Pain in left knee Category: Medical Plan Ms. Vasquez continues to do well after undergoing left total knee replacement surgery on 03/16/2024. She will continue with her home exercise program. She does know to take antibiotics before any dental work. She will contact me prior to her annual follow-up appointment should any questions or concerns arise. Feel free to call me at any time should questions regarding her orthopedic management arise. I spent 20 minutes in reviewing the patient's records and imaging studies, seeing the patient and documenting in the medical record. Orders: Orders XR knee LT 3V Today M25.562 - Pain in left knee Coding Level of Care Code Est Pt Level 3 (46798) Complex EM visit Add On G2211 Diagnoses Left knee pain M25.562
--- OUTSIDE RECORDS SUMMARY | 2025-03-16 13:06 | XMS_ITS ---
[facility] Name [facility] Organization Unknown History of Medication Use Medication Directions Dispensed Refills Start Date End Date Stat us gabapentin (NEURONTIN) 300 mg capsule Take 1 capsule (300 mg total) by mouth 3 (three) times a day. 06/20/2022 active doxepin (SINEquan) 10 mg capsule Take 1 capsule (10 mg total) by mouth if needed. 05/23/2022 active Eliquis 5 mg tablet Take 1 tablet (5 mg total) by mouth 2 (two) times a day. 02/06/2022 active hydroCHLOROthiazide (HYDRODIURIL) 25 mg tablet Take 1 tablet (25 mg total) by mouth 1 (one) time each day. 12/04/2021 active triazolam (HALCION) 0.25 mg tablet TAKE 1 TABLET BY MOUTH AT BEDTIME NEEDED FOR 30 DAYS 09/23/2019 active omeprazole (PriLOSEC) [address] capsule Take 1 capsule (20 mg total) by mouth 2 (two) times a day. 08/10/2019 active simvastatin (ZOCOR) 20 mg tablet Take 1 tablet (20 mg total) by mouth at bedtime. 08/10/2019 active multivit-min/folic acid/lutein (CENTRUM SILVER ORAL) Take by mouth. active pirfenidone 267 mg tablet Take 2 tablets (534 mg total) by mouth 3 (three) times a day. active Problems Problem Status Onset Date Problem Type Date of Resoluti on Source Gastritis active 2023-06-10 ProblemAct [facility] Pancreatic cyst active 2023-04-[address] [facility] Depressive disorder active 2022-03-13 ProblemAct [facility] Mixed hyperlipidemia active 2010-07-12 ProblemAct [facility] Paroxysmal atrial fibrillation active 2024-10-15 ProblemAct [facility] GERD (gastroesophageal reflux disease) active 2010-07-12 ProblemAct [facility] Varicose veins with pain active 2019-04-13 ProblemAct [facility] Esophagitis active 2023-06-10 ProblemAct [facility] PAD (peripheral artery disease) active 2024-12-07 ProblemAct [facility] Foot ulcer, right active 2017-11-20 ProblemAct [facility] Migraine headache active 2010-07-12 ProblemAct [facility] Sick sinus syndrome active 2021-11-13 ProblemAct [facility] DJD (degenerative joint disease) of knee active 2010-07-12 ProblemAct [facility] Hiatal hernia active 2023-06-10 ProblemAct [facility] Insomnia active 2016-10-25 ProblemAct [facility] Anemia active 2024-10-07 ProblemAct [facility] Pacemaker active 2021-11-13 ProblemAct [facility] Obesity (BMI 30.0-34.9) active 2020-09-14 ProblemAct [facility] LUL (obstructive sleep apnea) active 2019-10-28 ProblemAct [facility] Closed fracture of right ankle active 2017-08-19 ProblemAct [facility] Toe osteomyelitis active 2023-01-03 ProblemAct [facility] Wound of right leg active 2024-12-07 ProblemAct [facility] Chronic respiratory failure with hypoxia active 2019-10-06 ProblemAct [facility] Essential hypertension, benign active 2010-07-12 ProblemAct [facility] Pulmonary fibrosis active 2024-10-15 ProblemAct [facility] Anxiety active 2022-03-13 ProblemAct [facility] Mitral valve prolapse active 2010-07-12 ProblemAct [facility] Carotid stenosis, asymptomatic, bilateral active 2018-06-04 ProblemAct [facility] Osteopenia active 2020-09-14 ProblemAct [facility] Prediabetes active 2017-04-25 ProblemAct [facility] CKD (chronic kidney disease) stage 3, GFR 30-59 ml/min active 2015-02-04 ProblemAct [facility] Peripheral neuropathy active 2020-09-14 ProblemAct [facility] RLS (restless legs syndrome) active 2020-09-14 ProblemAct [facility] Pneumonia due to COVID-19 virus active 2021-11-13 ProblemAct [facility] Interstitial lung disease active 2019-10-28 ProblemAct [facility] Immunizations Vaccine Date Source Lot Number Status Influenza trivalent, 0.5mL ( Fluad) 65yo and older 08/19/2024 [facility] [id number] completed Td Tetanus diptheria (Tdvax) 7yo and older 08/19/2024 [facility] [id number] completed RSV, bivalent, protein subun it RSVpreF, 0.5mL, Preservative Free (ABRYSVO) 60yo and older or 32 through 36 wks of 02/05/2024 [facility] completed Influenza, Unspecified 09/13/2023 [facility] co mpleted QA on Request SARS-CoV-2 COVID-19, mRNA, LNP-S, preservative free 12/18/2022 [facility] completed Influenza, Unspecified 08/25/2022 [facility] co mpleted QA on Request SARS-CoV-2 COVID-19, mRNA, LNP-S, preservative free 08/23/2021 [facility] [id number] completed Influenza trivalent, 0.5mL ( Fluad) 65yo and older 08/16/2021 [facility] [id number] completed Pfizer SARS-CoV-2 COVID-19, mRNA, LNP-S, preservative free 01/12/2021 [facility] [id number] completed QA on Request SARS-CoV-2 COVID-19, mRNA, LNP-S, preservative free 12/23/2020 [facility] [id number] completed Zoster recombinant (Shingrix ) 19yo and older 12/07/2020 [facility] [id number] completed Pneumococcal conjugate 13 va lent (Prevnar 13, PCV13) 2mo and older 09/28/2020 [facility] [id number] complet ed Influenza trivalent, 0.5mL ( Fluzone High-dose) 65yo and older 08/31/2020 [facility] comple abena Influenza trivalent, 0.5mL, preservative free (Fluarix; FluLaval; Fluzone) ages 6mo and older (Afluria) 3 years and older 08/31/2020 [id number] completed Zoster recombinant (Shingrix ) 19yo and older 08/18/2020 [id number] completed Influenza trivalent, 0.5mL, preservative free (Fluarix; FluLaval; Fluzone) ages 6mo and older (Afluria) 3 years and older 10/16/2019 [facility] Pneumococcal polysaccharide 23 valent (Pneumovax 23) 2yo and older 11/26/2018 [facility] [id number] com pleted Influenza trivalent, with pr eservative (Fluzone; Afluria) 6mo and older 08/07/2018 [facility] [id number] completed Influenza trivalent, 0.5mL ( Fluad) 65yo and older 08/06/2017 [facility] [id number] completed Influenza trivalent, 0.5mL ( Fluad) 65yo and older 08/29/2016 [facility] [id number] completed Influenza, Unspecified 08/29/2016 [facility] co mpleted Influenza, Unspecified 08/11/2014 [facility] Zoster Live 07/13/2014 [facility] completed Tdap Tetanus diptheria acell ular pertussis (Boostrix; Adacel) 7yo and older 03/17/2014 [facility] [id number] completed Influenza trivalent, 0.5mL ( Fluad) 65yo and older 07/27/2013 [facility] [id number] completed Td Tetanus diptheria (Tdvax) 7yo and older 01/29/2013 [facility] [id number] completed Influenza trivalent, 0.5mL ( Fluad) 65yo and older 09/30/2012 [facility] [id number] completed Influenza trivalent, 0.5mL ( Fluad) 65yo and older 07/31/2011 [facility] [id number] completed Influenza trivalent, 0.5mL ( Fluad) 65yo and older 08/19/2010 [facility] [id number] completed Pneumococcal polysaccharide 23 valent (Pneumovax 23) 2yo and older 08/18/2009 [facility] ma pleted
--- OUTSIDE RECORDS SUMMARY | 2025-03-16 13:06 | XMS_ITS | Patient Health Record ---
Author Organization [facility] Address [address] [place] [address] Support Name Relationship Address Phone ROYAL BAJWA Guarantor Unknown Reason For Referral No Information Medications Medication SIG (Take, Route, Frequency, Duration) Notes Start Date End Date Status Calcium Citrate 500MG 1 ORAL twice daily for -3 [facility] 06/12/2012 Active Simvastatin 20MG 1 ORAL daily for [facility] 06/12/2012 Active traZODone HCl 50MG 1/2 ORAL at bedtime for - [facility] 07/26/2014 Active Metoprolol Succinate 25MG 1 ORAL twice d aily for - [facility] 06/12/2012 Active Omeprazole 20MG 1 ORAL daily for -3 [facility] 06/12/2012 Active Vitamin B-12 500MCG ORAL for -3 [facility] 07/26/2014 Active Aspirin EC 81MG 1 ORAL daily for -3 [facility] 06/12/2012 Active Triamcinolone Acetonide 0.025% External for [facility] 07/26/2014 Active Vitamin A [id number] ORAL for - [facility] 07/26/2014 Active Biotin 5MG ORAL for - [facility] 07/26/2014 Active Problems Problem Type SNOMED Code ICD Code Onset Dates Problem Status W/U Status Risk Notes Problem Hyperlipidemia (44419152) Other and unspecified hyperlipidemia (272.4) Active confirmed Major Problem Benign essential hypertension (4939526) Essential hypertension, benign (401.1) Active confirmed Major Problem Esophageal reflux (231313716) Esophageal reflux (530.81) Active confirmed Major Problem Menopausal symptom (96828311) Symptomatic menopausal or female climacteric states (627.2) Active confirmed Major Problem Gynecological examination normal (353034113967998) Routine gynecological examination (V72.31) Active confirmed Major Problem Screening for malignant neoplasm of colon (518929675) Special screening for malignant neoplasms, colon (V76.51) Active confirmed Major Plan Of Treatment No Information Insurance Providers Payer Name Payer Address Payer Phone Subscriber Number Group Number Insured Name Patient Relationship to Insured Coverage Start Date Coverage End Date MEDICARE [address] [place], [place] [id number] [phone] [id number] ROYAL BAJWA Self - patient is the insured [employer] [address] [place] [address] [phone] [id number] ROYAL BAJWA Self - patient is the insured
--- OUTSIDE RECORDS SUMMARY | 2025-03-16 13:06 | XMS_ITS ---
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 Medications Medication SIG (Take, Route, Frequency, Duration) Notes Start Date End Date Status Doxepin HCl 10 MG 1 capsule at bedtime Orally every other night Active Cephalexin 500 MG 1 capsule Orally asiya ry 8 hrs for 10 days Not-Taking eliquis 5 mg Active Esbriet 267 MG 1 tablet with food Orally Three times a day for 7 day(s) Active Gabapentin 300 MG 1 capsule Orally Onc e a day for 30 day(s) Active Prevagen Active Simvastatin 20 MG 1 tablet in the evening Orally Once a day for 30 day(s) Active Triazolam 0.25 MG 1 tablet at bedtime as needed Orally Once a day Active Iodosorb 0.9 % as directed External ly Apply to ulceration daily with dry sterile dressing for 30 days 06/08/2024 Active Omeprazole 20 MG 1 capsule 30 minutes before morning meal Orally Once a day for 30 day(s) Active hydroCHLOROthiazide 25 MG 1 tablet in th e morning Orally Once a day for 30 day(s) Active Multivitamin Active Social History Tobacco Use: Social History Observation Description Date Details (start date - stop date) Never Smoker NA - NA Tobacco use other than smoking: Question Answer Notes Are you an other tobacco user? No Tobacco Control (Standard) Question Answer Notes Tobacco use: Nonsmoker Additional Findings: Tobacco non-user Current no nsmoker AUDIT-C (Standard) Question Answer Notes Did you have a drink containing alcohol in the p ast year? No Points 0 Interpretation Negative Vital Signs Height 5ft 4.5in in 01/28/2025 Weight 183 lbs 01/28/2025 BMI 30.92 kg/m2 01/28/2025 Blood pressure systolic 125 mm Hg 01/29/20 25 Blood pressure diastolic 80 mm Hg 025 Procedures Procedure Date Ordered Date Performed Result Body Sit e 32827-GURJPVX NAIL, 1-5 01/28/2025 N/A 79561-GZKX SKIN LESIONS, OVER 4 01/28/2025 N/A [id number]-[id number] DYSTROPHIC NAILS ANY # 01/28/2025 N/A Encounters Encounter Location Date Provider Diagnosis [facility] [address] [place] [id number] 01/28/2025 Steven Faye Atherosclerosis of la posta artery of both lower extremities, with unspecified presence of clinical manifestation I70.203 ; Tinea unguium B35.1 ; Pain in right toe(s) M79.674 and Pain in left toe(s) M79.675 Assessments Encounter Date Diagnosis (ICD Code) Assessment Notes Treatment Notes Treatment Clinical Notes Section Notes 01/28/2025 Atherosclerosis of la posta artery of both lower extremities, with unspecified presence of clinical manifestation (ICD-10 - I70.203) 01/28/2025 Tinea unguium (ICD-10 - B35.1) 01/28/2025 Pain in right toe(s) (ICD-10 - M79.674) 01/28/2025 Pain in left toe(s) (ICD-10 - M79.675) Plan Of Treatment Pending Test Test Name Order Date 91978-NRFGCOB NAIL, 1-5 01/28/2025 02310-MDZF SKIN LESIONS, OVER 4 01/29/20 25 P2989-[id number] DYSTROPHIC NAILS ANY # Next Appt Details Follow Up: prn, Reason: Provider Name:Steven Faye , 04/21/2025 02:45:00 PM, [address] [facility], [address], [place], [address], Procedure Notes * Category Sub-Category Detail Notes Keratoma Treatment Parring or Cutting o f Benign Hyperkeratotic Lesion(s) (-57) More than 4 Lesions - Due to the at risk nature of the patients medical condition as documented in the exam findings, performance of this keratoderma treatment is medically necessary as its management by an unskilled/untrained nonprofessional would put this patients foot and overall health at risk. Therefore, the benign hyperkeratotic lesions, ( 6 ) in total, locations as stated and described in the exam ( Medial plantar , IPJ , TA , Plantar, IPJ, T5, SUB MTH (s) , 1 , B/L , Plantar Heel(s), Left, Posterior Heel(s) , Right ), were pared, and/or cut utilizing a sterile 15 blade, tissue nippers, and/or power dremel instrumentation by the physician of record - 78004, Q8 Debride Nails 1-5 Procedure: Due to the cli nical pathology outlined in the exam findings, performance of this nail treatment is medically necessary as its management by an unskilled/untrained nonprofessional would put this patients foot and overall health at risk. Therefore, debridement to affected nail(s), as described in exam ( T4 , T7 , T9 ), was performed exclusively by the physician of record to reduce/remove overall nail length, girth, thickness, subungual debris, and necrotic tissue, by manual and/or electrical means through the use of a nail nipper and/or dremel stylegrinder, to a more viable healthy nail plate or bed tissue 5 nails or fewer in number. Silver nitrate was used for any petechial bleeding as necessary. Definitive antifungal treatment options, both pharmaceutical and surgical, have been reviewed and discussed with the patient. The patient solely prefers the use of intermittent/as needed professional debridement services for their nail condition and understands that additional periodic treatments may be required as necessary to maintain effective symptomatic relief - 85452 Nail Reduction Nail Reduction (-27) Trimming o f all dystrophic nails - Due to the at risk nature of the patients medical condition as documented in the exam findings, performance of this nail treatment is medically necessary as its management by an unskilled/untrained nonprofessional would put this patients foot and overall health at risk. Therefore, the dystrophic nails, in locations as stated and described in the exam ( TA, T1, T2, T3, T5, T6, T8 ), were debrided by the phisician of record to reduce/remove overall nail length and girth, by manual and electrical means with use of a nail nipper and/or dremel, to more viable healthy nail plate or bed tissue - G0127, Q8 Progress Notes * Mundo BAJWADOB:[birth year] (79 yo F)Acc No.[id number]:01/28/2025 Progress Note Patient:?Mundo BAJWA Provider:?Steven Faye DPM :1945???Age:79 Y???Sex:Female D ate:01/28/2025 Address:[address] [place], [place] [id number] Pcp:Fina Moody Subjective: * Chief Complaints: * ???At Risk FootcarePainful N ail(s) aggrevated by shoes and causing difficulty standing/walking. * HPI: ???At Risk footcare:?Pt States Last PCP Visit:?Date?01/25/2025 * ROS:?General/Constitutional:?Nausea?denies.?Vomiting?denies.?Hunger Thirst?denies.?Loss appetite?denies.?Chills?denies.?Fatigue?denies.?Fever?denies.?Night Sweats?denies.?Unexplained weight loss?denies.?Unexplained weight gain?denies.?HEENTM:?Dentures?denies.?Dizziness?denies.?Glasses/contacts?admits.?Retinopathy?de nies.?Blurred/double vision?denies.?TMJ?denies.?Discharge/drainage?denies.?Implants?denies.?Sore throat?denies.?Dental implants?denies.?Hard of hearing ?denies.?Difficulty chewing/swallowing/speaking?denies.?Nose bleeds?denies.?Sore mouth?denies.?Respiratory:?On Oxygen?denies.?Pneumonia/pleurisy?denies.?Bronchitis?denies.?Emphysema?denies.?C oughing?denies.?Cough blood?denies.?Shortness of breath?denies.?Wheezing?denies.?Cardiovascular:?Pacemaker?denies.?MVP?denies.?WPW?denies.?CHF?denies.?Heart attack?denies.?Septal defect?denies.?Rapid beat?denies.?Chest pain ?denies.?Atrial Fib.?denies.?Murmur/Palpitations?denies.?Gastrointestinal:?Hemorrhoids?denies.?Stomach/Abdominal pain?denies.?Dark blood stool?denies.?Irritable bowel ?denies.?Constipation?denies.?Diarrhea?denies.?Hematology:?Swelling?admits.?Clots?denies.?Varicose Veins?denies.?Bruising?admits, on anticoagulants.?Bleeding problem?admits, on anticoagulants.?Genitourinary:?Blood urine?denies.?Frequent/Painfu/urination/bladder control?denies.?Kidney stones?denies.?Infection (UTI)?denies.?Nephropathy?denies.?sex trans dis (STD)?denies.?Prostate?denies.?Musculoskeletal:?Hammertoes?denies.?Bunions?denies.?Back Pain?denies.?Muscle Cramps/ Resting?denies.?Muscle cramps / walking?denies.?Generalized aches and pains?denies.?Weakness?denies.?Integ.:?[place]?denies.?Scars?denies.?Corns/calluses?admits.?Ingrown nails?admits.?Painful nails?admits.?Open Sores?denies.?Rashes?denies.?Neurologic:?Difficulty sleeping?denies.?Brain disorder?denies.?Numbness?admits.?Balance trouble?denies.?Confusion?denies.?Fainting/blackouts?denies.?Tingling?admits, bilateral lower extremities, bilateral upper extremities, in the fingers, in the toes, that is severe, which is constant.?Tremors?denies.? * Medical History:? * Surgical History:?broken arm (s) foot surgery tubal ligation 1966hysterectomy 1975ankle surgery 2016knee replacement, left 03/16/24 * Hospitalization/Major Diagno stic Procedure:?[facility] - scoped 05/28/23 * Family History:?Mother: dece ased, diagnosed with Other malignant neoplasm of unspecified site.?Father: , diagnosed with Unspecified heart disease.?Spouse: .?Siblings: diagnosed with Other malignant neoplasm of unspecified site, Diabetic - NIDDM, Unspecified cerebral artery occlusion with cerebral infarction.? family- arthritis, high blood pressure. * Social History:?Tobacco Use:?Tobacco use other than smoking?Are you an other tobacco user??No ?Tobacco Control (Standard)?Tobacco use:?Nonsmoker ?Additional Findings: Tobacco non-user?Current nonsmoker ???Drugs/Alcohol:?Drugs?Have you used drugs other than those for medical reasons in the past 12 months??No ???Miscellaneous:?Caffeine: yes, soda- 2 glasses. ?Children: yes. ?Exercise: no. ?Marital status: . ?Occupation: Retired. ???Drug/Alcohol:?AUDIT-C (Standard)?Did you have a drink containing alcohol in the past year??No ?Points?0 ?Interpretation?Negative * Medications:?TakingDoxepin H Cl 10 MG Capsule 1 capsule at bedtime Orally every other night eliquis 5 mg Tablet Esbriet 267 MG Tablet 1 tablet with food Orally Three times a day Gabapentin 300 MG Capsule 1 capsule Orally Once a day hydroCHLOROthiazide 25 MG Tablet 1 tablet in the morning Orally Once a day Multivitamin Omeprazole 20 MG Capsule Delayed Release 1 capsule 30 minutes before morning meal Orally Once a day Prevagen Simvastatin 20 MG Tablet 1 tablet in the evening Orally Once a day Triazolam 0.25 MG Tablet 1 tablet at bedtime as needed Orally Once a day Iodosorb 0.9 % Gel as directed Externally Apply to ulceration daily with dry sterile dressing Taking Doxepin HCl 10 MG Capsule 1 capsule at bedtime Orally every other night Taking eliquis 5 mg Tablet Taking Esbriet 267 MG Tablet 1 tablet with food Orally Three times a day Taking Gabapentin 300 MG Capsule 1 capsule Orally Once a day Taking hydroCHLOROthiazide 25 MG Tablet 1 tablet in the morning Orally Once a day Taking Multivitamin Taking Omeprazole 20 MG Capsule Delayed Release 1 capsule 30 minutes before morning meal Orally Once a day Taking Prevagen Taking Simvastatin 20 MG Tablet 1 tablet in the evening Orally Once a day Taking Triazolam 0.25 MG Tablet 1 tablet at bedtime as needed Orally Once a day Taking Iodosorb 0.9 % Gel as directed Externally Apply to ulceration daily with dry sterile dressing Not-Taking/PRNCephalexin 500 MG Capsule 1 capsule Orally every 8 hrs Medication List reviewed and reconciled with the patientNot-Taking/PRN Cephalexin 500 MG Capsule 1 capsule Orally every 8 hrs Medication List reviewed and reconciled with the patient * Allergies:?Morphine: very si ckyes[Allergies Verified] Objective: * Vitals:?Ht: 5ft 4.5in, Wt:18 3, BMI: 30.92, Shoe size:7W, BP:125/80mm Hg, Ht-cm: 162.56 cm, Wt-k.01 kg. * Examination: ???Vascular: ?DP PULSES (B):? 0/4, B/L.?PT PULSES (B):? 0/4, B/L.?CAPILLARY FILL TIME:? delayed, all digits, B/L.?TROPHIC CONDITION-TEXTURE/ELASTICITY/TURGOR/HAIR GROWTH (B):? decreased,?with sparse to absent hair growth, B/L.?TEMPERTURE GRADIENT (C):? decreased, cool to cool, proximal to distal, B/L.?PIGMENTATION:?mottled, B/L.?EDEMA (C):?1/4 , pitting , without aching pain , B/L , Leg(s).?CLAUDICATION (C):?denies, B/L.?REST PAIN:?denies, B/L.?Nails: ?NAILS are:?Elongated, overgrown, dystrophic, lytic, greater than 3mm thick, discolored and friable with crumbly malodorous subungual debris, with dull pain on palpation , T4 , T7 , T9, all other nails not described with characteristics as possessing mycosis are elongated, overgrown, and dystrophic ( TA, T1, T2, T3, T5, T6, T8 ).?Dermatologic: ?SKIN FINDINGS:?Skin exam reveals Keratotic lesion(s) located at , Medial plantar , IPJ , TA , Plantar, IPJ, T5, SUB MTH (s) , 1 , B/L , Plantar Heel(s), Left, Posterior Heel(s) , Right.? Assessment: * Assessment: 1.?Tinea unguium - B35.1???2 .?Atherosclerosis of la posta artery of both lower extremities, with unspecified presence of clinical manifestation - I70.203 (Primary)???3.?Pain in right toe(s) - M79.674???4.?Pain in left toe(s) - M79.675??? Plan: * Treatment: 2.?Tinea unguium?Procedure: 91405-VPEFLEF NAIL, 1-5 * Procedures:?Debride Nails 1-5:?Procedure:?Due to the clinical pathology outlined in the exam findings, performance of this nail treatment is medically necessary as its management by an unskilled/untrained nonprofessional would put this patients foot and overall health at risk. Therefore, debridement to affected nail(s), as described in exam (?T4?,?T7?,?T9?), was performed exclusively by the physician of record to reduce/remove overall nail length, girth, thickness, subungual debris, and necrotic tissue, by manual and/or electrical means through the use of a nail nipper and/or dremel stylegrinder, to a more viable healthy nail plate or bed tissue 5 nails or fewer in number. Silver nitrate was used for any petechial bleeding as necessary. Definitive antifungal treatment options, both pharmaceutical and surgical, have been reviewed and discussed with the patient. The patient solely prefers the use of intermittent/as needed professional debridement services for their nail condition and understands that additional periodic treatments may be required as necessary to maintain effective symptomatic relief - 15052.?Keratoma Treatment:?Parring or Cutting of Benign Hyperkeratotic Lesion(s)?(-57) More than 4 Lesions - Due to the at risk nature of the patients medical condition as documented in the exam findings, performance of this keratoderma treatment is medically necessary as its management by an unskilled/untrained nonprofessional would put this patients foot and overall health at risk. Therefore, the benign hyperkeratotic lesions, ( 6 ) in total, locations as stated and described in the exam (??Medial plantar?,?IPJ?,?TA?,?Plantar,?IPJ,?T5,?SUB MTH (s)?,?1?,?B/L?,?Plantar Heel(s),?Left,?Posterior?Heel(s)?,?Right?), were pared, and/or cut utilizing a sterile 15 blade, tissue nippers, and/or power dremel instrumentation by the physician of record - 93102, Q8.?Nail Reduction:?Nail Reduction?(-27) Trimming of all dystrophic nails - Due to the at risk nature of the patients medical condition as documented in the exam findings, performance of this nail treatment is medically necessary as its management by an unskilled/untrained nonprofessional would put this patients foot and overall health at risk. Therefore, the dystrophic nails, in locations as stated and described in the exam ( TA, T1, T2, T3, T5, T6, T8 ), were debrided by the phisician of record to reduce/remove overall nail length and girth, by manual and electrical means with use of a nail nipper and/or dremel, to more viable healthy nail plate or bed tissue - G0127, Q8.? * Procedure Codes:?G0127 CHRISTIANA ING DYSTROPHIC NAILS ANY #, Modifiers: XS , G580280 DEBRIDE NAIL, 1-5, Modifiers: XS 97461 TRIM SKIN LESIONS, OVER 4, Modifiers: XS , Q8 * Follow Up:?prn * Images: * Sign off status: Completed true * Provider:?Steven Faye DPM Date:?2024 Generated for Janiya kuhn/Darby/Aggie on:?03/16/2025 01:06 PM EDT History and Physical Notes * HPI (History of Present Illness) Category Sub-Category Detail Notes Category Not es At Risk footcare Pt States Last PCP Visit: Date: Examination Category Sub-Category Detail Notes Category Not es Dermatologic SKIN FINDINGS: Skin exam reveal s Keratotic lesion(s) located at , Medial plantar , IPJ , TA , Plantar, IPJ, T5, SUB MTH (s) , 1 , B/L , Plantar Heel(s), Left, Posterior Heel(s) , Right Vascular DP PULSES (B): 0/4, B/L PT PULSES (B): 0/4, B/L CAPILLARY FILL TIME: delayed, all digits , B/L TEMPERTURE GRADIENT (C): decreased, cool to cool, proximal to distal, B/L TROPHIC CONDITION-TEXTURE/ELASTICITY/TURGOR/HAIR GROWTH (B): decreased, with sparse to absent hair gr owth, B/L EDEMA (C): 1/4 , pitting , with out aching pain , B/L , Leg(s) CLAUDICATION (C): denies, B/L REST PAIN: denies, B/L PIGMENTATION: mottled, B/L Nails NAILS are: Elongated, overg rown, dystrophic, lytic, greater than 3mm thick, discolored and friable with crumbly malodorous subungual debris, with dull pain on palpation , T4 , T7 , T9, all other nails not described with characteristics as possessing mycosis are elongated, overgrown, and dystrophic ( TA, T1, T2, T3, T5, T6, T8 )
--- OUTSIDE RECORDS SUMMARY | 2025-03-16 13:06 | XMS_ITS ---
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 Name Role Phone Fina Moody Primary Care Provider Steven Lynn Unavailable [phone] Encounters Encounter Location Date Provider Diagnosis [facility] [address] [place] [phone] 10/19/2024 Steven Faye Plan Of Treatment Next Appt Details Provider Name:Steven Faye , 04/21/2025 02:45:00 PM, [address] [address], [place], [address], Progress Notes * Mundo BAJWADOB:[birth year] (79 yo F)Acc No.[id number]:10/19/2024 Progress Note Patient:?Mundo BAJWA Provider:?Steven Faye DPM :1945???Age:78 Y???Sex:Female D ate:10/19/2024 Address:[address], [place] Pcp:Fina Moody Subjective: * Chief Complaints: * ??? * Medical History:? Objective: * Vitals:? Assessment: Plan: * Treatment: * Images: * The named appointment provid er may or may not be the originator of this progress note, and it is not deemed complete until electronically signed by the appointment provider. Sign off status: Pending * Provider:?Steven Faye DPM Date:?2023 Generated for Janiya kuhn/Darby/Aggie on:?03/16/2025 01:06 PM EDT
--- OUTSIDE RECORDS SUMMARY | 2025-03-16 13:07 | XMS_ITS | Patient Health Record ---
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 Name Role Phone Fina Moody Primary Care Provider Steven Lynn Unavailable [phone] Pattie Milian Unavailable [phone] Allergies Allergen (clinical drug ingredient) Drug/Non Drug Allergy documented on EMR Reaction Allergy Type Onset Date Status morphine Morphine very sick Drug Allergy Active Reason For Referral No Information Medications Medication [...] sterile dressing for 30 days 06/08/2024 Active hydroCHLOROthiazide 25 MG 1 tablet in th e morning Orally Once a day for 30 day(s) Active Multivitamin Active Omeprazole 20 MG 1 capsule 30 minutes before morning meal Orally Once a day for 30 day(s) Active Social History Tobacco Use: Social History [...] ast year? No Points 0 Interpretation Negative Problems Problem Type SNOMED Code ICD Code Onset Dates Problem Status W/U Status Risk Notes Problem Atherosclerosis of [place] arteries of the extremities ([id number]) Atherosclerosis of [place] artery of both lower extremities, with unspecified presence of clinical manifestation (I70.203) Active confirmed Vital Signs Blood pressure diastolic 80 mm Hg 01/28/2025 Height 5ft 4.5in in 01/28/2025 Blood pressure systolic 125 mm Hg 01/28/2025 Weight 183 lbs 01/28/2025 BMI 30.92 kg/m2 01/28/2025 Procedures Procedure Date Ordered Date Performed Result Body Sit e 95172-NSPEYPV NAIL, 1-5 05/11/2024 N/A 61295-ROIU SKIN LESIONS, OVER 4 05/11/2024 N/A O2728-PJIXNZJT DYSTROPHIC NAILS ANY # 05/11/2024 N/A 26144-GDTIFGC SKIN/TISSUE 06/08/2024 N/A 22419- Debride <25 sq cm 07/01/2024 N/A 44800-QCPQDNH NAIL, 1-5 07/22/2024 N/A 61103-SCII SKIN LESIONS, OVER 4 07/22/2024 N/A J8492-HNXAMTLD DYSTROPHIC NAILS ANY # 07/22/2024 N/A 20010-FQKOLZO SKIN/TISSUE 08/31/2024 N/A 44511-IRLCGSSQ OF HEMATOMA/FLUID 08/31/2024 N/A 83560-JIAEDTS NAIL, 1-5 10/22/2024 N/A 79496-VPCC SKIN LESIONS, OVER 4 10/22/2024 N/A U1303-LXPKYVHO DYSTROPHIC NAILS ANY # 10/22/2024 N/A 47892-ONATPTL NAIL, 1-5 01/28/2025 N/A 94675-GUTA SKIN LESIONS, OVER 4 01/28/2025 N/A Q4318-KDRHALLI DYSTROPHIC NAILS ANY # 01/28/2025 N/A Encounters Encounter Location Date Provider Diagnosis [facility] [address] [address] 05/11/2024 Steven Yunier Atherosclerosis of [place] artery of both lower extremities, with unspecified presence of clinical manifestation I70.203 ; Tinea unguium B35.1 ; Pain in right toe(s) M79.674 and Pain in left toe(s) M79.[address] [address] 06/08/2024 Steven Yunier Skin ulcer of toe of right foot with fat layer exposed L97.512 ; Cellulitis of toe of right foot L03.031 and Atherosclerosis of [place] artery of both lower extremities, with unspecified presence of clinical manifestation I70.[address] [address] 07/01/2024 Steven Yunier Skin ulcer of toe of right foot, limited to breakdown of skin L97.511 and Cellulitis of toe of right foot L03.[address] [address] 07/22/2024 Steven Mazaier Atherosclerosis of [place] artery of both lower extremities, with unspecified presence of clinical manifestation I70.203 ; Tinea unguium B35.1 ; Pain in right toe(s) M79.674 ; Pain in left toe(s) M79.675 and Skin ulcer of toe of right foot, limited to breakdown of skin L97.[address] [address] 08/31/2024 Pattie Bhandariaker Hematoma of toe of right foot, initial encounter S90.121A and Skin ulcer of toe of right foot, limited to breakdown of skin L97.[address] [address] 09/15/2024 Pattie Milian Skin ulcer of toe of right foot with fat layer exposed L97.[address] [address] 10/22/2024 Stevenmg PuentesYunier Atherosclerosis of [place] artery of both lower extremities, with unspecified presence of clinical manifestation I70.203 ; Tinea unguium B35.1 ; Pain in right toe(s) M79.674 and Pain in left toe(s) M79.675 [facility] [address] [address] 01/28/2025 Steven Faye Atherosclerosis of [place] artery of both lower extremities, with unspecified presence of clinical manifestation I70.203 ; Tinea unguium B35.1 ; Pain in right toe(s) M79.674 and Pain in left toe(s) M79.675 [facility] [address] [address] 05/11/2024 [facility] [address] 06/01/2024 [facility] [address] 07/22/2024 [facility] [address] 07/23/2024 Steven Faye Assessments Encounter Date Diagnosis (ICD Code) Assessment Notes Treatment Notes Treatment Clinical Notes Section Notes 05/11/2024 Tinea unguium (ICD-10 - B35.1) 06/08/2024 Skin ulcer of toe of right foot with fat layer exposed (ICD-10 - L97.512) Patient Educated with: WOUND CARE INSTRUCTIONS. pdf (WOUND CARE INSTRUCTIONS. pdf) 07/01/2024 Cellulitis of toe of right foot (ICD-10 - L03.031) 07/01/2024 Skin ulcer of toe of right foot, limited to breakdown of skin (ICD-10 - L97.511) Improvement Patient Educated with: WOUND CARE INSTRUCTIONS. pdf (WOUND CARE INSTRUCTIONS. pdf) 07/22/2024 Tinea unguium (ICD-10 - B35.1) 05/11/2024 Atherosclerosis of [place] artery of both lower extremities, with unspecified presence of clinical manifestation (ICD-10 - I70.203) 06/08/2024 Cellulitis of toe of right foot (ICD-10 - L03.031) 08/31/2024 Hematoma of toe of right foot, initial encounter (ICD-10 - S90.121A) 08/31/2024 Skin ulcer of toe of right foot, limited to breakdown of skin (ICD-10 - L97.511) Patient Educated with: WOUND CARE INSTRUCTIONS. pdf (WOUND CARE INSTRUCTIONS. pdf) 09/15/2024 Skin ulcer of toe of right foot with fat layer exposed (ICD-10 - L97.512) Response to treatment,Impro vement Patient Educated with: WOUND CARE INSTRUCTIONS. pdf (WOUND CARE INSTRUCTIONS. pdf) 10/22/2024 Tinea unguium (ICD-10 - B35.1) 07/22/2024 Atherosclerosis of [place] artery of both lower extremities, with unspecified presence of clinical manifestation (ICD-10 - I70.203) 10/22/2024 Atherosclerosis of [place] artery of both lower extremities, with unspecified presence of clinical manifestation (ICD-10 - I70.203) 01/28/2025 Tinea unguium (ICD-10 - B35.1) 01/28/2025 Atherosclerosis of [place] artery of both lower extremities, with unspecified presence of clinical manifestation (ICD-10 - I70.203) 10/22/2024 Pain in right toe(s) (ICD-10 - M79.674) 01/28/2025 Pain in right toe(s) (ICD-10 - M79.674) 06/08/2024 Atherosclerosis of [place] artery of both lower extremities, with unspecified presence of clinical manifestation (ICD-10 - I70.203) 05/11/2024 Pain in right toe(s) (ICD-10 - M79.674) 07/22/2024 Pain in right toe(s) (ICD-10 - M79.674) 05/11/2024 Pain in left toe(s) (ICD-10 - M79.675) 07/22/2024 Pain in left toe(s) (ICD-10 - M79.675) 10/22/2024 Pain in left toe(s) (ICD-10 - M79.675) 01/28/2025 Pain in left toe(s) (ICD-10 - M79.675) 07/22/2024 Skin ulcer of toe of right foot, limited to breakdown of skin (ICD-10 - L97.511) Improvement 06/08/2024 Other 07/01/2024 Other 08/31/2024 Other 09/15/2024 Other Plan Of Treatment Pending Test Test Name Order Date X ray : Foot, right 3V 06/08/2024 20364-NFQACDA NAIL, 1-5 02/17/2024 43182-HOVPIET NAIL, 1-5 05/11/2024 45576-JWUIHOY NAIL, 1-5 07/03/2023 41197-DGRCEHI NAIL, 1-5 09/05/2023 31830-YSZVQZA NAIL, 1-5 12/02/2023 20637-RAVRNHH NAIL, 1-5 07/22/2024 64442-VXNPMSI NAIL, 1-5 10/22/2024 87440-FGFJLZA NAIL, 1-5 01/28/2025 64491- Debride <25 sq cm 07/03/2023 20266- Debride <25 sq cm 07/01/2024 50050-OIPQPTU SKIN/TISSUE 06/08/2024 73512-FEKVLIM SKIN/TISSUE 08/31/2024 84216-OWHT SKIN LESIONS, OVER 4 01/29/20 25 60521-IIMH SKIN LESIONS, OVER 4 10/22/20 24 92087-WXXS SKIN LESIONS, OVER 4 07/22/20 24 17357-DAHP SKIN LESIONS, OVER 4 12/02/19 24 02153-SBSW SKIN LESIONS, OVER 4 05/11/20 24 69213-SVCG SKIN LESIONS, OVER 4 02/17/20 24 19686-DJTY SKIN LESIONS, 2 TO 4 07/03/20 23 66572-WBSP SKIN LESIONS, 2 TO 4 09/05/20 23 D3564-COTZKDAN DYSTROPHIC NAILS ANY # Q4762-KWGESNOJ DYSTROPHIC NAILS ANY # A3127-LKNIKYXN DYSTROPHIC NAILS ANY # K9124-VPSNXQEP DYSTROPHIC NAILS ANY # F5580-HYXEHBUI DYSTROPHIC NAILS ANY # B4489-RLHGIKHW DYSTROPHIC NAILS ANY # H9869-SZJIPQTD DYSTROPHIC NAILS ANY # C1723-FKUIFIRN DYSTROPHIC NAILS ANY # 69095-BHRNJVJK OF HEMATOMA/FLUID 024 Next Appt Details Provider Name:Steven Faye , 04/21/2025 02:45:00 PM, [address], [address], [place], [address], Insurance Providers Payer Name Payer Address Payer Phone Subscriber Number Group Number Insured Name Patient Relationship to Insured Coverage Start Date Coverage End Date Medicare National [employer] [address] [place] [address] [id number] Mundo Vasquez Self - patient is the insured [employer] [address] [place] [address] [phone] [id number] Mundo Vasquez Self - patient is the insured Medical (General) History Medical History History ICD Code Back,Hip,and Knee pain Broken bones CAD (Cholesterol) covid-19 High blood pressure Lung disease Reflux ( GERD) Measles Chicken pox Joint implants/screws Surgical History Surgery Date(Month/Year) broken arm(s) foot surgery tubal ligation 1965 hysterectomy 1975 ankle surgery 2016 knee replacement, left 03/16/24 Hospitalization History Reason Date(Month/Year) [facility] - scoped 05/28/23
--- OUTSIDE RECORDS SUMMARY | 2025-03-16 13:07 | XMS_ITS | Clinical Summary ---
Author Organization [facility] Address [address] [place] [address] Care Team Providers Care Fly Maker Name Role Phone Fina Moody MD Primary Care Provider [phone] Allergies Active Allergy Reactions Criticality Noted Date Comments Morphine Nausea And Vomiting 02/22/2022 Medications Medication Sig Dispensed Refills Start Date End Date Status Esbriet 267 MG CAPS 0 01/22/2022 Activ e Eliquis 5 MG TABS tablet Take 5 mg by mouth 2 (two) times a day. 0 02/06/2022 Active hydroCHLOROthiazide (HYDRODIURIL) tablet 25 mg Take 1 tablet by mouth daily. 0 12/04/2021 Active omeprazole (PriLOSEC) 20 MG capsule Take 20 mg by mouth. 0 08/10/2019 Active simvastatin (ZOCOR) tablet 20 mg Take 1 tablet by mouth every night at bedtime. 0 08/10/2019 Active triazolam (HALCION) 0.25 MG tablet TAKE 1 TABLET BY MOUTH AT BEDTIME NEEDED FOR 30 DAYS 0 09/23/2019 Active albuterol 108 (90 Base) MCG/ACT inhaler INHALE 2 PUFFS 4 TIMES A DAY NEEDED FOR WHEEZING 0 05/17/2022 Active doxepin (SINEquan) 10 MG capsule 0 05/23/2022 Active gabapentin (NEURONTIN) 100 MG capsule 0 05/23/2022 Active Family History Medical History Relation Name Comments Cancer Mother Relation Name Status Comments Mother Social History Tobacco Use Types Packs/Day Years Used Date Smoking Tobacco: Never Assessed Sex and Gender Information Value Date Recorded Sex Assigned at Not on file Gender Identity Not on file Sexual Orientation Not on file Job Start Date Occupation Industry Not on file Not on file Not on file Last Filed Vital Signs Vital Sign Reading Time Taken Comments Blood Pressure - - Pulse - - Temperature - - Respiratory Rate - - Oxygen Saturation - - Inhaled Oxygen Concentration - - Weight 86.2 kg (190 lb) 02/22/2022 12:51 PM EDT Height 162.6 cm (5' 4 ) 02/22/2022 12:51 PM EDT Body Mass Index 32.61 02/22/2022 12:51 PM EDT Plan of Treatment Health Maintenance Due Date Last Done Comments Depression Screening 1956 BMI Counseling 1962 Preventative Health Evaluation 1962 Fall Risk Assessment 2009 Osteoporosis Screening (DEXA Scan) 2009 RSV Adult > 60+ Yrs or (1 - 1-dose 75+ series) 2019 DTap / Tdap / Td (2 - Td or Tdap) 03/17/2024 03/17/2014 COVID-19 Vaccine ( season) 2024 08/23/2021, 01/12/2021, 12/23/2020 Influenza Vaccine (#1) 2024 , 08/31/2020, 10/16/2019, Additional history exists Pneumococcal Vaccine Completed 09/28/2020, 11/26/2018, 08/18/2009 Shingrix-Zoster Vaccine Completed 12/07/2020, 08/18 Hepatitis B Vaccines Aged Out No long er eligible based on patient's age to complete this topic RSV Ped < 20 months Aged Out No longe r eligible based on patient's age to complete this topic Care Teams Fly Maker Relationship Specialty Start Date End Date Fina Moody MD PCP - General Internal Medicine 02/16/22
--- OUTSIDE RECORDS SUMMARY | 2025-03-16 13:07 | XMS_ITS | Clinical Summary ---
Author Organization [facility] [address] [place] [address] [address] [place] [address] Phone Care Team Providers Care Slab Worker Name Role Phone Fina Moody MD Primary Care Provider [phone] Allergies Active Allergy Reactions Criticality Noted Date Comments Morphine Nausea And Vomiting 02/22/2022 Medications hydroCHLOROthi azide (HYDRODIURIL) 25 mg tablet Take 1 tablet (25 mg total) by mouth 1 (one) time each day. 12/04/19 22 Active doxepin (SINEquan) 10 mg capsule Take 1 capsule (10 mg total) by mouth if needed. 05/23/20 22 Active gabapentin (NEURONTIN) 300 mg capsule Take 1 capsule (300 mg total) by mouth 3 (three) times a day. 06/20/20 22 Active multivit-min/f olic acid/lutein (CENTRUM SILVER ORAL) Take by mouth. Active triazolam (HALCION) 0.25 mg tablet TAKE 1 TABLET BY MOUTH AT BEDTIME NEEDED FOR 30 DAYS 09/23/20 19 Active clopidogreL (PLAVIX) 75 mg tablet Take 1 tablet (75 mg total) by mouth 1 (one) time each day. 30 each 2 12/22/19 25 025 Active scopolamine (TRANSDERM-SCO P) 1 mg over 3 days patch 3 dayIndications :Motion sickness, initial encounter Apply 1 patch topically every 3rd (third) day if needed (nausea). 3 patch 01/16/20 25 Active omeprazole (PriLOSEC) [address] capsule TAKE 1 CAPSULE TWICE DAILY 180 capsule 1 01/26/20 25 Active simvastatin (ZOCOR) 20 mg tablet TAKE 1 TABLET AT BEDTIME 90 tablet 1 01/26/20 25 Active Eliquis 5 mg tablet TAKE 1 TABLET TWICE A DAY 180 tablet 1 01/26/20 25 Active pirfenidone 267 mg tablet Take 3 tablets (801 mg total) by mouth 3 (three) times a day. 03/03/20 25 Active pirfenidone 267 mg tablet Take 2 tablets (534 mg total) by mouth 3 (three) times a day. 025 Discontinued Active Problems Problem Noted Date Diagnosed Date PAD (peripheral artery disease) ([facility] V24) Assessment & Plan (03/03/2025 1:13 PM EDT): Paroxysmal atrial fibrillation ([facility] V24, [facility] V28) 10/15/2024 Assessment & Plan (03/03/2025 1:13 PM EDT): Pulmonary fibrosis ([facility] V24, [facility] V28) Assessment & Plan (03/03/2025 1:13 PM EDT): Anemia 10/07/2024 Esophagitis 06/10/2023 Gastritis 06/10/2023 Hiatal hernia 06/10/2023 Pancreatic cyst 04/18/2023 History of osteomyelitis 01/03/2023 Overview (10/07/2024): Right first toe Anxiety 03/13/2022 Depressive disorder 03/13/2022 Pneumonia due to COVID-19 virus 11/13/2021 Overview (10/07/2024): 10/04/21 Sick sinus syndrome ([facility] V24, [facility] V28) 0 11/13/2021 Overview (10/07/2024): 10/01 secondary to covid, pacer placed Pacemaker 11/13/2021 Overview (10/15/2024): Sick sinus, covid Obesity (BMI 30.0-34.9) 09/14/2020 Osteopenia 09/14/2020 Peripheral neuropathy 09/14/2020 Overview (10/07/2024): Dr. Orozco RLS (restless legs syndrome) 09/14/2020 Overview (10/07/2024): Dr. Orozco Interstitial lung disease ([facility] V24, [facility] V28) 10/28/2019 Overview (10/07/2024): Dr. Joiner ([facility]) Assessment & Plan (03/03/2025 1:13 PM EDT): LUL (obstructive sleep apnea) 10/28/2019 Varicose veins with pain 04/13/2019 Carotid stenosis, asymptomatic, bilateral 2017 Overview (10/07/2024): 50-69%, carotid scan 06/03/2018 Closed fracture of right ankle 08/19/2017 Overview (10/07/2024): Last Assessment & Plan: 05/02/2017 Prediabetes 04/25/2017 Overview (10/07/2024): HA1c 5.7% Insomnia 10/25/2016 Overview (10/07/2024): Dr. Orozco CKD (chronic kidney disease) stage 3, GFR 30-59 ml/min ([facility] V24, [facility] V28) 02/04/2015 DJD (degenerative joint disease) of knee 010 Essential hypertension, benign 07/12/2010 GERD (gastroesophageal reflux disease) 0 Assessment & Plan (03/03/2025 1:13 PM EDT): Migraine headache 07/12/2010 Mitral valve prolapse 07/12/2010 Overview (10/07/2024): Trace mitral regurgitation Mixed hyperlipidemia 07/12/2010 Assessment & Plan (03/03/2025 1:13 PM EDT): Orders: Lipid panel with reflex to direct LDL; Future Resolved Problems Problem Noted Date Diagnosed Date Resolved Date Wound of right leg 12/07/2024 Chronic respiratory failure with hypoxia ([facility] [place], [facility] V28) 10/06/2019 03/03/2025 Foot ulcer, right ([facility] V24, [facility] V28) 8 03/03/2025 Encounters Date Type Department Care Team Description 03/03/2025 1:00 PM EDT Office Visit Adult [address] [phone] Fina Moody MD Encounter for annual wellness visit (AWV) in Medicare patient (Primary Dx); Paroxysmal atrial fibrillation ([facility]24, [facility] V28); Pulmonary fibrosis ([facility] V24, [facility] V28); Mixed hyperlipidemia; Interstitial lung disease ([facility] V24, [facility] V28); Gastroesophageal reflux disease without esophagitis; PAD (peripheral artery disease) ([facility] V24); Stage 3a chronic kidney disease ([facility] V24, [facility] V28) 02/25/2025 12:00 PM EDT Ancillary Procedure [facility] [address] [facility] [place] [place] [phone] PAD (peripheral artery disease) ([facility] V24) 02/04/2025 Telephone Adult Medicine [address] [phone] Fina Moody MD Medication Problem (omeprazole (PriLOSEC) [address] capsule /) 02/02/2025 Telephone Adult Medicine [address] [phone] Fina Moody MD Medication 01/15/2025 1:30 PM EST Office Visit Adult [address] [phone] Fina Moody MD Toe osteomyelitis ([facility] V24, [facility] V28) (Primary Dx); PAD (peripheral artery disease) ([facility] V24); Prediabetes; Mixed hyperlipidemia; Hematoma; Motion sickness, initial encounter 01/14/2025 Telephone Adult Medicine [facility] [address] [place] [phone] Abbie Hodge RN 01/04/2025 3:49 PM EST - 01/04/2025 11:59 PM EST Hospital Encounter [facility] Xray [address] [place] [phone] Shortness of breath Discharge Disposition: Home or Self Care 01/04/2025 2:45 PM EST Office Visit Vascular Surgery [facility] [address] [place] [address] Zbigniew Benson MD Shortness of breath (Primary Dx); PAD (peripheral artery disease) ([facility] V24) 12/22/2024 8:30 AM EST - 12/22/2024 9:30 AM EST Surgery [facility] Cardiac Resident Services Coordinator [address] [place] [phone] Zbigniew Benson MD Angiography right lower extremity [75045 (CPT??)] 12/22/2024 7:24 AM EST - 12/22/2024 5:31 PM EST Hospital Encounter [facility] Cardiac Resident Services Coordinator [address] [place] [phone] Zbigniew Benson MD PAD (peripheral artery disease) ([facility] V24); Wound of right lower extremity, subsequent encounter Discharge Disposition: Home or Self Care from Last 3 Months Immunizations Name Administration Dates Next Due Influenza trivalent, 0.5mL ( Fluad) 65yo and older 08/19/2024,08/16/2021,08/06/2017,08/29,07/27/2013,09/30/2012,07/31/2011 ,08/19/2010 Influenza trivalent, 0.5mL ( Fluzone High-dose) 65yo and older 08/31/2020 Influenza trivalent, 0.5mL, preservative free (Fluarix; FluLaval; Fluzone) ages 6mo and older (Afluria) 3 years and older 08/31/2020,10/16/2019 Influenza trivalent, with pr eservative (Fluzone; Afluria) 6mo and older 08/07/2018 Influenza, Unspecified 09/13/2023,2021,08/29/2016,08/11 RateElert SARS-CoV-2 COVID-19, mRNA, LNP-S, preservative free 12/18/2022,08/23/2021,01/12/2021,12/23 Pneumococcal conjugate 13 va lent (Prevnar 13, PCV13) 2mo and older 09/28/2020 Pneumococcal polysaccharide 23 valent (Pneumovax 23) 2yo and older 11/26/2018,08/18/2009 RSV, bivalent, protein subun it RSVpreF, 0.5mL, Preservative Free (ABRYSVO) 60yo and older or 32 through 36 wks of 02/05/2024 Td Tetanus diptheria (Tdvax) 7yo and older 08/19/2024,01/29/2013 Tdap Tetanus diptheria acell ular pertussis (Boostrix; Adacel) 7yo and older 03/17/2014 Zoster Live 07/13/2014 Zoster recombinant (Shingrix ) 19yo and older 12/07/2020,08/18/2020 Surgical History Surgery Date Site/Laterality Comments ANKLE FRACTURE SURGERY HYSTERECTOMY 1974 TUBAL LIGATION KNEE SURGERY 2009 arth l knee TOTAL KNEE ARTHROPLASTY 03/2024 Left Medical History Medical History Date Comments Hypertension Closed fracture of right ankle 08/19/2017 Pulmonary fibrosis ([facility] V24, [facility] V28) Chronic kidney disease Anemia GERD (gastroesophageal reflux disease) Obstructive sleep apnea Pneumonia due to COVID-19 virus 11/13/2021 10/04/21 Sick sinus syndrome ([facility] V24, [facility] V28) 11/13/202110/01 secondary to covid, pa cer placed Pacemaker 11/13/2021 Toe osteomyelitis ([facility] V 24, [facility] V28) 01/03/2023 Pancreatic cyst 04/18/2023 Total knee replacement status 05/05/2024 left TKR Family History Medical History Relation Name Comments Hypertension Brother Heart attack Father Cancer Mother 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: on air 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 cancer Mother Hypertension Sister Relation Name Status Comments Brother Father Mother Sister Social History Tobacco Use Types Packs/Day Years Used Date Smoking Tobacco: Never Smokeless Tobacco: Never Tobacco Cessation:Counseling Given: Not Answered Alcohol Use Standard Drinks/Week Comments No 0 (1 standard drink = 0.6 oz pur e alcohol) Comments Unknown Sex and Gender Information Value Date Recorded Sex Assigned at Female 12/21/2024 8:48 AM EST Legal Sex Female 8:13 AM EST Gender Identity Female 12/21/2024 8:48 AM EST Sexual Orientation Straight 12/21/2024 8: 48 AM EST Obstetrics History Last Filed Vital Signs Vital Sign Reading Time Taken Comments Blood Pressure 124/68 03/03/2025 12:50 PM EDT Pulse 84 03/03/2025 12:50 PM EDT Temperature 35.6 ??C (96 ??F) 03/03/2025 12: 50 PM EDT Respiratory Rate 14 03/03/2025 12:5 0 PM EDT Oxygen Saturation 93% 03/03/2025 12: 50 PM EDT Inhaled Oxygen Concentration - - Weight 80.2 kg (176 lb 14.4 oz) 025 12:50 PM EDT Height 162.6 cm (5' 4 ) 03/03/2025 12:5 0 PM EDT Body Mass Index 30.36 03/03/2025 12:50 PM EDT Plan of Treatment Upcoming Encounters Date Type Department Care Team (Late st Contact Info) Description 04/12/2025 11:30 AM EDT Office Visit Vascular Surgery - [place] [address] [phone] Zbigniew Benson MD [address] [place] [address] 07/05/2025 11:15 AM EDT Office Visit Adult Medicine [address] [phone] Conchis Morales PA [address], [place] Health Maintenance Due Date Last Done Comments Social Influencers of Health Screening 10/19/2022 COVID-19 Vaccine ( season) 2024 12/18/2022, 08/23/2021, 01/12/2021, Additional history exists Hypertension/CHF/CAD Annual BMP Blood Test 12/22/2025 12/22/2024, 10/15/2024, 07/22/2024, Additional history exists Depression Screening 03/03/2026 03/03/2025 Falls Risk Assessment 03/03/2026 03/03/2025, 024 Medicare Annual Wellness Visit 03/03/2026 03/03/2025 Cholesterol Screening (Lipid Panel) 03/03/2030 03/03/2025, 01/21/2024 Osteoporosis Screening (Bone Density Screening) 03/08/2031 03/08/2021, 12/11/2017 DTaP,Tdap,and Td Vaccines (4 - Td or Tdap) 08/19/2034 08/19/2024, 03/17/2014, 01/29/2013 Pneumococcal Vaccine: 50+ Years Completed 09/28/2020, 11/26/2018, 08/18/2009 Zoster Vaccines Completed 12/07/2020, 06/2020, 07/13/2014 RSV Immunization Adult Patients Completed 02/05/2024 Influenza Vaccine Completed 08/19/2024, , 08/25/2022, Additional history exists HIB Vaccines Aged Out No longer eligi ble based on patient's age to complete this topic HPV Vaccines Aged Out No longer eligi ble based on patient's age to complete this topic Hepatitis A Vaccines Aged Out No long er eligible based on patient's age to complete this topic Hepatitis B Vaccines Aged Out No long er eligible based on patient's age to complete this topic IPV Vaccines Aged Out No longer eligi ble based on patient's age to complete this topic MMR Vaccines Aged Out No longer eligi ble based on patient's age to complete this topic Meningococcal ACWY Vaccine Aged Out N o longer eligible based on patient's age to complete this topic Meningococcal B Vaccine Aged Out No l onger eligible based on patient's age to complete this topic RSV Immunization Patients Under 20 months Aged Out No longer eligible based on patient's age to complete this topic Varicella Vaccines Aged Out No longer eligible based on patient's age to complete this topic Medical Devices Implanted Type Area Hitting Coach Device Identifier Shelf Expiration Date Model / Serial / Lot Stent Graft Endovas 8x39mm 7f 80cm - [id number] - [id number] Implanted:Qty: 1 on 12/22/2024 by Zbigniew Besnon MD at [facility] Peripheral Vasc Drug Coated Stents Right: Groin [employer] [id number] 06/07/2027 [id number] / [id number] / Procedures Procedure Name Priority Date/Time Associated Diagnosis Comments LIPID PANEL WITH REFLEX TO DIRECT LDL Routine 03/03/2025 1:20 PM EDT Mixed hyperlipidemia VAS US DUPLEX LOWER EXT ARTERIES BILAT WITH ALISA Routine 02/25/2025 12:53 PM EDT PAD (peripheral artery disease) (CMS/HCC V24) CBC WITH AUTO DIFFERENTIAL Routine 01/15/2025 2:09 PM EST Bleeding CBC AND DIFFERENTIAL Routine 01/15/2025 2:09 PM EST Bleeding XR CHEST 2 VIEWS STAT 01/04/2025 3:54 PM EST Shortness of breath POCT ACTIVATED CLOTTING TIME, KAOLIN Routine 12/22/2024 11:47 AM EST POCT ACTIVATED CLOTTING TIME, KAOLIN Routine 12/22/2024 11:28 AM EST POCT ACTIVATED CLOTTING TIME, KAOLIN Routine 12/22/2024 10:57 AM EST INVASIVE VASCULAR PROCEDURE Routine 12/22/2024 10:34 AM EST PAD (peripheral artery disease) (CMS/HCC V24) Wound of right lower extremity, subsequent encounter CBC WITH AUTO DIFFERENTIAL STAT 12/22/2024 8:28 AM EST ACTIVATED PARTIAL THROMBOPLASTIN TIME STAT 12/22/2024 8:28 AM EST PROTHROMBIN TIME WITH INR STAT 12/22/2024 8:28 AM EST CBC AND DIFFERENTIAL Routine 12/22/2024 8:28 AM EST BASIC METABOLIC PANEL STAT 12/22/2024 8:28 AM EST FALLS RISK ASSESSMENT Routine 05/05/2024 DXA BONE DENSITY STUDY 1+ SITS AXIAL SKEL Routine 03/08/2021 1:56 PM EDT Other specified disorders of bone density and structure, unspecified site from Last 3 Months or Most Recently Relevant to Health Maintenance Results * (ABNORMAL) Lipid panel with reflex to direct LDL (03/03/2025 1:20 PM EDT) Cholesterol 221(H) 0 - 200 mg/dL LAB CHEMISTRY METHOD 03/03/2025 5:42 PM EDT [facility] Triglycerides 177(H) 0 - 150 mg/dL LAB CHEMISTRY METHOD 03/03/2025 5:42 PM [facility] HDL 50 >=40 mg/dL LAB CHEMISTRY METHOD [facility] LDL Calculated 136(H) 0 - 100 mg/dL LAB CHEMISTRY METHOD 03/03/2025 5:42 PM EDT [facility] VLDL Cholesterol Jonny 35.4 mg/dL LAB CHEMISTRY METHOD 03/03/2025 5:[facility] Non HDL Chol. (LDL+VLDL) 171(H) <145 mg/dL LAB CHEMISTRY METHOD 03/03/2025 5:[facility] Chol/HDL Ratio 4.4 0.0 - 4.4 LAB CHEMISTRY METHOD 03/03/2025 5:42 PM [facility] Blood Venous blood specimen / Unknown Venipuncture / Unknown 03/03/2025 1:20 PM EDT 03/03/2025 1:20 PM EDT us Fina Moody MD LAB BLOOD ORDERABLES Final Resul t [facility] [address] [place] [address], [place] [phone] * Vascular US duplex lower extremity arteries bilateral with ALISA (02/25/2025 12:53 PM EDT) Left Dist External Iliac PSV 80 cm/s [facility] Left Prox External Iliac PSV 91 cm/s [facility] Left AT dist sys PSV 35 cm/s [facility] Left AT mid sys PSV 39 cm/s [facility] Left AT prox sys PSV 71 cm/s CV V[facility] LAB Left LIBRARY MEDIA TECHNICIAN prox sys PSV 86 cm/s [facility] LAB Left mid peroneal sys PSV 75 cm/s CV [facility] LAB Left popliteal dist sys PSV 64 cm/s [facility] LAB Left popliteal prox sys PSV 127 cm/s CV [facility] LAB Left PT dist sys PSV 104 cm/s CV [facility] LAB Left PT mid sys PSV 94 cm/s [facility] LAB Left PT prox sys PSV 75 cm/s [facility] LAB Left profunda sys PSV 59 cm/s [facility] Left super femoral dist sys PSV 107 cm/s [facility] Left super femoral mid sys PSV 97 cm/s [facility] LAB Left super femoral prox sys PSV 87 cm/s [facility] Right Dist External Iliac PSV 100 cm/s CV [facility] LAB Right Prox External Iliac PSV 111 cm/s [facility] LAB Right AT dist sys PSV 83 cm/s [facility] LAB Right AT mid sys PSV 74 cm/s [facility] LAB Right AT prox sys PSV 76 cm/s CV VAS LAB Right LIBRARY MEDIA TECHNICIAN prox sys PSV 134 cm/s CV [facility] LAB Right mid peroneal sys PSV 64 cm/s [facility] LAB Right popliteal dist sys PSV 103 cm/s [facility] LAB Right popliteal prox sys PSV 67 cm/s CV [facility] LAB Right PT dist sys PSV 66 cm/s CV [facility] LAB Right PT mid sys PSV 93 cm/s [facility] Right PT prox sys PSV 79 cm/s [facility] LAB Right profunda sys PSV 83 cm/s [facility] Right super femoral dist sys PSV 122 cm/s [facility] Right super femoral mid sys PSV 83 cm/s [facility] Right super femoral prox sys PSV 90 cm/s [facility] Right arm BP 150 mmHg [facility] Left arm BP 140 mmHg [facility] Right posterior tibial 159 mmHg [facility] Right Dorsalis Pedis 152 mmHg [facility] Right ALISA 1.06 [facility] Left posterior tibial 170 mmHg [facility] Left Dorsalis Pedis 152 mmHg [facility] Left ALISA 1.13 [facility] LAB Anatomical Region Laterality Modality Vascular, Abdomen Ultrasound Narrative 02/28/2025 11:27 AM EDT Right: The ALISA is 1.06 which is normal Normal pulse volume waveform at the right ankle. Normal amplitude PPG waveform in the digit. There is moderate calcific atherosclerotic palque in the right lower extremity arteries. There is no significant stenosis. 3-vessel runoff is noted in the right calf. Left: The ALISA is 1.13 which is normal. Normal pulse volume waveform at the left ankle. Normal amplitude PPG waveform in the digit. There is moderate calcific atherosclerotic palque in the left lower extremity arteries. There is no significant stenosis. 3-vessel runoff is noted in the left calf. Right Lower Arterial Duplex The distal external iliac artery has triphasic flow. The common femoral artery has triphasic flow. The profunda femoris artery has triphasic flow. The proximal superficial femoral artery has biphasic flow. The mid superficial femoral artery has triphasic flow. The distal superficial femoral artery has biphasic flow. The popliteal artery has biphasic flow. The anterior tibial artery has biphasic flow. The posterior tibial artery has biphasic flow. The mid peroneal artery has biphasic flow. Left Lower Arterial Duplex The distal external iliac artery has biphasic flow. The common femoral artery has biphasic flow. The profunda femoris artery has biphasic flow. The superficial femoral artery has biphasic flow. The popliteal artery has biphasic flow. The anterior tibial artery has biphasic flow. The posterior tibial artery has biphasic flow. The mid peroneal artery has biphasic flow. Jig Box Operator Details A kaminski scale, color and doppler analysis ultrasound was performed. During the study longitudinal views were obtained. Continuous wave doppler and pulsed wave doppler was performed. Overall the study quality was good. us Zbigniew Benson MD CV VASCULAR PROCEDURES Final Re sult * (ABNORMAL) CBC auto differential (01/15/2025 2:09 PM EST) Only the most recent of2 resultswithin the time period is included. WBC 3.8(L) 4.8 - 10.8 K/mcL LAB HEMETOLOGY METHOD 01/15/2025 4:40 PM [facility] RBC 4.10 3.80 - 4.80 M/mcL LAB HEMETOLOGY METHOD 01/15/2025 4:40 PM [facility] Hemoglobin 12.8 11.5 - 16.0 g/dL LAB HEMETOLOGY METHOD 01/15/2025 4:40 PM [facility] Hematocrit 39.8 35.0 - 47.0 % LAB HEMETOLOGY METHOD 01/15/2025 4:40 PM [facility] MCV 97.5 79.0 - 98.0 FL LAB HEMETOLOGY METHOD 01/15/2025 4:40 PM [facility] MCH 31.4 27.0 - 32.0 pcg LAB HEMETOLOGY METHOD 01/15/2025 4:40 PM [facility] MCHC 32.2 32.0 - 37.0 g/dL LAB HEMETOLOGY METHOD 01/15/2025 4:40 PM [facility] RDW 17.7(H) 11.0 - 15.0 % LAB HEMETOLOGY METHOD 01/15/2025 4:40 PM [facility] Platelets 338 130 - 400 K/mcL LAB HEMETOLOGY METHOD 01/15/2025 4:40 PM [facility] MPV 10.0 7.0 - 11.0 FL LAB HEMETOLOGY METHOD 01/15/2025 4:40 PM [facility] NRBC 0.0 <1.0 % LAB HEMETOLOGY METHOD 01/15/2025 4:40 PM [facility] NRBC Absolute 0.00 <0.10 K/mcL LAB HEMETOLOGY METHOD 01/15/2025 4:40 PM [facility] Neutrophils Relative 52.9 % LAB HEMETOLOGY METHOD 01/15/2025 4:40 PM [facility] Lymphocytes Relative 34.7 % LAB HEMETOLOGY METHOD 01/15/2025 4:40 PM [facility] Monocytes Relative 7.6 % LAB HEMETOLOGY METHOD 01/15/2025 4:40 PM [facility] Eosinophils Relative 2.9 % LAB HEMETOLOGY METHOD 01/15/2025 4:40 PM [facility] Basophils Relative 0.8 % LAB HEMETOLOGY METHOD 01/15/2025 4:40 PM [facility] Immature Granulocytes Relative 1.1 % LAB HEMETOLOGY METHOD 01/15/2025 4:40 PM [facility] Neutrophils Absolute 2.01 1.50 - 7.00 K/mcL LAB HEMETOLOGY METHOD 01/15/2025 4:40 PM [facility] Lymphocytes Absolute 1.32 1.00 - 5.00 K/mcL LAB HEMETOLOGY METHOD 01/15/2025 4:40 PM [facility] Monocytes Absolute 0.29 0.20 - 1.00 K/mcL LAB HEMETOLOGY METHOD 01/15/2025 4:40 PM [facility] Eosinophils Absolute 0.11 0.00 - 0.50 K/mcL LAB HEMETOLOGY METHOD 01/15/2025 4:40 PM [facility] Basophils Absolute 0.03 0.00 - 0.20 K/[facility] HEMETOLOGY METHOD 01/15/2025 4:40 PM EST [facility] Immature Granulocytes Absolute 0.04(H) 0.00 - 0.03 K/[facility] LAB HEMETOLOGY METHOD 01/15/2025 4:40 PM EST [facility] Blood Venous blood specimen / Unknown Venipuncture / Unknown 01/15/2025 2:09 PM EST 01/15/2025 2:09 PM EST us Fina Moody MD LAB BLOOD ORDERABLES Final Resul t [facility] [address] [place] [address], [place] [phone] * XR Chest 2 Views (01/04/2025 3:54 PM EST) Anatomical Region Laterality Modality Body Radiographic Zohreh ging 01/04/2025 4:01 PM EST Impressions 01/04/2025 4:02 PM EST FINDINGS/IMPRESSION: Hypoventilatory examination with crowding of bronchovascular structures and peripheral reticulation compatible with chronic interstitial changes. ??There is no consolidation or effusion. ??There is no pneumothorax. ??Stable heart size. ??Dual lead left pacer. ??Age-indeterminate mid thoracic compression deformity. -------- FINAL REPORT -------- Dictated By: Christine Villalpando Dictated Date: 01/04/2025 16:01 ET Assigned Physician: Christine Villalpando Reviewed and Electronically Signed By: Christine Villalpando Signed Date: 01/04/2025 16:02 ET Workstation ID: [id number] Transcribed By: Self Edit Transcribed Date: 01/04/2025 16:01 ET Narrative 01/04/2025 4:02 PM EST XR CHEST 2 VIEWS INDICATION: sob TECHNIQUE: XR CHEST 2 VIEWS COMPARISON: 03/23/2019 Procedure Note Christine Villalpando MD - 01/04/2025 XR CHEST 2 VIEWS INDICATION: sob TECHNIQUE: XR CHEST 2 VIEWS COMPARISON: 03/23/2019 IMPRESSION: FINDINGS/IMPRESSION: Hypoventilatory examination with crowding ofbronchovascular structures and peripheral reticulation compatible withchronic interstitial changes. There is no consolidation or effusion.There is no pneumothorax. Stable heart size. Dual lead left pacer.Age-indeterminate mid thoracic compression deformity. -------- FINAL REPORT -------- Dictated By: Christine Villalpando Dictated Date: 01/04/2025 16:01 ET Assigned Physician: Christine Villalpando Reviewed and Electronically Signed By: Christine Villalpando Signed Date: 01/04/2025 16:02 ET Workstation ID: [id number] Transcribed By: Self Edit Transcribed Date: 01/04/2025 16:01 ET us Zbigniew Benson MD IMG XR PROCEDURES Final Result * (ABNORMAL) POCT activated clotting time,kaolin (12/22/2024 11:47 AM EST) Only the most recent of3 resultswithin the time period is included. Activated Clotting Time Kaolin 182(H) 74 - 137 sec 12/22/2024 2:13 PM EST [facility] Blood Arterial blood specimen / Unknown 12/22/2024 11:47 AM EST 12/22/2024 2:19 PM EST us Zbigniew Benson MD LAB POINT OF CARE TE ST DOCKED DEVICE UNSOLICITED RESULTS Final Result [facility] [address] [place] [address], [place] [phone] * ANGIOGRAPHY LOWER EXT RIGHT (12/22/2024 10:34 AM EST) Anatomical Region Laterality Modality X-Ray Angiograph y Narrative 12/24/2024 7:49 AM EST Per Op Note Study Details Per Op Note Clinical Background Per Op Note Procedure Details Per Op Note us Zbigniew Benson MD CV INVASIVE VASCULAR PROCEDURES Final Result * Activated partial thromboplastin time (12/22/2024 8:28 AM EST) Pathologist [facility] aPTT 32.4 24.1 - 39.3 sec LAB COAGULATION METHOD 12/22/2024 8:51 AM EST [facility] Blood Venous blood specimen / Unknown Venipuncture / Unknown 12/22/2024 8:28 AM EST 12/22/2024 8:41 AM EST us Zbigniew Benson MD LAB BLOOD ORDERABLES Final Resu lt Performing Organization Address [facility]/ZIP Co de Phone Number [facility] [address] [place] [address], [place] [phone] * Prothrombin time with INR (12/22/2024 8:28 AM EST) [facility] Protime 12.5 10.6 - 13.9 sec LAB COAGULATION METHOD 12/22/2024 8:51 AM EST [facility] INR 1.0 LAB COAGULATION METHOD 12/22/2024 8:51 AM [facility] Blood Venous blood specimen / Unknown Venipuncture / Unknown 12/22/2024 8:28 AM EST 12/22/2024 8:41 AM EST us Zbigniew Benson MD LAB BLOOD ORDERABLES Final Resu lt Performing Organization Address [facility]/ZIP Co de Phone Number [facility] [address] [place] [address], [place] [phone] * (ABNORMAL) Basic metabolic panel (12/22/2024 8:28 AM EST) [facility] Sodium 139 133 - 145 mmol/L LAB CHEMISTRY METHOD 12/22/2024 9:01 AM [facility] Potassium 3.8 3.5 - 5.5 mmol/L LAB CHEMISTRY METHOD 12/22/2024 9:01 AM EST [facility] Chloride 104 96 - 110 mmol/L LAB CHEMISTRY METHOD 12/22/2024 9:01 AM [facility] CO2 30 21 - 32 mmol/L LAB CHEMISTRY METHOD 12/22/2024 9:01 AM [facility] Anion Gap 5 3 - 11 LAB CHEMISTRY METHOD 12/22/2024 9:01 AM [facility] Glucose 105(H) 70 - 100 mg/dL LAB CHEMISTRY METHOD 12/22/2024 9:01 AM [facility] BUN 18 5 - 25 mg/dL LAB CHEMISTRY METHOD 12/22/2024 9:01 AM [facility] Creatinine 1.01 0.50 - 1.10 mg/dL LAB CHEMISTRY METHOD 12/22/2024 9:01 AM [facility] eGFR 56(L) >=60 mL/min/1. 73m2 LAB CHEMISTRY METHOD 12/22/2024 9:01 AM [facility] Comment:Calculation based on the??Chronic Kidney Disease Epidemiology Collaboration (CKD-EPI) equation refit??without adjustment for race. BUN/Creatinine Ratio 17.8 LAB CHEMISTRY METHOD 12/22/2024 9:01 AM [facility] Calcium 9.5 8.5 - 10.5 mg/dL LAB CHEMISTRY METHOD 12/22/2024 9:01 AM [facility] Blood Venous blood specimen / Unknown Venipuncture / Unknown 12/22/2024 8:28 AM EST 12/22/2024 9:01 AM EST us Zbigniew Benson MD LAB BLOOD ORDERABLES Final Resu lt [facility] [address] [place] [address], * Falls Risk Assessment (05/05/2024) [facility] Falls Risk Assessment Abstracted Historical Provider HEALTH MAINTENANCE Final Result * DXA BONE DENSITY STUDY 1+ SITS AXIAL SKEL (03/08/2021 1:56 PM EDT) Anatomical Region Laterality Modality Bone Densitometr y 01/27/2021 10:0 3 AM EDT Narrative 03/08/2021 5:00 PM EDT BONE DENSITY ? Lumbar Spine T-score is -0.5 ?? (SD relative to 20-29 y/o adult) Z-score is +2.0 ??(SD relative to age matched peers) This is normal by criteria defined by the WHO. Left Hip T-score is -0.3 Z-score is +1.9 This is normal by criteria defined by the WHO. Comparison exam(s): no statistically significant change in the bone density of the lumbar spine when compared to most recent bone density examination ?? Confidence level is +/-95%. Impression: Based on the World Health Organization criteria, Mundo Vasquez should be classified as having normal bone density. The [facility] Department of Internal Medicine recommends using National Osteoporosis Foundation (NOF) guidelines in treatment decisions related to osteoporosis. NOF guidelines suggest considering treatment for postmenopausal women and men aged 50 or older presenting with the following: History of hip or vertebral fracture. T-score less than or equal to -2.5 (DXA) at the femoral neck, total hip, or spine, after appropriate evaluation to exclude secondary causes. Low bone mass (T-score between -1.0 and -2.5 at the femoral neck or spine) AND a 10-year probability of a hip fracture greater than or equal to 3% OR a 10-year probability of a major osteoporosis-related fracture greater than or equal to 20% based on the [place]-adapted WHO algorithm Please note that all treatment decisions require clinical judgment and consideration of individual patient factors, including patient preferences, co-morbidities, previous drug use, risk factors not captured in the FRAX model (e.g., frailty, falls, vitamin D deficiency, increased bone turnover, interval significant decline in bone density) and possible under- or over-estimation of fracture risk by FRAX. Procedure Note Latonia Del Cid MD - 10/30/2022 BONE DENSITY Lumbar Spine T-score is -0.5 (SD relative to 20-29 y/o adult) Z-score is +2.0 (SD relative to age matched peers) This is normal by criteria defined by the WHO. Left Hip T-score is -0.3 Z-score is +1.9 This is normal by criteria defined by the WHO. Comparison exam(s): no statistically significant change in the bonedensity of the lumbar spine when compared to most recent bone densityexamination Confidence level is +/-95%. Impression: Based on the World Health Organization criteria, Mundo Vasquez shouldbe classified as having normal bone density. The [facility] Department of Internal Medicine recommendsusing National Osteoporosis Foundation (NOF) guidelines in treatmentdecisions related to osteoporosis. NOF guidelines suggest consideringtreatment for postmenopausal women and men aged 50 or older presentingwith the following: History of hip or vertebral fracture. T-score less than or equal to -2.5 (DXA) at the femoral neck, total hip,or spine, after appropriate evaluation to exclude secondary causes. Low bone mass (T-score between -1.0 and -2.5 at the femoral neck or spine)AND a 10-year probability of a hip fracture greater than or equal to 3% ORa 10-year probability of a major osteoporosis-related fracture greaterthan or equal to 20% based on the [place]-adapted WHO algorithm Please note that all treatment decisions require clinical judgment andconsideration of individual patient factors, including patientpreferences, co-morbidities, previous drug use, risk factors not capturedin the FRAX model (e.g., frailty, falls, vitamin D deficiency, increasedbone turnover, interval significant decline in bone density) and possibleunder- or over-estimation of fracture risk by FRAX. us Ting Gregory LUNA DXA PROCEDURES Final Result from Last 3 Months or Most Recently Relevant to Health Maintenance [place] [address] MEDICARE [facility] Advance Directives Documents on File Type Date Recorded Patient Senior Care Assistant Expl anation Health Care Decision (hx) 06/12/2022 AD WALKER DIRECTIVE Health Care Decision (hx) 06/12/2022 AD WALKER DIRECTIVE Health Care Decision (hx) 06/12/2022 AD WALKER DIRECTIVE Health Care Decision (hx) 06/12/2022 AD WALKER DIRECTIVE Health Care Decision (hx) 06/12/2022 AD WALKER DIRECTIVE * Full Code - Default (Latest Code Status on File) Date Activated Date Inactivated Comments 12/22/2024 11:00 AM 12/22/2024 7:41 PM This is ord er is used when code status has not been discussed with the patient, or code status is otherwise unknown/unconfirmed To update the patient's code status, place a code status order. Do not modify or discontinue any currently active code status orders. * Full Code - Default Date Activated Date Inactivated Comments 12/22/2024 7:54 AM 12/22/2024 11:00 AM This is ord er is used when code status has not been discussed with the patient, or code status is otherwise unknown/unconfirmed To update the patient's code status, place a code status order. Do not modify or discontinue any currently active code status orders. Care Teams Slab Worker Relationship Specialty Start Date End Date Fina Moody MD [address] [place] [address] PCP - General Internal Medicine 08/15/18
--- OUTSIDE RECORDS SUMMARY | 2025-03-16 13:07 | XMS_ITS ---
Author Organization [facility] Jamil Grace Address [address] [facility] [place] [address] Care Team Providers Care Senior Media Buyer Name Role Phone Fina Moody Primary Care Provider Steven Lynn Unavailable [phone] Allergies Allergen (clinical drug ingredient) Drug/Non Drug Allergy documented on EMR Reaction Allergy Type Onset Date Status morphine Morphine very sick Drug Allergy Active REASON FOR VISIT At Risk Footcare, Painful Nail(s) aggrevated by shoes and causing difficulty standing/walking. Medications Medication SIG (Take, Route, Frequency, Duration) Notes Start Date End Date Status Cephalexin 500 MG 1 capsule Orally asiya ry 8 hrs for 10 days Not-Taking Simvastatin 20 MG 1 tablet in the evening Orally Once a day for 30 day(s) Active Prevagen Active Iodosorb 0.9 % as directed External ly Apply to ulceration daily with dry sterile dressing for 30 days 06/08/2024 Active Triazolam 0.25 MG 1 tablet at bedtime as needed Orally Once a day Active Gabapentin 300 MG 1 capsule Orally Onc e a day for 30 day(s) Active Esbriet 267 MG 1 tablet with food Orally Three times a day for 7 day(s) Active Multivitamin Active hydroCHLOROthiazide 25 MG 1 tablet in th e morning Orally Once a day for 30 day(s) Active Omeprazole 20 MG 1 capsule 30 minutes before morning meal Orally Once a day for 30 day(s) Active eliquis 5 mg Active Doxepin HCl 10 MG 1 capsule at bedtime Orally every other night Active Social History Tobacco Use: Social History Observation Description Date Details (start date - stop date) Never Smoker NA - NA Tobacco Use/Smoking Question Answer Notes Are you a: nonsmoker Additional Findings: Tobacco Non-User Current no n-smoker Alcohol Screen Question Answer Notes Did you have a drink containing alcohol in the p ast year? No Points 0 Interpretation Negative Tobacco use other than smoking: Question Answer Notes Are you an other tobacco user? No Vital Signs Height 5ft 4.5in in 10/22/2024 Weight 183 lbs 10/22/2024 BMI 30.92 kg/m2 10/22/2024 Blood pressure systolic 120 mm Hg 10/22/20 24 Blood pressure diastolic 80 mm Hg 024 Procedures Procedure Date Ordered Date Performed Result Body Sit e 09375-CIHRTAI NAIL, 1-5 10/22/2024 N/A 45401-XCEI SKIN LESIONS, OVER 4 10/22/2024 N/A [id number] DYSTROPHIC NAILS ANY # 10/22/2024 N/A Encounters Encounter Location Date Provider Diagnosis [facility] [address] [address] 10/22/2024 Steven Faey Atherosclerosis of [place] artery of both lower extremities, with unspecified presence of clinical manifestation I70.203 ; Tinea unguium B35.1 ; Pain in right toe(s) M79.674 and Pain in left toe(s) M79.675 Assessments Encounter Date Diagnosis (ICD Code) Assessment Notes Treatment Notes Treatment Clinical Notes Section Notes 10/22/2024 Atherosclerosis of [place] artery of both lower extremities, with unspecified presence of clinical manifestation (ICD-10 - I70.203) 10/22/2024 Tinea unguium (ICD-10 - B35.1) 10/22/2024 Pain in right toe(s) (ICD-10 - M79.674) 10/22/2024 Pain in left toe(s) (ICD-10 - M79.675) Plan Of Treatment Pending Test Test Name Order Date 36921-[id number] NAIL, 1-5 10/22/2024 42444-VEMP SKIN LESIONS, OVER 4 10/22/20 24 [id number] DYSTROPHIC NAILS ANY # Next Appt Details Follow Up: prn, Reason: Provider Name:Steven Faye , 04/21/2025 02:45:00 PM, [address] [facility], [place] [address], [place], [address], Procedure Notes * Category Sub-Category Detail Notes [...] risk. Therefore, the benign hyperkeratotic lesions, ( 6) in total, locations as stated and described in the exam ( Medial plantar , IPJ , TA , Plantar, IPJ, T5, SUB MTH (s) , 1 , B/L , Plantar Heel(s), Left, Posterior Heel(s) , Right), were pared, and/or cut utilizing a sterile 15 blade, tissue nippers, and/or power dremel instrumentation by the physician of record - 58359, Q8 Debride Nails 1-5 Procedure: Due to the cli nical pathology outlined in the exam findings, performance of this nail treatment is medically necessary as its management by an unskilled/untrained nonprofessional would put this patients foot and overall health at risk. Therefore, debridement to affected nail(s), as described in exam ( T4 , T7 , T9), was performed exclusively by the physician of [...] necessary to maintain effective symptomatic relief - 36475 Nail Reduction Nail Reduction (-27) Trimming o [...] ( TA, T1, T2, T3, T5, T6, T8), were debrided by the phisician of record to reduce/remove overall nail length and girth, by manual and electrical means with use of a nail nipper and/or dremel, to more viable healthy nail plate or bed tissue - G0127, Q8 Progress Notes * Mundo BAJWADOB:[birth year] (78 yo F)Acc No.[id number]:10/22/2024 Progress Note Patient:?Mundo BAJWA Provider:?Steven Faye DPM :1945???Age:78 Y???Sex:Female D ate:10/22/2024 Address:[address] [place], [place] [id number] Pcp:Fina Moody Subjective: * Chief Complaints: * ???At Risk FootcarePainful N ail(s) aggrevated by shoes and causing difficulty standing/walking. * HPI: ???At Risk footcare:?Pt States Last PCP Visit:?Date?10/07/2024 * ROS:?General/Constitutional:?Nausea?denies.?Vomiting?denies.?Hunger Thirst?denies.?Loss appetite?denies.?Chills?denies.?Fatigue?denies.?Fever?denies.?Night Sweats?denies.?Unexplained weight loss?denies.?Unexplained weight gain?denies.?HEENTM:?Dentures?denies.?Dizziness?denies.?Glasses/contacts?admits.?Retinopathy?de nies.?Blurred/double vision?denies.?TMJ?denies.?Discharge/drainage?denies.?Implants?denies.?Sore throat?denies.?Dental implants?denies.?Hard of hearing ?denies.?Difficulty chewing/swallowing/speaking?denies.?Nose bleeds?denies.?Sore mouth?denies.?Respiratory:?On Oxygen?denies.?Pneumonia/pleurisy?denies.?Bronchitis?denies.?Emphysema?denies.?C oughing?denies.?Cough blood?denies.?Shortness of breath?denies.?Wheezing?denies.?Cardiovascular:?Pacemaker?denies.?MVP?denies.?WPW?denies.?CHF?denies.?Heart attack?denies.?Septal defect?denies.?Rapid beat?denies.?Chest pain ?denies.?Atrial Fib.?denies.?Murmur/Palpitations?denies.?Gastrointestinal:?Hemorrhoids?denies.?Stomach/Abdominal pain?denies.?Dark blood stool?denies.?Irritable bowel ?denies.?Constipation?denies.?Diarrhea?denies.?Hematology:?Swelling?admits.?Clots?denies.?Varicose Veins?denies.?Bruising?denies.?Bleeding problem?denies.?Genitourinary:?Blood urine?denies.?Frequent/Painfu/urination/bladder control?denies.?Kidney stones?denies.?Infection (UTI)?denies.?Nephropathy?denies.?sex trans dis (STD)?denies.?Prostate?denies.?Musculoskeletal:?Hammertoes?denies.?Bunions?denies.?Back Pain?denies.?Muscle Cramps/ Resting?denies.?Muscle cramps / walking?denies.?Generalized aches and pains?denies.?Weakness?denies.?Integ.:?[place]?denies.?Scars?denies.?Corns/calluses?admits.?Ingrown nails?denies.?Painful nails?denies.?Open Sores?denies.?Rashes?denies.?Neurologic:?Difficulty sleeping?denies.?Brain disorder?denies.?Numbness?admits.?Balance trouble?denies.?Confusion?denies.?Fainting/blackouts?denies.?Tingling?admits, bilateral lower extremities, [...] high blood pressure. * Social History:?Tobacco Use:?Tobacco Use/Smoking?Are you a:?nonsmoker ?Additional Findings: Tobacco Non-User?Current non-smoker ?Tobacco use other than smoking?Are you an other tobacco user??No ???Drugs/Alcohol:?Drugs?Have you used drugs other than those for medical reasons in the past 12 months??No ?Alcohol Screen?Did you have a drink containing alcohol in the past year??No ?Points?0 ?Interpretation?Negative ???Miscellaneous:?Caffeine: yes, soda- 2 glasses. ?Children: yes. ?Exercise: no. ?Marital status: . ?Occupation: Retired. * Medications:?TakingDoxepin H Cl 10 MG Capsule [...] 4.5in, Wt:18 3, BMI: 30.92, Shoe size:7W, BP:120/80mm Hg, Ht-cm: 162.56 cm, Wt-k.01 kg. * Examination: ???Vascular: ?DP PULSES(B):? 0/4, B/L.?PT PULSES(B):? 0/4, B/L.?CAPILLARY FILL TIME:? delayed, all digits, B/L.?TROPHIC CONDITION-TEXTURE/ELASTICITY/TURGOR/HAIR GROWTH(B):? decreased,?with sparse to absent hair growth, B/L.?TEMPERTURE GRADIENT(C):? decreased, cool to cool, proximal to distal, B/L.?PIGMENTATION:?mottled, B/L.?EDEMA(C):?1/4 , pitting , without aching pain , B/L , Leg(s).?CLAUDICATION(C):?denies, B/L.?REST PAIN:?denies, B/L.?Nails: ?NAILS are:?Elongated, overgrown, dystrophic, lytic, greater than 3mm thick, discolored and friable with crumbly malodorous subungual debris, with dull pain on palpation , T4 , T7 , T9, all other nails not described with characteristics as possessing mycosis are elongated, overgrown, and dystrophic ( TA, T1, T2, T3, T5, T6, T8).?Dermatologic: ?SKIN FINDINGS:?Skin exam reveals Keratotic lesion(s) located at , Medial plantar , IPJ , TA , Plantar, IPJ, T5, SUB MTH (s) , 1 , B/L , Plantar Heel(s), Left, Posterior Heel(s) , Right.? Assessment: * Assessment: 1.?Tinea unguium - B35.1???2 .?Atherosclerosis of [place] artery of both lower extremities, with unspecified presence of clinical manifestation - I70.203 (Primary)???3.?Pain in right toe(s) - M79.674???4.?Pain in left toe(s) - M79.675??? Plan: * Treatment: 2.?Tinea unguium?Procedure: 11177-AQPYTTI NAIL, 1-5 * Procedures:?Debride Nails 1-5:?Procedure:?Due to the clinical pathology outlined in the exam findings, performance of this nail treatment is medically necessary as its management by an unskilled/untrained nonprofessional would put this patients foot and overall health at risk. Therefore, debridement to affected nail(s), as described in exam (?T4?,?T7?,?T9), was performed exclusively by the physician of [...] necessary to maintain effective symptomatic relief - 23001.?Keratoma Treatment:?Parring or Cutting of Benign Hyperkeratotic Lesion(s)?(-57) More than 4 Lesions - Due to the at risk nature of the patients medical condition as documented in the exam findings, performance of this keratoderma treatment is medically necessary as its management by an unskilled/untrained nonprofessional would put this patients foot and overall health at risk. Therefore, the benign hyperkeratotic lesions, ( 6) in total, locations as stated and described in the exam (??Medial plantar?,?IPJ?,?TA?,?Plantar,?IPJ,?T5,?SUB MTH (s)?,?1?,?B/L?,?Plantar Heel(s),?Left,?Posterior?Heel(s)?,?Right), were pared, and/or cut utilizing a sterile 15 blade, tissue nippers, and/or power dremel instrumentation by the physician of record - 64349, Q8.?Nail Reduction:?Nail Reduction?(-27) Trimming of all dystrophic [...] ( TA, T1, T2, T3, T5, T6, T8), were debrided by the phisician of record to reduce/remove overall nail length and girth, by manual and electrical means with use of a nail nipper and/or dremel, to more viable healthy nail plate or bed tissue - G0127, Q8.? * Procedure Codes:?G0127 CHRISTIANA ING DYSTROPHIC NAILS ANY #, Modifiers: XS , [id number] DEBRIDE NAIL, 1-5, Modifiers: XS 44841 TRIM SKIN LESIONS, OVER 4, Modifiers: XS , Q8 * Follow Up:?prn * Images: * Sign off status: Completed true * Provider:?Steven Faye DPM Date:?2023 Generated for Janiya kuhn/Darby/Aggie on:?03/16/2025 01:06 PM EDT History and Physical Notes * HPI (History of Present Illness) Category Sub-Category Detail Notes Category Not es At Risk footcare Pt States Last PCP Visit: Date: 4 Examination Category Sub-Category Detail Notes Category Not [...] ( TA, T1, T2, T3, T5, T6, T8)
== END 2025-03-16 11:46 | disposition home or self-care (01) ==
LOC: HO.HOS 11:16
PROVIDERS: PCP Internal Medicine; Visit Provider Orthopaedic Surgery
DX: M25.562 Pain in left knee (principal); Z96.652 Presence of left artificial knee joint
CPT/HCPCS: 99213; G2211

== ENCOUNTER → 2025-03-16 11:17 | Outpatient (BNV) | payer MEDICARE, SELFPAY | PROVIDERS: Visit Provider Radiology Diagnostic Radiology | DX: T84.033A Mechanical loosening of internal left knee prosthetic joint, initial encounter (principal) | CPT/HCPCS: 73562 ==

== ENCOUNTER 2025-09-21 14:25 | Outpatient (AMB) | payer MEDICARE, SELFPAY ==
--- OUTSIDE RECORDS SUMMARY | 2024-10-19 08:00 | XMS_ITS ---
Author Organization [facility] erasmo [place] Address [address] [place] [address] Care Team Providers Care Bottle Capper Name Role Phone Fina Moody Primary Care Provider UnavailSteven Hope Unavailable [phone] Encounters Encounter Location Date Provider Diagnosis [facility] [address] [place] [id number] 10/19/2024 Steven Faye Plan Of Treatment Next Appt Details Provider Name:Steven Faye , 10/14/2025 01:00:00 PM, [address] [address], [place], [address], Progress Notes * Mundo BAJWADOB:[birth year] (79 yo F)Acc No.[id number]:10/19/2024 Progress Note Patient: Santosh ANTONIO Mundo Provider: Aurea Faye DPM :1945 A ge:78 Y S ex:Female Date:10/19/2024 Address:[address], [place] Pcp:Fina Moody Subjective: * Chief Complaints: * * Medical History: Objective: * Vitals: Assessment: Plan: * Treatment: * Images: * The named appointment provid er may or may not be the originator of this progress note, and it is not deemed complete until electronically signed by the appointment provider. Sign off status: Pending * Provider: Aurea Faye DPM Date: 12/20/2023 Generated for Janiya kuhn/Darby/Aggie on: 11/21/2024 04:08 PM EST
--- OUTSIDE RECORDS SUMMARY | 2025-09-15 23:59 | XMS_ITS | Continuity of Care Document ---
Author Organization [facility] Address [address] [place] [address] Care Team Providers Care [employer] Truck Driver Name Role Phone Fransisco SOLER, Fina Mark Primary Care Physician Encounter [facility] Date(s): 08/16/25 - 09/15/25 [facility] [address] [place] [address] Encounter Type: Triage Allergies, Adverse Reactions, Alerts Substance Criticality Severity Reaction Reaction Severity Status morphine Unable to assess criticality Persistent Moderate n/v Active Medications acetaminophen 325 mg oral tablet 650 mg, By Mouth, Every 4 hours, Refills 0, Maintenance, 12/25/24 8:54:00 AM EST, Partial fill upon patient request if the prescription is for a schedule II opioid drug. Start Date: 12/25/24 Status: Ordered Medication Dispense Status: Completed Total Allowed Fills: 1 Fills Dispensed: 0 docusate sodium 100 mg oral capsule 1 capsule = 100 mg, By Mouth, 2 times a day, # 20 capsule, 0 Refills, Maintenance, 12/25/24 8:54:00 AM EST, Capsule, [facility]/pharmacy #[id number], Partial fill upon patient request if the prescription is for a schedule II opioid drug., 160, cm, 12/25/24 7:27:00 EST, Height, 90.7, kg, 12/23/24 2:13:00 EST, DryWeight Start Date: 12/25/24 Status: Ordered Medication Dispense Status: Completed Quantity: 20.0 Unit: capsule Total Allowed Fills: 1 Fills Dispensed: 0 doxepin 10 mg oral capsule 1 capsule = 10 mg, By Mouth, Daily at bedtime, PRN Insomnia, # 270 capsule, 0 Refills, Maintenance,01/06/20 8:26:00 AM EST, Capsule Start Date: 01/06/20 Status: Ordered Medication Dispense Status: Completed Quantity: 270.0 Unit: capsule Total Allowed Fills: 1 Fills Dispensed: 0 Eliquis 5 mg oral tablet 1 tablet = 5 mg, By Mouth, 2 times a day, # 180 tablet, 3 Refills, Maintenance, 10/30/22 10:55:00 AM EST, Tablet, [facility], Partial fill upon patient request if the prescription is for a schedule II opioid drug., 161, cm, 07/17/22 9:34:00 EDT, Height Start Date: 10/30/22 Stop Date: 10/25/23 Status: Ordered Medication Dispense Status: Completed Quantity: 180.0 Unit: tablet Total Allowed Fills: 4 Fills Dispensed: 0 Esbriet 267 mg oral capsule 3 capsule = 801 mg, By Mouth, 3 times a day, for 30 days, with food, J84.112, # 270 capsule, 11 Refills, Hard Stop 06/18/26 11:39:00 AM EDT, 06/23/25 11:39:00 AM EDT, Capsule, [facility]/pharmacy #[id number], Partial fill upon patient request if the prescription is for a schedule II opioid drug., 160, cm, 04/29/2512:49:00 EDT, Height, 90.7, kg, 12/23/24 2:13:00 EST, Dry Weight Start Date: 06/23/25 Stop Date: 06/18/26 Status: Ordered Medication Dispense Status: Completed Quantity: 270.0 Unit: capsule Total Allowed Fills: 12 Fills Dispensed: 0 Esbriet 267 mg oral capsule 3 capsule = 801 mg, By Mouth, 3 times a day, with food, J84.112, # 270 capsule, 11 Refills, Maintenance, 06/30/25 1:49:00 PM EDT, Capsule, [facility], Partial fill upon patient request if the prescription is for a schedule II opioid drug., 3 capsule By Mouth 3 times a day,x30 days,Instr:with food, J84.112, 160, cm, 04/29/25 12:49:00 EDT, Height, 90.7, kg, 12/23/24 2:13:00 EST, Dry Weight Start Date: 06/30/25 Stop Date: 06/25/26 Status: Ordered Medication Dispense Status: Completed Quantity: 270.0 Unit: capsule Total Allowed Fills: 12 Fills Dispensed: 0 gabapentin 300 mg oral capsule 300 mg, 1, capsule, By Mouth, 2 times a day, # 60 capsule, Refills 0, Tot. Refills 0, Maintenance, 01/13/20 7:59:00 AM EST, Print Requisition Start Date: 01/13/20 Status: Ordered Medication Dispense Status: Completed Quantity: 60.0 Unit: capsule Total Allowed Fills: 1 Fills Dispensed: 0 hydrochlorothiazide 25 mg oral tablet 25 mg, 1, tablet, By Mouth, Daily, # 30 tablet, Refills 0, Maintenance, 04/18/22 12:45:00 PM EDT, Partial fill upon patient request if the prescription is for a schedule II opioid drug. Start Date: 04/18/22 Status: Ordered Medication Dispense Status: Completed Quantity: 30.0 Unit: tablet Total Allowed Fills: 1 Fills Dispensed: 0 omeprazole 20 mg oral enteric coated capsule 1 capsule = 20 mg, By Mouth, Daily in AM, # 30 capsule, 0 Refills, Maintenance, 08/10/19 4:24:12 PM EDT, EC Capsule Start Date: 08/10/19 Status: Ordered Medication Dispense Status: Completed Quantity: 30.0 Unit: capsule Total Allowed Fills: 1 Fills Dispensed: 0 Plavix 75 mg oral tablet 75 mg, 1, tablet, By Mouth, Daily, # 30 tablet, Refills 5, Maintenance, 12/25/24 8:56:00 AM EST, Partial fill upon patient request if the prescription is for a schedule II opioid drug. Start Date: 12/25/24 Status: Ordered Medication Dispense Status: Completed Quantity: 30.0 Unit: tablet Total Allowed Fills: 1 Fills Dispensed: 0 simvastatin 20 mg oral tablet 20 mg, 1, tablet, By Mouth, Daily at bedtime, # 30 tablet, Refills 0, Maintenance, 08/10/19 4:23:36 PM EDT Start Date: 08/10/19 Status: Ordered Medication Dispense Status: Completed Quantity: 30.0 Unit: tablet Total Allowed Fills: 1 Fills Dispensed: 0 triazolam 0.25 mg oral tablet 1 tablet = 0.25 mg, By Mouth, Daily at bedtime, PRN for sleep, 0 Refills, Maintenance, 09/23/19 2:50:04 PM EST, Tablet Start Date: 09/23/19 Status: Ordered Medication Dispense Status: Completed Total Allowed Fills: 1 Fills Dispensed: 0 Problem List Condition Confirmation Course Effective Dates Status Health St atus Informant Anxiety Confirmed Active Cardiac pacemaker Confirmed Active Chronic respiratory failure with hypoxia Confirmed 10/06/19 Active Depression Confirmed Active SOB (shortness of breath) Confirmed Active Dyspnea on exertion Confirmed Active Pulmonary fibrosis Confirmed Active GERD (gastroesophageal reflux disease) Confirmed Active Hypertension Confirmed Active Chronic interstitial lung disease Confirmed Active Mitral valve prolapse Confirmed Active Obese class I Confirmed Active Obstructive sleep apnea Confirmed Active Paroxysmal atrial fibrillation Confirmed Active Prediabetes Confirmed Active Social History Social History Type Response Smoking Status Never (less than 100 in lifetime) entered on: 02/26/24 Sex Sex Representation Female (finding) Patient Care team information Care Team Personnel Name: Christine Valera RN Position: S RN Member Role: Primary Care Nurse Name: Kerrie Ramírez RN Position: S RN Member Role: Primary Care Nurse Name: Fina Moody MD Position: [facility] Physician - Primary Care Member Role: PCP Address: [address] [place] [address] Telecom: Name: Dariela Celestin RN Position: S RN Member Role: Primary Care Nurse Care Team Related Persons Name: STACEY REAL Name: NINO BAJWA Insurance Providers Guarantor name: ROYAL BAJWA Health Plan Information #: 1 Payer: MEDICARE B Payer Identifier: NA Member Number: [id number] Group Number: NA Subscriber Identifier: NA Relationship to Subscriber: self Coverage Type: NA Coverage Verification Date: NA Telecom: NA Address: Health Plan Information #: 2 Payer: [employer] SECONDARY ONLY Payer Identifier: NA Member Number: [id number] Group Number: NA Subscriber Identifier: NA Relationship to Subscriber: self Coverage Type: Medicare Other Coverage Verification Date: NA Telecom: NA Address:
--- NOTE | 2025-09-21 15:00 | A.OFFVIS_ITS ---
Intake Visit Reasons: 6m PN Allergies morphine Allergy (Severe, Verified 09/21/25 15:04) Nausea and Vomiting Medication List - Last Reconciled 09/21/25 by Christine Willard CNP acetaminophen 650 mg (2 x 325 mg) PO Q6H PRN 30 days amitriptyline 20 mg (2 x 10 mg) PO BEDTIME 90 days amoxicillin 2,000 mg (4 x 500 mg) PO ONCE 1 day apixaban (Eliquis) 5 mg PO BID clopidogrel 75 mg PO DAILY doxepin 10 mg PO BEDTIME gabapentin 300 mg orally 1 capsule twice a day and 2 capsules at bedtime; 90 days hydrochlorothiazide 25 mg PO DAILY multivitamin 1 tab PO DAILY omeprazole 20 mg PO BID pirfenidone (Esbriet) 801 mg PO TID sennosides (Senna Lax) 17.2 mg (2 x 8.6 mg) PO BEDTIME PRN 30 days simvastatin 20 mg PO BEDTIME triazolam 0.25 mg PO BEDTIME PRN 30 days walker Folding front wheeled walker HPI Comments Details: Pain in feet was generally controlled with gabapentin and amitriptyline. She ran out of amitriptyline last week and pain in feet was much worse without medication. Walking with cane, no recent falls. She was still having trouble falling asleep. Alternating between triazolam and doxepin every other night, triazolam works better and able to sleep through night. Also uses OTC MidNite sleep aid. Had L TKR 03/2024. Circulation is okay. RLS is better. Feels she is off balance. Has not been using CPAP recently. Previously, would use CPAP for 4 hours, hard to keep on. Tried Unisom and melatonin in the past, does not work anymore. Using a sound machine also. Has primary insomnia. [facility] Medical History (Updated 09/21/25 @ 15:03 by Christine Willard CNP) Osteoarthritis of left knee Insomnia Peripheral neuropathy A-fib History of ectopic Personal history of COVID-19 (~09/2021) DJD (degenerative joint disease) Osteoarthritis Hiatal hernia GERD (gastroesophageal reflux disease) Pancreatic cyst RLS (restless legs syndrome) LUL (obstructive sleep apnea) Depression Anxiety Elevated cholesterol HTN (hypertension) Carotid stenosis, bilateral Hx of cardiac pacemaker Neuropathy Pulmonary fibrosis CAD (coronary artery disease) Osteomyelitis Surgical History (Updated 04/02/24 @ 12:51 by Cyndy Pa) S/P PICC central line placement (~03/2022) Hx of appendectomy History of open reduction and internal fixation (ORIF) procedure Hx of arthroscopic knee surgery Hx of hysterectomy History of esophagogastroduodenoscopy (EGD) Hx of colonoscopy Social History Household Members: Children Household Members Other:: adult son Housing: House Are you a primary career technical counselor to a significant other at home: No Do you presently have visiting nurse or other home services: No Comment: aware of trip hazard Patient Tobacco Use Status: Never used Tobacco Second Hand Smoke Exposure: Yes ( smoked lived together 23 years) service: No Review of Systems Const Denies chills, Denies daytime sleepiness, Reports difficulty sleeping, Denies fatigue, Denies fever(s), Denies frequent falls, Denies headache(s), Denies increased appetite, Denies poor appetite, Denies snoring, Denies weakness, Denies weight gain and Denies weight loss Eyes Denies loss of vision ENT Denies vertigo, Denies dizziness, Denies headache(s) and Denies neck pain Card Denies chest pain at rest, Denies chest pain with activity, Denies syncope, Denies leg edema, Denies palpitations, Denies dyspnea and Denies dyspnea on exertion Resp Denies cough, Denies dyspnea, Denies dyspnea on exertion and Denies snoring GI Denies abdominal pain, Denies constipation, Denies heartburn, Denies diarrhea and Denies nausea Denies urinary frequency, Denies urinary incontinence and Denies urinary urgency Musc Denies abnormal gait, Denies back pain, Denies myalgias, Denies arthralgias, Denies neck pain, Denies numbness and Denies tingling Neuro Denies abnormal gait, Denies vertigo, Denies dizziness, Denies syncope, Denies frequent falls, Denies headache(s), Denies lack of coordination, Denies loss of vision, Denies memory loss, Denies numbness, Denies Other visual disturbances, Denies restless legs, Denies seizure-like activity, Denies tingling, Denies paresthesias, Denies tremor(s) and Denies weakness Psych Denies anxiety, Denies depression, Denies auditory hallucinations, Denies memory loss and Denies visual hallucinations Endo Denies fatigue and Denies palpitations Physical Exam Const Other: General Appearance:? normal, in no acute distress. Heart:? S1, S2 normal, no murmurs. Lungs:? clear anteriorly and posteriorly. Musculoskeletal:? normal. Extremities:? no edema. Psych:? alert, oriented, cognitive function intact, cooperative with exam. Neuro Other: Abnormal Neurological Findings:?Decreased pin prick below mid ham level. Preserved vibration. Mental Status: alert and oriented X 3. Normal attention, orientation, memory, and affect. Cranial Nerves: Pupils are equal, round, and reactive to light. External ocular muscles are intact. Visual bai are full, no ptosis. Face is symmetrical, no facial weakness or droop. Facial sensations are normal. Tongue protrudes in midline. Palate elevates symmetrically. Shoulder shrugging is normal Motor Examination: Normal muscle tone, bulk and strength. No atrophy or fasciculations. No drift of the extended upper extremities. DTR 2+. Plantars are flexor. Sensory Exam: As above. Coordination: No ataxia. No titubation. Gait Exam: Within normal limits. Cerebellar Signs: [id number] is okay. Extrapyramidal System: No tremor, rigidity with normal facial expressions. No bradykinesia. No bradyphrenia. Normal arm swing and posture. No propulsion or retropulsion. Speech: Normal. 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 Nerve conduction study is slightly worse compared to the study done in 2018. EMG in the L4-S1 innervated muscles is consistent with neuropathic changes. Assessment & Plan Assessment & Plan (1) Peripheral neuropathy: Code(s): G62.9 - Polyneuropathy, unspecified Category: Medical Qualifiers: Peripheral neuropathy type: polyneuropathy, unspecified Qualified Code(s): G62.9 - Polyneuropathy, unspecified Plan: Continue gabapentin 300mg 1 capsule twice a day and 2 capsules at bedtime. Continue amitriptyline 10mg 2 tablets at bedtime. (2) Insomnia: Code(s): G47.00 - Insomnia, unspecified Category: Medical Qualifiers: Insomnia type: primary Qualified Code(s): F51.01 - Primary insomnia Plan: Continue doxepin 10mg 1 capsule at bedtime. Continue triazolam 0.25mg 1 tablet at bedtime as needed for sleep #30 for 30 days. Medications: Changed From doxepin 10 mg PO BEDTIME To doxepin 10 mg PO BEDTIME 90 caps 1RF 90 days Refilled gabapentin 300 mg orally 1 capsule twice a day and 2 capsules at bedtime; 360 caps 1RF 90 days amitriptyline 20 mg (2 x 10 mg) PO BEDTIME 180 tabs 1RF 90 days Coding Level of Care Code Est Pt Level 4 (18059) Diagnoses Peripheral polyneuropathy G62.9 Peripheral neuropathy type: polyneuropathy, unspecified Primary insomnia F51.01 Insomnia type: primary
--- OUTSIDE RECORDS SUMMARY | 2025-09-21 16:08 | XMS_ITS | Patient Health Record ---
Author Organization [facility] Address [address] [place] [address] Support Name Relationship Address Phone ROYAL BAJWA Guarantor Unknown Reason For Referral No Information Medications Medication SIG (Take, Route, Frequency, Duration) Notes Start Date End Date Status Calcium Citrate 500MG 1 ORAL twice daily ; Duration: -3 [facility] 06/12/2012 Active Simvastatin 20MG 1 ORAL daily; Durati on: - [facility] 06/12/2012 Active traZODone HCl 50MG 1/2 ORAL at bedtime; Duration: - [facility] 07/26/2014 Active Metoprolol Succinate 25MG 1 ORAL twice d aily; Duration: -3 [facility] 06/12/2012 Active Omeprazole 20MG 1 ORAL daily; Durati on: -3 [facility] 06/12/2012 Active Vitamin B-12 500MCG ORAL; Duration: -3 [facility] 07/26/2014 Active Aspirin EC 81MG 1 ORAL daily; Durati on: - [facility] 06/12/2012 Active Triamcinolone Acetonide 0.025% External; Duration: -3 [facility] 07/26/2014 Activ e Vitamin A 23543FFCT ORAL; Duration: -3 [facility] 07/26/2014 Active Biotin 5MG ORAL; Duration: -3 [facility]- 07/26/2014 Active Problems Problem Type SNOMED Code ICD Code Onset Dates Problem Status W/U Status Risk Notes Problem Hyperlipidemia (89802964) Other and unspecified hyperlipidemia (272.4) Active confirmed Major Problem Benign essential hypertension (8406104) Essential hypertension, benign (401.1) Active confirmed Major Problem Esophageal reflux (341266245) Esophageal reflux (530.81) Active confirmed Major Problem Menopausal symptom (70981955) Symptomatic menopausal or female climacteric states (627.2) Active confirmed Major Problem Gynecological examination normal (670195216291988) Routine gynecological examination (V72.31) Active confirmed Major Problem Screening for malignant neoplasm of colon (923614487) Special screening for malignant neoplasms, colon (V76.51) Active confirmed Major Plan Of Treatment No Information Insurance Providers Payer Name Payer Address Payer Phone Subscriber Number Group Number Insured Name Patient Relationship to Insured Coverage Start Date Coverage End Date MEDICARE [address] [place], [place] [id number] ROYAL BAJWA Self - patient is the insured [employer] [address] [place] [address] [phone] [id number] ROYAL BAJWA Self - patient is the insured
--- OUTSIDE RECORDS SUMMARY | 2025-09-21 16:09 | XMS_ITS | Patient Health Record ---
Author Organization [facility] Jamil erasmo Sanjay Address [address] [place] [address] Care Team Providers Care Lump Roller Name Role Phone Fina Moody Primary Care Provider Steven Lynn Unavailable [phone] Allergies Allergen (clinical drug ingredient) Drug/Non Drug Allergy documented on EMR Reaction Allergy Type Onset Date Status morphine Morphine very sick Drug Allergy Active Reason For Referral No Information Medications Medication SIG (Take, Route, Frequency, Duration) Notes Start Date End Date Status Doxepin HCl 10 MG 1 capsule at bedtime Orally every other night Active Plavix Active Cephalexin 500 MG 1 capsule Orally asiya ry 8 hrs; Duration: 10 days Not-Taking Esbriet 267 MG 1 tablet with food Orally Three times a day; Duration: 7 day(s) Active eliquis 5 mg Active Triazolam 0.25 MG 1 tablet at bedtime as needed Orally Once a day Active Simvastatin 20 MG 1 tablet in the evening Orally Once a day; Duration: 30 day(s) Active Prevagen Active hydroCHLOROthiazide 25 MG 1 tablet in th e morning Orally Once a day; Duration: 30 day(s) Not-Taking Gabapentin 300 MG 1 capsule Orally Onc e a day; Duration: 30 day(s) Active Omeprazole 20 MG 1 capsule 30 minutes before morning meal Orally Once a day; Duration: 30 day(s) Active Multivitamin Active Immunizations Vaccine Route Administration Date Status Comme nts Influenza Unknown 09/11/2024 Administered Social History Tobacco Use: Social History Observation [...] Problem Status W/U Status Risk Notes Problem Bilateral atherosclerosis of arteries of lower limbs (disorder) (82422867698333407 ) Atherosclerosis of [place] artery of both lower extremities, with unspecified presence of clinical manifestation (I70.203) Active confirmed Problem Ulcer of toe of right foot (disorder) (07969137525690829 ) Skin ulcer of toe of right foot, limited to breakdown of skin (L97.511) Active confirmed Vital Signs Blood pressure diastolic 83 mm Hg 07/22/2025 Height 5ft 4.5in in 07/22/2025 Blood pressure systolic 137 mm Hg 07/22/2025 Weight 177 lbs 07/22/2025 BMI 29.91 kg/m2 07/22/2025 Procedures Procedure Date Ordered Date Performed Result Body Sit e 29343-XXHANPP NAIL, 1-5 10/22/2024 N/A 73871-DFAH SKIN LESIONS, OVER 4 10/22/2024 N/A Z2295-VQXCZLHI DYSTROPHIC NAILS ANY # 10/22/2024 N/A 28751-JCEEQXQ NAIL, 1-5 01/28/2025 N/A 79831-ZZIE SKIN LESIONS, OVER 4 01/28/2025 N/A D8628-UIGEMMUX DYSTROPHIC NAILS ANY # 01/28/2025 N/A 22070-REKQUHZ NAIL, 1-5 04/21/2025 N/A 70893-RNMN SKIN LESIONS, OVER 4 04/21/2025 N/A H7335-OQDOOSQQ DYSTROPHIC NAILS ANY # 04/21/2025 N/A 40023-WANQPNM NAIL, 1-5 07/22/2025 N/A 74268- Debride <25 sq cm 07/22/2025 N/A 52903-EYXC SKIN LESIONS, OVER 4 07/22/2025 N/A Y5516-OCKXDLMP DYSTROPHIC NAILS ANY # 07/22/2025 N/A Encounters Encounter Location Date Provider Diagnosis [facility] [address] [address] 10/22/2024 Steven Faye Atherosclerosis of [place] artery of both lower extremities, with unspecified presence of clinical manifestation I70.203 ; Tinea unguium B35.1 ; Pain in right toe(s) M79.674 and Pain in left toe(s) M79.[address] [address] 01/28/2025 Steven Faye Atherosclerosis of [place] artery of both lower extremities, with unspecified presence of clinical manifestation I70.203 ; Tinea unguium B35.1 ; Pain in right toe(s) M79.674 and Pain in left toe(s) M79.[address] [address] 04/21/2025 Steven Faye Atherosclerosis of [place] artery of both lower extremities, with unspecified presence of clinical manifestation I70.203 ; Tinea unguium B35.1 ; Pain in right toe(s) M79.674 and Pain in left toe(s) M79.[address] [address] 07/22/2025 Steven Faye Atherosclerosis of [place] artery of both lower extremities, with unspecified presence of clinical manifestation I70.203 ; Tinea unguium B35.1 ; Pain in right toe(s) M79.674 ; Pain in left toe(s) M79.675 and Skin ulcer of toe of right foot, limited to breakdown of skin L97.[address] [address] 04/21/2025 Steven Faye [address] [address] 07/22/2025 Steven Faye Assessments Encounter Date Diagnosis (ICD Code) Assessment Notes Treatment Notes Treatment Clinical Notes Section Notes 10/22/2024 Tinea unguium (ICD-10 - B35.1) 10/22/2024 Atherosclerosis of [place] artery of both lower extremities, with unspecified presence of clinical manifestation (ICD-10 - I70.203) 01/28/2025 Tinea unguium (ICD-10 - B35.1) 01/28/2025 Atherosclerosis of [place] artery of both lower extremities, with unspecified presence of clinical manifestation (ICD-10 - I70.203) 04/21/2025 Tinea unguium (ICD-10 - B35.1) 04/21/2025 Atherosclerosis of [place] artery of both lower extremities, with unspecified presence of clinical manifestation (ICD-10 - I70.203) 07/22/2025 Tinea unguium (ICD-10 - B35.1) 07/22/2025 Atherosclerosis of [place] artery of both lower extremities, with unspecified presence of clinical manifestation (ICD-10 - I70.203) 04/21/2025 Pain in right toe(s) (ICD-10 - M79.674) 07/22/2025 Pain in right toe(s) (ICD-10 - M79.674) 10/22/2024 Pain in right toe(s) (ICD-10 - M79.674) 01/28/2025 Pain in right toe(s) (ICD-10 - M79.674) 10/22/2024 Pain in left toe(s) (ICD-10 - M79.675) 04/21/2025 Pain in left toe(s) (ICD-10 - M79.675) 01/28/2025 Pain in left toe(s) (ICD-10 - M79.675) 07/22/2025 Pain in left toe(s) (ICD-10 - M79.675) 07/22/2025 Skin ulcer of toe of right foot, limited to breakdown of skin (ICD-10 - L97.511) Patient Educated with: WOUND CARE INSTRUCTIONS. pdf (WOUND CARE INSTRUCTIONS. pdf) Plan Of Treatment Pending Test Test Name Order Date X ray : Foot, right 3V 06/08/2024 73560-DDILAFF NAIL, 1-5 02/17/2024 59494-HFLVEWE NAIL, -05/11/2024 02097-ZTHDATN NAIL, -07/03/2023 25984-QDXUFJO NAIL, -09/05/2023 57668-NOPWSCK NAIL, -12/02/2023 12693-WLCDPWN NAIL, -07/22/2024 84969-JYDZTGN NAIL, -10/22/2024 24925-BPOMOFC NAIL, 1-5 01/28/2025 16608-VIWGKOA NAIL, 1-5 04/21/2025 29799-OTWCYGJ NAIL, 1-5 07/22/2025 46016- Debride <25 sq cm 07/22/2025 77205- Debride <25 sq cm 07/03/2023 48289- Debride <25 sq cm 07/01/2024 70129-CNEZCOC SKIN/TISSUE 06/08/2024 03350-DWAFSZP SKIN/TISSUE 08/31/2024 51567-AGSS SKIN LESIONS, OVER 4 07/22/20 25 20517-VYQA SKIN LESIONS, OVER 4 04/21/20 25 19544-YLHJ SKIN LESIONS, OVER 4 01/29/20 25 36154-VRMM SKIN LESIONS, OVER 4 10/22/20 24 32042-BUML SKIN LESIONS, OVER 4 07/22/20 24 47123-OPDF SKIN LESIONS, OVER 4 12/02/19 24 03035-VLUX SKIN LESIONS, OVER 4 05/11/20 24 72245-YGQY SKIN LESIONS, OVER 4 02/17/20 24 58762-TGDE SKIN LESIONS, 2 TO 4 07/03/20 23 24141-SJMG SKIN LESIONS, 2 TO 4 09/05/20 23 O2260-ZXEJKAPX DYSTROPHIC NAILS ANY # X7786-OJPNTCWU DYSTROPHIC NAILS ANY # P3643-AFFYYXMD DYSTROPHIC NAILS ANY # G4253-UUQKZODT DYSTROPHIC NAILS ANY # W9742-GIIWUMAY DYSTROPHIC NAILS ANY # H8167-DIRJUWPL DYSTROPHIC NAILS ANY # Q4372-SQSHPKMY DYSTROPHIC NAILS ANY # K8419-CIOJPYBX DYSTROPHIC NAILS ANY # L8127-YATRWNVI DYSTROPHIC NAILS ANY # A3180-EQMSSJRF DYSTROPHIC NAILS ANY # 30665-QBEZMWLY OF HEMATOMA/FLUID 024 Next Appt Details Provider Name:Steven Faye , 10/14/2025 01:00:00 PM, [address], [address], [place], [address], Insurance Providers Payer Name Payer Address Payer Phone Subscriber Number Group Number Insured Name Patient Relationship to Insured Coverage Start Date Coverage End Date Medicare National Govt [employer] [address] [place] [address] [phone] [id number] Mundo Vasquez Self - patient is the insured [employer] [address] [place] [address] [phone] [id number] Mundo Vasquez Self - patient is the insured Medical (General) History Medical History History ICD Code Back,Hip,and Knee pain Broken bones CAD (Cholesterol) covid-19 High blood pressure Lung disease Reflux ( GERD) Measles Chicken pox Joint implants/screws Surgical History Surgery Date(Month/Year) broken arm(s) foot surgery tubal ligation 1965 hysterectomy 1975 ankle surgery 2016 knee replacement, left 03/16/24 stent insertion 04/04 Hospitalization History Reason Date(Month/Year) stent insertion complication, internal b leeding 04/04 [facility] - scoped 05/28/23
== END 2025-09-21 15:25 | disposition home or self-care (01) ==
LOC: HO.HSM 14:26
PROVIDERS: PCP Internal Medicine; Visit Provider Registered Nurse
DX: G62.9 Polyneuropathy, unspecified (principal); F51.01 Primary insomnia
CPT/HCPCS: 99214

== ENCOUNTER → 2025-09-21 14:25 | Outpatient (BNVA) | payer MEDICARE, SELFPAY | PROVIDERS: PCP Internal Medicine; Visit Provider Registered Nurse | DX: F51.01 Primary insomnia (principal); G62.9 Polyneuropathy, unspecified; Z79.01 Long term (current) use of anticoagulants | CPT/HCPCS: 99212 ==